=== PATIENT | male | born 1950 | race Caucasian/White ===

== ENCOUNTER 2016-10-27 13:56 | Inpatient (IN) | payer MEDICAID, MEDICARE ==
[2016-10-27 14:15] LABS: ABSOLUTE LYMPHOCYTES (AUTO) 2.4 10^3/uL (0.5-4.7); ABSOLUTE MONOCYTES (AUTO) 1.6 10^3/uL (0.1-1.4); ABSOLUTE NEUT (AUTO) 7.3 10^3/uL (1.7-8.2); BASOPHILS % (AUTO) 0.4 % (0-2); EOSINOPHILS % (AUTO) 0.3 % (0-6); HEMATOCRIT 41.6 % (37.9-51.0); HEMOGLOBIN 14.7 g/dL (13.5-17.0); HGB HCT DIFFERENCE 2.5; MEAN CORPUSCULAR HEMOGLOBIN 35.8 pg (27.0-33.4); MEAN CORPUSCULAR HGB CONC 35.4 g/dL (32.0-36.0); MEAN CORPUSCULAR VOLUME 101 fl (80-97); RED BLOOD COUNT 4.12 10^6/uL (4.35-5.55); RED CELL DISTRIBUTION WIDTH 14.2 % (11.5-14.0); SEGMENTED NEUTROPHILS % (AUTO) 64.3 % (42-78); WHITE BLOOD COUNT 11.3 10^3/uL (4.0-10.5)
[2016-10-27 14:19] LABS: PARTIAL THROMBOPLASTIN TIME 34.5 SEC (23.5-35.8)
--- NOTE | 2016-10-27 14:27 | ER Document Report ---
ED General - General Chief Complaint: General Weakness Stated Complaint: WEAKNESS Time Seen by Provider: 10/27/16 14:05 Mode of Arrival: Ambulatory Information source: Patient Notes: 66 yr old male presents with complaints of weakness of months duration. Pt denies any fevers or chills, nausea or vomiting. Pt ntoes he cannot walk more than 2 steps before he falls. TRAVEL OUTSIDE OF THE [place] IN LAST 30 DAYS: No - HPI Onset: Other Onset/Duration: Persistent Quality of pain: No pain Severity: Moderate Pain Level: Denies Associated symptoms: Weakness Exacerbated by: Denies Relieved by: Denies Similar symptoms previously: Yes Recently seen / treated by doctor: No - Related Data Allergies/Adverse Reactions: No Known Drug Allergies Allergy (Verified 07/08/12 14:32) Past Medical History - Social History Smoking Status: Current Every Day Smoker Cigarette use (# per day): Yes Chew tobacco use (# tins/day): No Smoking Education Provided: No Family History: Reviewed & Not Pertinent - Past Medical History Cardiac Medical History: Reports: Hx Hypercholesterolemia, Hx Hypertension Pulmonary Medical History: Reports: Hx COPD Neurological Medical History: Reports: Hx Seizures Endocrine Medical History: Reports: Hx Diabetes Mellitus Type 2 Psychiatric Medical History: Reports: Hx Depression - Immunizations Hx Diphtheria, Pertussis, Tetanus Vaccination: Yes Hx Pneumococcal Vaccination: 05/01/13 Review of Systems - Review of Systems Notes: PHYSICAL EXAMINATION: GENERAL: chronically ill thin frail appearing male HEAD: Atraumatic, normocephalic. EYES: Pupils equal round and reactive to light, extraocular movements intact, sclera anicteric, conjunctiva are normal. ENT: Nares patent, oropharynx clear without exudates. Moist mucous membranes. NECK: Normal range of motion, supple without lymphadenopathy LUNGS: Breath sounds clear to auscultation bilaterally and equal. No wheezes rales or rhonchi. HEART: Regular rate and rhythm without murmurs ABDOMEN: Soft, nontender, nondistended abdomen. No guarding, no rebound. No masses appreciated. Musculoskeletal: Normal range of motion, no pitting or edema. No cyanosis. NEUROLOGICAL: Cranial nerves grossly intact. Normal speech, extremely weak upon standing Normal sensory, motor exams PSYCH: Normal mood, normal affect. SKIN: Warm, Dry, normal turgor, no rashes or lesions noted. Physical Exam - Vital signs Vitals: Pulse Ox 100 10/27/16 14:12 Course - Re-evaluation Re-evalutation: 10/27/16 14:27 Lab work imaging pending at this time, patient appears very weak however this is chronic, expect electrolyte abnormalities 10/27/16 14:42 Patient's potassium is 2.8 sodium is 125, magnesium levels pending, patient will be given IV fluids and potassium Patient will be admitted since he is unable to ambulate more than a few steps without falling - Vital Signs Vital signs: Temp Pulse Resp BP Pulse Ox 100 10/27/16 14:12 - Laboratory Result Diagrams: 10/27/16 14:05 10/27/16 14:05 Laboratory results interpreted by me: 10/27/16 10/27/16 14:05 14:05 WBC 11.3 H RBC 4.12 L MCV 101 H MCH 35.8 H RDW 14.2 H Monocytes % 14.0 H Absolute Monocytes 1.6 H Sodium 125.7 L Potassium 2.8 L* Chloride 85 L Direct Bilirubin 0.5 H AST 64 H Alkaline Phosphatase 135 H - Diagnostic Test Radiology reviewed: Image reviewed, Reports reviewed - EKG Interpretation by Ma EKG shows normal: Sinus rhythm, [place], Intervals, QRS Complexes Critical Care Note - Critical Care Note Total time excluding time spent on procedures (mins): 33 Comments: 33 minutes of critical care time spent in direct contact evaluating and reevaluating the patient, treating symptoms, reviewing labs and studies and speaking with family and consultants excluding any procedures Discharge - Discharge Clinical Impression: Hyponatremia, Hypokalemia, Weakness Condition: Stable Disposition: ADMITTED INPATIENT Admitting Provider: [facility] Admitted: Telemetry
[2016-10-27 14:35] LABS: ALANINE AMINOTRANSFERASE 42 U/L (21-72); ALBUMIN 4.2 g/dL (3.5-5.0); ALKALINE PHOSPHATASE 135 U/L (38-126); ANION GAP 16 (5-19); ASPARTATE AMINO TRANSFERASE 64 U/L (17-59); BILIRUBIN,DIRECT 0.5 mg/dL (0.0-0.4); BILIRUBIN,TOTAL 1.3 mg/dL (0.2-1.3); BLOOD UREA NITROGEN 11 mg/dL (7-20); CALCIUM 9.5 mg/dL (8.4-10.2); CARBON DIOXIDE 25 mmol/L (22-30); CHLORIDE 85 mmol/L (98-107); CREATINE KINASE 127 U/L (55-170); CREATININE RESULT 0.88 mg/dL (0.52-1.25); GLUCOSE 94 mg/dL (75-110); SODIUM 125.7 mmol/L (137-145); TOTAL PROTEIN 7.4 g/dL (6.3-8.2)
[2016-10-27 14:37] LABS: POTASSIUM 2.8 mmol/L (3.6-5.0)
--- NOTE | 2016-10-27 14:40 | RADIOLOGY REPORT (SQ) ---
EXAM DESCRIPTION: CHEST SINGLE VIEW COMPLETED DATE/TIME: 10/27/2016 2:30 pm REASON FOR STUDY: weak COMPARISON: 07/11/2012 EXAM PARAMETERS: NUMBER OF VIEWS: One view. TECHNIQUE: Single frontal radiographic view of the chest acquired. RADIATION DOSE: NA LIMITATIONS: None. FINDINGS: LUNGS AND PLEURA: No opacities, masses or pneumothorax. No pleural effusion. MEDIASTINUM AND HILAR STRUCTURES: No masses. Contour normal. HEART AND VASCULAR STRUCTURES: Heart normal in size. Normal vasculature. BONES: No acute findings. HARDWARE: None in the chest. OTHER: No other significant finding. IMPRESSION: NO ACUTE RADIOGRAPHIC FINDING IN THE CHEST. TECHNICAL DOCUMENTATION: JOB ID: [id number]
--- NOTE | 2016-10-27 14:40 | RADIOLOGY REPORT (SQ) ---
EXAM DESCRIPTION: CT HEAD WITHOUT COMPLETED DATE/TIME: 10/27/2016 2:25 pm REASON FOR STUDY: weak COMPARISON: 07/08/2012 TECHNIQUE: Axial images acquired through the brain without intravenous contrast. Images reviewed wi th bone, brain and subdural windows. Images stored on PACS. All CT scanners at this facility use dose modulation, iterative reconstruction, and/or weight based d osing when appropriate to reduce radiation dose to as low as reasonably achievable (ALARA). [facility]: Dose Right [facility]: CareDose [facility]: Dose Right [facility]: Teradose 4D [facility]: Head Held High RADIATION DOSE: 62.41 mGy. LIMITATIONS: None. FINDINGS: VENTRICLES: Prominent. CEREBRUM: No masses. No hemorrhage. No midline shift. Areas of low density in the white matter mos t likely due to chronic micro-vascular ischemic change. No evidence for acute infarction. CEREBELLUM: No masses. No hemorrhage. No alteration of density. No evidence for acute infarction. EXTRAAXIAL SPACES: Mild age-related involutional change. No fluid collections. Stable calcified mas s left inferior frontal lobe likely representing a benign meningioma. No new/enlarging masses. ORBITS AND GLOBE: No intra- or extraconal masses. Normal contour of globe without masses. CALVARIUM: No fracture. PARANASAL SINUSES: No fluid or mucosal thickening. SOFT TISSUES: No mass or hematoma. OTHER: No other significant finding. IMPRESSION: NO ACUTE INTRACRANIAL PROCESS. NO SIGNIFICANT CHANGE FROM PRIOR STUDY. TECHNICAL DOCUMENTATION: JOB ID: [id number] Quality ID # [id number]: Final reports with documentation of one or more dose reduction techniques (e.g., Au tomated exposure control, adjustment of the mA and/or kV according to patient size, use of iterative reconstruction technique) 2010 [employer]- All Rights Reserved
[2016-10-27] MEDS ORDERED: POTASSIUM CHLORIDE 10 MEQ TABLET.SA PO ONE (14:41)
[2016-10-27 14:46] LABS: CREATINE KINASE MB 0.97 ng/mL (<4.55)
[2016-10-27 14:47] LABS: TROPONIN I < 0.012 ng/mL
[2016-10-27] MEDS: NORMAL SALINE 1000 ML 1,000 ML IV PRN ×2 (14:49→16:20)
[2016-10-27] MEDS: MAGNESIUM SULFATE/D5W 100 ML IV SCH ×2 (15:18→16:20)
[2016-10-27] MEDS: LORAZEPAM 1 MG TABLET (TAPER DOSING) PO SCH ×2 (18:04→23:43)
[2016-10-27] MEDS ORDERED: NORMAL SALINE 1000 ML 1,000 ML IV PRN (18:15)
[2016-10-27] MEDS ORDERED: DEXTROSE 40% GEL 15 GM TUBE X 2 PO PRN (18:17)
[2016-10-27] MEDS ORDERED: DEXTROSE 50%-WATER SYRINGE 12.5 GM/25 ML DOSE IV PRN (18:17)
[2016-10-27] MEDS ORDERED: GLUCAGON,HUMAN RECOMB 1 MG INJ IM PRN (18:17)
[2016-10-27] MEDS ORDERED: DEXTROSE 40% GEL 15 GM TUBE PO PRN (18:17)
[2016-10-27] MEDS ORDERED: DEXTROSE 50%-WATER SYRINGE 25 GM/50 ML DOSE IV PRN (18:17)
[2016-10-27] MEDS ORDERED: INSULIN LISPRO 100 UNIT/ML 3 ML VIAL SUBCUT PRN (18:19)
--- NOTE | 2016-10-27 21:13 | EKG REPORT ---
SEVERITY:- ABNORMAL ECG - SINUS RHYTHM RIGHT BUNDLE BRANCH BLOCK : Confirmed by: Tacos Parsons 27-Oct-2016 21:11:16
[2016-10-28] MEDS: LORAZEPAM 1 MG TABLET (TAPER DOSING) PO SCH ×2 (05:26→13:02)
[2016-10-28] MEDS: CHOLECALCIFEROL (D3) 1,000 UNIT TABLET PO SCH (09:46)
[2016-10-28] MEDS: PHENYTOIN SODIUM EXTENDED 100 MG CAPSULE PO SCH (09:46)
[2016-10-28] MEDS: DULOXETINE HCL 30 MG CAPSULE.DR PO SCH (09:46)
[2016-10-28 09:47] LABS: ALANINE AMINOTRANSFERASE 43 U/L (21-72); ALBUMIN 3.1 g/dL (3.5-5.0); ALKALINE PHOSPHATASE 106 U/L (38-126); ANION GAP 7 (5-19); ASPARTATE AMINO TRANSFERASE 55 U/L (17-59); BILIRUBIN,DIRECT 0.4 mg/dL (0.0-0.4); BLOOD UREA NITROGEN 9 mg/dL (7-20); CALCIUM 7.9 mg/dL (8.4-10.2); CARBON DIOXIDE 27 mmol/L (22-30); CHLORIDE 96 mmol/L (98-107); CREATININE RESULT 0.65 mg/dL (0.52-1.25); GLUCOSE 87 mg/dL (75-110); MAGNESIUM 1.4 mg/dL (1.6-2.3); SODIUM 129.5 mmol/L (137-145); TOTAL PROTEIN 5.9 g/dL (6.3-8.2)
[2016-10-28] MEDS: LOSARTAN POTASSIUM 50 MG TABLET PO SCH (09:47)
[2016-10-28] MEDS: THIAMINE HCL 100 MG TABLET PO SCH (09:47)
[2016-10-28] MEDS: MULTIVITAMIN TABLET PO SCH (09:47)
[2016-10-28] MEDS: TAMSULOSIN HCL 0.4 MG CAP.SR.24H PO SCH ×2 (09:48→21:13)
[2016-10-28] MEDS: POTASSIUM CHLORIDE 10 MEQ TABLET.SA PO SCH (09:48)
[2016-10-28] MEDS: VITAMIN E (DL, ACETATE) 400 UNIT CAPSULE PO SCH (09:50)
[2016-10-28] MEDS: TIOTROPIUM BROMIDE DPI 5 CAP/KIT (18 MCG/CAP) IH SCH (09:52)
[2016-10-28 09:53] LABS: POTASSIUM 2.7 mmol/L (3.6-5.0)
[2016-10-28] MEDS ORDERED: (PENDING PHARMACY ID) (Cholecalciferol (Vitamin D3) [Vitamin D3] 2,000 UNIT) PO SCH (10:00)
[2016-10-28] MEDS ORDERED: (PENDING PHARMACY ID) (Vitamin E [Vitamin E] 400 UNIT) PO SCH (10:00)
[2016-10-28] MEDS ORDERED: HYDROCHLOROTHIAZIDE 25 MG TABLET PO SCH (10:00)
[2016-10-28] MEDS ORDERED: (PENDING PHARMACY ID) (Duloxetine Hcl [Duloxetine Hcl] 60 MG) PO SCH (10:00)
[2016-10-28] MEDS ORDERED: (PENDING PHARMACY ID) (Potassium Chloride [Potassium Chloride] 10 MEQ) PO SCH (10:00)
[2016-10-28] MEDS ORDERED: [UNRECOGNIZED DRUG - OTHER] PO SCH (10:00)
[2016-10-28] MEDS ORDERED: (PENDING PHARMACY ID) (Multivit-Min/Fa/Lycopen/Lutein [Men 50 Plus Multivitamin Tab] 1 TAB PO SCH (10:00)
[2016-10-28] MEDS: MAGNESIUM SULFATE/D5W 1 GM/100 ML RTUPB IV SCH ×2 (13:43→14:57)
[2016-10-28] MEDS: POTASSI CL 20 MEQ/50 ML RIDER 20 MEQ/50 ML RTUPB IV SCH ×3 (16:04→19:30)
[2016-10-28] MEDS: METFORMIN HCL 500 MG TABLET PO SCH (16:09)
[2016-10-28] MEDS ORDERED: (PENDING PHARMACY ID) (Metformin Hcl [Metformin Hcl Er] 500 MG) PO SCH (17:00)
[2016-10-28] MEDS ORDERED: LORAZEPAM 1 MG TABLET (TAPER DOSING) PO PRN (20:45)
[2016-10-28] MEDS: ATORVASTATIN CALCIUM 10 MG TABLET PO SCH (21:13)
[2016-10-28] MEDS ORDERED: (PENDING PHARMACY ID) (Pravastatin Sodium [Pravastatin Sodium] 40 MG) PO SCH (22:00)
--- NOTE | 2016-10-29 01:04 | PDOC H&P ---
History of Present Illness Admission Date/PCP: 10/27/16 15:03 SANTIAGO SEGUNDO MD Patient complains of: Generalized weakness, Difficulty with ambulation, Alcohol intoxication History of Present Illness: MATEO ROCK is a 66 year old male patient of Dr Segundo who was brought to the ED by family with reported generalized weakness. Patient is a poor historian but his record did revealed significant alcohol abuse, ongoing symptoms for several weeks. Significant alcohol ingestion and difficulty with ambulating with fall. In the ED his initial evwaaluuation was remarkable for inability to walk and his serum alcohol was very elevated. There is no reported observed chest pain or difficulty with breathing. No fever or chills.. No reported vomiting or diarrhea. His comorbidities include HTN, HLD, DM Type 2,, Seizures, Depression and alcohol abuse Past Medical History Cardiac Medical History: Reports: Hyperlipidema, Hypertension Pulmonary Medical History: Reports: Chronic Obstructive Pulmonary Disease (COPD) Neurological Medical History: Reports: Seizures Endocrine Medical History: Reports: Diabetes Mellitus Type 2 Psychiatric Medical History: Reports: Depression Social History Smoking Status: Current Every Day Smoker Cigarettes Packs Per Day: 0.5 Number of Years Smokin Last Time Smoked: 10/27/16 Frequency of Alcohol Use: Heavy Hx Recreational Drug Use: Yes Drugs: Marijuana Hx Prescription Drug Abuse: No - Advance Directive Resuscitation Status: Full Code Family History Family History: Reviewed & Not Pertinent Parental Family History Reviewed: Yes Children Family History Reviewed: Yes Sibling(s) Family History Reviewed.: Yes Medication/Allergy Home Medications: Alendronate Sodium [Alendronate Sodium] 70 mg PO WE 10/27/16 Atenolol [Atenolol] 100 mg PO DAILY 10/27/16 Cholecalciferol (Vitamin D3) [Vitamin D3] 2,000 unit PO DAILY 10/27/16 Ciprofloxacin HCl [Cipro] 500 mg PO Q12 10/27/16 Duloxetine HCl [Duloxetine HCl] 60 mg PO DAILY 10/27/16 Lorazepam [Lorazepam] 1 mg PO Q12HP PRN 10/27/16 Metformin HCl [Metformin HCl ER] 500 mg PO WSUPPER 10/27/16 Multivit-Min/FA/Lycopen/Lutein [Men 50 Plus Multivitamin Tab] 1 tab PO DAILY Phenytoin Sodium Extended 300 mg PO DAILY 10/27/16 Potassium Chloride 10 meq PO DAILY 10/27/16 Pravastatin Sodium [Pravastatin Sodium] 40 mg PO QHS 10/27/16 Tamsulosin HCl [Flomax 0.4 mg Cap.sr] 0.4 mg PO Q12 10/27/16 Telmisartan/Hydrochlorothiazid [Telmisartan-Hctz 80-25 mg Tab] 1 tab PO DAILY Thiamine HCl [Vitamin B-1] 100 mg PO DAILY 10/27/16 Tiotropium [place] [Spiriva Handihaler 5 Cap/Kit (18 Mcg/Cap)] 1 cap IH DAILY Vitamin E 400 unit PO DAILY 10/27/16 Allergies/Adverse Reactions: No Known Drug Allergies Allergy (Verified 07/08/12 14:32) Review of Systems Constitutional: PRESENT: weakness - generalized. ABSENT: chills, fever(s), headache(s), weight gain, weight loss Eyes: PRESENT: visual disturbances - use corrective glasses Ears: ABSENT: hearing changes Cardiovascular: ABSENT: chest pain, dyspnea on exertion, edema, orthropnea, palpitations Respiratory: ABSENT: cough, hemoptysis Gastrointestinal: ABSENT: abdominal pain, constipation, diarrhea, hematemesis, hematochezia, nausea, vomiting Genitourinary: ABSENT: dysuria, hematuria Musculoskeletal: ABSENT: joint swelling Integumentary: ABSENT: rash, wounds Neurological: PRESENT: abnormal gait, frequent falls, lack of coordination, weakness Psychiatric: ABSENT: anxiety, depression, homidical ideation, suicidal ideation Endocrine: ABSENT: cold intolerance, heat intolerance, menstrual abnormalities, polydipsia, polyuria Hematologic/Lymphatic: ABSENT: easy bleeding, easy bruising, lymphadenopathy Allergic/Immunologic: ABSENT: as per HPI, seasonal rhinorrhea, other Physical Exam Vital Signs: Temp Pulse Resp BP Pulse Ox 97.6 F 77 20 100/78 95 10/28/16 08:19 10/28/16 08:19 10/28/16 08:19 10/28/16 08:19 10/28/16 08:19 Intake & Output 10/27/16 10/28/16 10/29/16 06:59 06:59 06:59 Intake Total 1875 Output Total 625 Balance 1250 Weight 83.7 kg General appearance: PRESENT: no acute distress, disheveled Head exam: PRESENT: atraumatic, normocephalic Eye exam: PRESENT: conjunctiva pink, EOMI, PERRLA. ABSENT: scleral icterus Ear exam: PRESENT: normal external ear exam Mouth exam: PRESENT: moist, tongue midline Teeth exam: PRESENT: dental caries, poor dentation Throat exam: ABSENT: post pharyngeal erythema, tonsillar erythema, tonsillar exudate, tonsillogmegaly, other Neck exam: PRESENT: full ROM. ABSENT: carotid bruit, JVD, lymphadenopathy, thyromegaly Respiratory exam: PRESENT: clear to auscultation vinnie, decreased breath sounds Cardiovascular exam: PRESENT: RRR. ABSENT: diastolic murmur, rubs, systolic murmur Pulses: PRESENT: normal dorsalis pedis pul, +2 pedal pulses bilateral Vascular exam: PRESENT: normal capillary refill GI/Abdominal exam: PRESENT: normal bowel sounds, soft. ABSENT: distended, guarding, mass, organolmegaly, rebound, tenderness Rectal exam: PRESENT: deferred Extremities exam: PRESENT: pedal edema Musculoskeletal exam: PRESENT: deformity - related to joint involvement with arthritis Neurological exam: PRESENT: alert, awake, oriented to person, oriented to place , oriented to time, oriented to situation, CN II-XII grossly intact. ABSENT: motor sensory deficit Psychiatric exam: PRESENT: appropriate affect, normal mood. ABSENT: homicidal ideation, suicidal ideation Skin exam: PRESENT: dry, intact, warm. ABSENT: cyanosis, rash Results Laboratory Results: See [facility] for laboratory results that form a significant portion of my medical decision making in this case. Impressions: Chest X-Ray 10/27/16 14:06 IMPRESSION: NO ACUTE RADIOGRAPHIC FINDING IN THE CHEST. Head CT 10/27/16 14:06 IMPRESSION: NO ACUTE INTRACRANIAL PROCESS. NO SIGNIFICANT CHANGE FROM PRIOR STUDY. Assessment & Plan - Diagnosis (1) Alcohol intoxication in active alcoholic with delirium Is this a current diagnosis for this admission?: YesPlan: See admitting physician orders (2) Hypokalemia Is this a current diagnosis for this admission?: YesPlan: See admitting physician orders (3) Hyponatremia Is this a current diagnosis for this admission?: YesPlan: See admitting physician orders (4) Weakness Is this a current diagnosis for this admission?: YesPlan: See admitting physician orders - Time Time Spent: 50 to 70 Minutes Anticipated discharge: SNF Within: Other - Inpatient Certification Medical Necessity: Need Close Monitoring Due to Risk of Patient Decompensation, Need For IV Fluids, Need For Continuous Telemetry Monitoring, Risk of Complication if Not Cared For in Hospital Post Hospital Care: D/C or Transfer Summary - Plan Summary Plan Summary: See admitting physician orders
[2016-10-29] MEDS: LORAZEPAM 1 MG TABLET (TAPER DOSING) PO SCH ×4 (03:09→20:57)
[2016-10-29 06:43] LABS: ANION GAP 8 (5-19); BLOOD UREA NITROGEN 9 mg/dL (7-20); CALCIUM 8.6 mg/dL (8.4-10.2); CARBON DIOXIDE 26 mmol/L (22-30); CHLORIDE 97 mmol/L (98-107); CREATININE RESULT 0.72 mg/dL (0.52-1.25); GLUCOSE 88 mg/dL (75-110); MAGNESIUM 1.5 mg/dL (1.6-2.3); SODIUM 131.4 mmol/L (137-145)
[2016-10-29 06:58] LABS: POTASSIUM 3.7 mmol/L (3.6-5.0)
[2016-10-29] MEDS ORDERED: (PENDING PHARMACY ID) (Alendronate Sodium [Alendronate Sodium] 70 MG) PO SCH (08:38)
[2016-10-29] MEDS: DULOXETINE HCL 30 MG CAPSULE.DR PO SCH (09:41)
[2016-10-29] MEDS: PHENYTOIN SODIUM EXTENDED 100 MG CAPSULE PO SCH (09:41)
[2016-10-29] MEDS: METFORMIN HCL 500 MG TABLET PO SCH ×2 (09:41→17:27)
[2016-10-29] MEDS: LOSARTAN POTASSIUM 50 MG TABLET PO SCH (09:42)
[2016-10-29] MEDS: POTASSIUM CHLORIDE 10 MEQ TABLET.SA PO SCH ×3 (09:42→14:18)
[2016-10-29] MEDS: THIAMINE HCL 100 MG TABLET PO SCH (09:43)
[2016-10-29] MEDS: TAMSULOSIN HCL 0.4 MG CAP.SR.24H PO SCH ×2 (09:43→21:03)
[2016-10-29] MEDS: CHOLECALCIFEROL (D3) 1,000 UNIT TABLET PO SCH (09:43)
[2016-10-29] MEDS: MULTIVITAMIN TABLET PO SCH (09:43)
[2016-10-29] MEDS: VITAMIN E (DL, ACETATE) 400 UNIT CAPSULE PO SCH (09:43)
[2016-10-29] MEDS: TIOTROPIUM BROMIDE DPI 5 CAP/KIT (18 MCG/CAP) IH SCH (09:44)
[2016-10-29] MEDS: MAGNESIUM SULFATE/D5W 100 ML IV SCH ×2 (09:46→11:18)
--- NOTE | 2016-10-29 19:59 | PDOC PROGRESS REPORT ---
Subjective Progress Note for:: 10/29/16 Subjective:: Patient denied any chest pain or difficulty with breathing. No nausea or vomiting. Tolerating oral feeding. No constipation. No reported fever or chills. He remain fairly lucid sine last clinical evaluation. Physical Exam Vital Signs: Temp Pulse Resp BP Pulse Ox 97.7 F 70 18 115/96 H 93 10/29/16 07:16 10/29/16 07:16 10/29/16 07:16 10/29/16 07:16 10/29/16 07:16 Intake & Output 10/28/16 10/29/16 10/30/16 06:59 06:59 06:59 Intake Total 1875 580 Output Total 625 1450 Balance 1250 -870 Weight 83.7 kg 86.8 kg Physical Exam: General appearance: PRESENT: no acute distress, disheveled Head exam: PRESENT: atraumatic, normocephalic Eye exam: PRESENT: conjunctiva pink, EOMI, PERRLA. ABSENT: scleral icterus Mouth exam: PRESENT: moist, tongue midline Teeth exam: PRESENT: dental caries, poor dentation Throat exam: ABSENT: post pharyngeal erythema, tonsillar erythema, tonsillar exudate, tonsillogmegaly, other Neck exam: PRESENT: full ROM. ABSENT: carotid bruit, JVD, lymphadenopathy, thyromegaly Respiratory exam: PRESENT: clear to auscultation vinnie, decreased breath sounds Cardiovascular exam: PRESENT: RRR. ABSENT: diastolic murmur, rubs, systolic murmur GI/Abdominal exam: PRESENT: normal bowel sounds, soft. ABSENT: distended, guarding, mass, organomegaly, rebound, tenderness Extremities exam: PRESENT: pedal edema Musculoskeletal exam: PRESENT: deformity - related to joint involvement with arthritis Neurological exam: PRESENT: alert, awake, oriented to person, oriented to place , oriented to time, oriented to situation, CN II-XII grossly intact. ABSENT: motor sensory deficit Psychiatric exam: PRESENT: appropriate affect, normal mood. ABSENT: homicidal ideation, suicidal ideation Skin exam: PRESENT: dry, intact, warm. ABSENT: cyanosis, rash Results Laboratory Results: 10/29/16 05:21 10/28/16 10/29/16 09:03 05:21 Sodium 129.5 L 131.4 L Potassium 2.7 L* 3.7 D Chloride 96 L 97 L Carbon Dioxide 27 26 Anion Gap 7 8 BUN 9 9 Creatinine 0.65 0.72 Est GFR ( Amer) > 60 > 60 Est GFR (Non-Af Amer) > 60 > 60 Glucose 87 88 Calcium 7.9 L 8.6 Magnesium 1.4 L 1.5 L Total Bilirubin 1.0 AST 55 ALT 43 Alkaline Phosphatase 106 Total Protein 5.9 L Albumin 3.1 L Impressions: Chest X-Ray 10/27/16 14:06 IMPRESSION: NO ACUTE RADIOGRAPHIC FINDING IN THE CHEST. Head CT 10/27/16 14:06 IMPRESSION: NO ACUTE INTRACRANIAL PROCESS. NO SIGNIFICANT CHANGE FROM PRIOR STUDY. Assessment & Plan - Diagnosis (1) Alcohol intoxication in active alcoholic with delirium Is this a current diagnosis for this admission?: YesPlan: See covering attending physician orders (2) Hypokalemia Is this a current diagnosis for this admission?: YesPlan: See covering attending physician orders. There is some improvement in his hypokalemia. He will receive further potassium replacement therapy. (3) Hyponatremia Is this a current diagnosis for this admission?: YesPlan: See covering attending physician orders (4) Weakness Is this a current diagnosis for this admission?: YesPlan: See covering attending physician orders . I will request PT evaluation for ambulatory safety. (5) Hypomagnesemia Is this a current diagnosis for this admission?: YesPlan: Patient will receive replacement therapy. Low level most likely related to his alcohol associated electrolytes derangement. 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
[2016-10-29] MEDS: ATORVASTATIN CALCIUM 10 MG TABLET PO SCH (21:03)
[2016-10-30] MEDS: METFORMIN HCL 500 MG TABLET PO SCH ×2 (10:51→17:18)
[2016-10-30] MEDS: TIOTROPIUM BROMIDE DPI 5 CAP/KIT (18 MCG/CAP) IH SCH (10:51)
[2016-10-30] MEDS: PHENYTOIN SODIUM EXTENDED 100 MG CAPSULE PO SCH (10:52)
[2016-10-30] MEDS: VITAMIN E (DL, ACETATE) 400 UNIT CAPSULE PO SCH (10:52)
[2016-10-30] MEDS: CHOLECALCIFEROL (D3) 1,000 UNIT TABLET PO SCH (10:52)
[2016-10-30] MEDS: POTASSIUM CHLORIDE 10 MEQ TABLET.SA PO SCH (10:53)
[2016-10-30] MEDS: MULTIVITAMIN TABLET PO SCH (10:53)
[2016-10-30] MEDS: TAMSULOSIN HCL 0.4 MG CAP.SR.24H PO SCH ×2 (10:53→22:45)
[2016-10-30] MEDS: THIAMINE HCL 100 MG TABLET PO SCH (10:53)
[2016-10-30] MEDS: DULOXETINE HCL 30 MG CAPSULE.DR PO SCH (10:53)
[2016-10-30] MEDS: LOSARTAN POTASSIUM 50 MG TABLET PO SCH (10:54)
--- NOTE | 2016-10-30 20:58 | PDOC PROGRESS REPORT ---
Subjective Progress Note for:: 10/30/16 Subjective:: Patient , alcoholic admitted because of electrolyte derangement and alcohol intoxication, he was seen by the bedside Physical Exam Vital Signs: Temp Pulse Resp BP Pulse Ox 98.2 F 100 18 128/82 H 99 10/30/16 20:20 10/30/16 20:20 10/30/16 20:20 10/30/16 20:20 10/30/16 20:20 Intake & Output 10/29/16 10/30/16 10/31/16 06:59 06:59 06:59 Intake Total 580 1900 958 Output Total 1450 500 200 Balance -870 1400 758 Weight 86.8 kg 86.8 kg General appearance: PRESENT: no acute distress Eye exam: PRESENT: PERRLA Respiratory exam: PRESENT: decreased breath sounds Cardiovascular exam: PRESENT: +S1, +S2 GI/Abdominal exam: PRESENT: soft Neurological exam: PRESENT: alert, CN II-XII grossly intact Results Laboratory Results: 10/29/16 05:21 Impressions: Chest X-Ray 10/27/16 14:06 IMPRESSION: NO ACUTE RADIOGRAPHIC FINDING IN THE CHEST. Head CT 10/27/16 14:06 IMPRESSION: NO ACUTE INTRACRANIAL PROCESS. NO SIGNIFICANT CHANGE FROM PRIOR STUDY. Assessment & Plan - Diagnosis (1) Alcohol intoxication in active alcoholic with delirium Is this a current diagnosis for this admission?: Yes (2) Hypokalemia Is this a current diagnosis for this admission?: Yes (3) Hypomagnesemia Is this a current diagnosis for this admission?: Yes (4) Hyponatremia Is this a current diagnosis for this admission?: Yes - Plan Summary Plan Summary: follow lab data ,continue treatment
[2016-10-30 21:42] LABS: ALANINE AMINOTRANSFERASE 37 U/L (21-72); ALKALINE PHOSPHATASE 109 U/L (38-126); ANION GAP 7 (5-19); ASPARTATE AMINO TRANSFERASE 38 U/L (17-59); BILIRUBIN,DIRECT 0.5 mg/dL (0.0-0.4); BILIRUBIN,TOTAL 0.7 mg/dL (0.2-1.3); BLOOD UREA NITROGEN 13 mg/dL (7-20); CALCIUM 9.5 mg/dL (8.4-10.2); CARBON DIOXIDE 27 mmol/L (22-30); CHLORIDE 99 mmol/L (98-107); CREATININE RESULT 0.75 mg/dL (0.52-1.25); GLUCOSE 96 mg/dL (75-110); POTASSIUM 4.4 mmol/L (3.6-5.0); SODIUM 132.6 mmol/L (137-145); TOTAL PROTEIN 5.7 g/dL (6.3-8.2)
[2016-10-30] MEDS: ATORVASTATIN CALCIUM 10 MG TABLET PO SCH (22:46)
[2016-10-31] MEDS: METFORMIN HCL 500 MG TABLET PO SCH ×2 (08:32→17:29)
[2016-10-31] MEDS: CHOLECALCIFEROL (D3) 1,000 UNIT TABLET PO SCH (10:21)
[2016-10-31] MEDS: POTASSIUM CHLORIDE 10 MEQ TABLET.SA PO SCH (10:21)
[2016-10-31] MEDS: PHENYTOIN SODIUM EXTENDED 100 MG CAPSULE PO SCH (10:21)
[2016-10-31] MEDS: MULTIVITAMIN TABLET PO SCH (10:22)
[2016-10-31] MEDS: VITAMIN E (DL, ACETATE) 400 UNIT CAPSULE PO SCH (10:22)
[2016-10-31] MEDS: LOSARTAN POTASSIUM 50 MG TABLET PO SCH (10:22)
[2016-10-31] MEDS: TAMSULOSIN HCL 0.4 MG CAP.SR.24H PO SCH ×2 (10:22→21:37)
[2016-10-31] MEDS: DULOXETINE HCL 30 MG CAPSULE.DR PO SCH (10:22)
[2016-10-31] MEDS: TIOTROPIUM BROMIDE DPI 5 CAP/KIT (18 MCG/CAP) IH SCH (10:22)
[2016-10-31] MEDS: THIAMINE HCL 100 MG TABLET PO SCH (10:23)
--- NOTE | 2016-10-31 19:50 | PDOC PROGRESS REPORT ---
Subjective Progress Note for:: 10/31/16 Subjective:: Patient was admitted because of acute alcohol intoxication associated with electrolyte derangement is extremely deconditioned and the plan is for transfer to half-way for rehabilitation next week Physical Exam Vital Signs: Temp Pulse Resp BP Pulse Ox 98.0 F 95 18 138/95 H 100 10/31/16 15:45 10/31/16 15:45 10/31/16 15:45 10/31/16 15:45 10/31/16 15:45 Intake & Output 10/30/16 10/31/16 11/01/16 06:59 06:59 06:59 Intake Total 1900 1313 1574 Output Total 500 1100 525 Balance 8583 057 1308 Weight 86.8 kg 84.9 kg General appearance: PRESENT: no acute distress Eye exam: PRESENT: PERRLA Respiratory exam: PRESENT: clear to auscultation vinnie Cardiovascular exam: PRESENT: +S1, +S2 GI/Abdominal exam: PRESENT: soft Neurological exam: PRESENT: alert, CN II-XII grossly intact Results Laboratory Results: 10/30/16 21:05 10/30/16 21:05 Sodium 132.6 L Potassium 4.4 Chloride 99 Carbon Dioxide 27 Anion Gap 7 BUN 13 Creatinine 0.75 Est GFR ( Amer) > 60 Est GFR (Non-Af Amer) > 60 Glucose 96 Calcium 9.5 Total Bilirubin 0.7 AST 38 ALT 37 Alkaline Phosphatase 109 Total Protein 5.7 L Albumin 3.0 L Impressions: Chest X-Ray 10/27/16 14:06 IMPRESSION: NO ACUTE RADIOGRAPHIC FINDING IN THE CHEST. Head CT 10/27/16 14:06 IMPRESSION: NO ACUTE INTRACRANIAL PROCESS. NO SIGNIFICANT CHANGE FROM PRIOR STUDY. Assessment & Plan - Diagnosis (1) Alcohol intoxication in active alcoholic with delirium Is this a current diagnosis for this admission?: Yes (2) Hypokalemia Is this a current diagnosis for this admission?: Yes (3) Hypomagnesemia Is this a current diagnosis for this admission?: Yes (4) Hyponatremia Is this a current diagnosis for this admission?: Yes - Plan Summary Plan Summary: We will continue present treatment
[2016-10-31] MEDS: ATORVASTATIN CALCIUM 10 MG TABLET PO SCH (21:37)
[2016-10-31] MEDS: LORAZEPAM 1 MG TABLET (TAPER DOSING) PO SCH (21:37)
[2016-11-01] MEDS: METFORMIN HCL 500 MG TABLET PO SCH ×2 (08:09→17:11)
[2016-11-01] MEDS: THIAMINE HCL 100 MG TABLET PO SCH (09:23)
[2016-11-01] MEDS: POTASSIUM CHLORIDE 10 MEQ TABLET.SA PO SCH (09:23)
[2016-11-01] MEDS: PHENYTOIN SODIUM EXTENDED 100 MG CAPSULE PO SCH (09:23)
[2016-11-01] MEDS: MULTIVITAMIN TABLET PO SCH (09:23)
[2016-11-01] MEDS: DULOXETINE HCL 30 MG CAPSULE.DR PO SCH (09:23)
[2016-11-01] MEDS: LOSARTAN POTASSIUM 50 MG TABLET PO SCH (09:24)
[2016-11-01] MEDS: CHOLECALCIFEROL (D3) 1,000 UNIT TABLET PO SCH (09:24)
[2016-11-01] MEDS: TAMSULOSIN HCL 0.4 MG CAP.SR.24H PO SCH ×2 (09:25→21:12)
[2016-11-01] MEDS: VITAMIN E (DL, ACETATE) 400 UNIT CAPSULE PO SCH (09:25)
[2016-11-01] MEDS: TIOTROPIUM BROMIDE DPI 5 CAP/KIT (18 MCG/CAP) IH SCH (09:26)
--- NOTE | 2016-11-01 11:30 | PDOC PROGRESS REPORT ---
Subjective Progress Note for:: 11/01/16 Subjective:: Patient denied any chest pain or difficulty with breathing. No nausea or vomiting. Tolerating oral feeding. No constipation. No reported fever or chills. He awaiting placement in SNF for short term rehabilitation. Physical Exam Vital Signs: Temp Pulse Resp BP Pulse Ox 98.1 F 83 16 129/81 H 100 10/31/16 23:36 11/01/16 07:53 11/01/16 07:53 11/01/16 07:53 11/01/16 07:53 Intake & Output 10/31/16 11/01/16 11/02/16 06:59 06:59 06:59 Intake Total 1313 2279 Output Total 1100 1425 Balance 213 854 Weight 84.9 kg 85.2 kg Physical Exam: General appearance: PRESENT: no acute distress, disheveled Head exam: PRESENT: atraumatic, normocephalic Eye exam: PRESENT: conjunctiva pink, EOMI, PERRLA. ABSENT: scleral icterus Mouth exam: PRESENT: moist, tongue midline Teeth exam: PRESENT: dental caries, poor dentation Neck exam: PRESENT: full ROM. ABSENT: carotid bruit, JVD, lymphadenopathy, thyromegaly Respiratory exam: PRESENT: clear to auscultation vinnie, decreased breath sounds Cardiovascular exam: PRESENT: RRR. ABSENT: diastolic murmur, rubs, systolic murmur GI/Abdominal exam: PRESENT: normal bowel sounds, soft. ABSENT: distended, guarding, mass, organomegaly, rebound, tenderness Extremities exam: PRESENT: pedal edema Musculoskeletal exam: PRESENT: deformity - related to joint involvement with arthritis Neurological exam: PRESENT: alert, awake, oriented to person, oriented to place , oriented to time, oriented to situation, CN II-XII grossly intact. ABSENT: motor sensory deficit Psychiatric exam: PRESENT: appropriate affect, normal mood. ABSENT: homicidal ideation, suicidal ideation Skin exam: PRESENT: dry, intact, warm. ABSENT: cyanosis, rash Results Laboratory Results: 10/30/16 21:05 Impressions: Chest X-Ray 10/27/16 14:06 IMPRESSION: NO ACUTE RADIOGRAPHIC FINDING IN THE CHEST. Head CT 10/27/16 14:06 IMPRESSION: NO ACUTE INTRACRANIAL PROCESS. NO SIGNIFICANT CHANGE FROM PRIOR STUDY. Assessment & Plan - Diagnosis (1) Alcohol intoxication in active alcoholic with delirium Is this a current diagnosis for this admission?: YesPlan: See covering attending physician orders (2) Hypokalemia Is this a current diagnosis for this admission?: Yes (3) Hyponatremia Is this a current diagnosis for this admission?: Yes (4) Weakness Is this a current diagnosis for this admission?: YesPlan: See covering attending physician orders . Awaiting SNF placement for rehabilitation. (5) Hypomagnesemia Is this a current diagnosis for this admission?: Yes
[2016-11-01] MEDS: ATORVASTATIN CALCIUM 10 MG TABLET PO SCH (21:12)
[2016-11-01] MEDS ORDERED: LORAZEPAM 1 MG TABLET PO ONE (23:15)
[2016-11-02] MEDS: METFORMIN HCL 500 MG TABLET PO SCH ×2 (08:04→17:52)
[2016-11-02] MEDS: THIAMINE HCL 100 MG TABLET PO SCH (09:05)
[2016-11-02] MEDS: LOSARTAN POTASSIUM 50 MG TABLET PO SCH (09:05)
[2016-11-02] MEDS: POTASSIUM CHLORIDE 10 MEQ TABLET.SA PO SCH (09:05)
[2016-11-02] MEDS: MULTIVITAMIN TABLET PO SCH (09:05)
[2016-11-02] MEDS: TAMSULOSIN HCL 0.4 MG CAP.SR.24H PO SCH ×2 (09:05→21:24)
[2016-11-02] MEDS: DULOXETINE HCL 30 MG CAPSULE.DR PO SCH (09:06)
[2016-11-02] MEDS: CHOLECALCIFEROL (D3) 1,000 UNIT TABLET PO SCH (09:06)
[2016-11-02] MEDS: PHENYTOIN SODIUM EXTENDED 100 MG CAPSULE PO SCH (09:06)
[2016-11-02] MEDS: VITAMIN E (DL, ACETATE) 400 UNIT CAPSULE PO SCH (09:06)
[2016-11-02] MEDS ORDERED: LORAZEPAM INJ 2 MG/1 ML VIAL ONE ×2 (10:03→15:39)
--- NOTE | 2016-11-02 10:11 | PDOC PROGRESS REPORT ---
Subjective Progress Note for:: 11/02/16 Subjective:: Patient had episode of seizure activity earlier this morning that lasted about1- 2 minutes. Patient recovered before administration of prescribed Lorazepam. There is some demonstrable post ictal confusion. No reported incontinence or injury. Patient denied any chest pain or difficulty with breathing. No nausea or vomiting. Tolerating oral feeding. No constipation. No reported fever or chills. He awaiting placement in SNF for short term rehabilitation. Physical Exam Vital Signs: Temp Pulse Resp BP Pulse Ox 98.4 F 86 16 129/84 H 98 11/02/16 08:00 11/02/16 08:01 11/02/16 08:01 11/02/16 08:01 11/02/16 08:01 Intake & Output 11/01/16 11/02/16 11/03/16 06:59 06:59 06:59 Intake Total 2279 1026 Output Total 1425 1175 Balance 854 -149 Weight 85.2 kg 84.3 kg Physical Exam: General appearance: PRESENT: no acute distress, disheveled Head exam: PRESENT: atraumatic, normocephalic Eye exam: PRESENT: conjunctiva pink, EOMI, PERRLA. ABSENT: scleral icterus Mouth exam: PRESENT: moist, tongue midline Teeth exam: PRESENT: dental caries, poor dentation Neck exam: PRESENT: full ROM. ABSENT: carotid bruit, JVD, lymphadenopathy, thyromegaly Respiratory exam: PRESENT: clear to auscultation vinnie, decreased breath sounds Cardiovascular exam: PRESENT: RRR. ABSENT: diastolic murmur, rubs, systolic murmur GI/Abdominal exam: PRESENT: normal bowel sounds, soft. ABSENT: distended, guarding, mass, organomegaly, rebound, tenderness Extremities exam: PRESENT: pedal edema Musculoskeletal exam: PRESENT: deformity - related to joint involvement with arthritis Neurological exam: PRESENT: alert, awake, oriented to person, oriented to place , oriented to time, oriented to situation, CN II-XII grossly intact. ABSENT: motor sensory deficit Psychiatric exam: PRESENT: appropriate affect, normal mood. ABSENT: homicidal ideation, suicidal ideation Skin exam: PRESENT: dry, intact, warm. ABSENT: cyanosis, rash Results Laboratory Results: 10/30/16 21:05 Impressions: Chest X-Ray 10/27/16 14:06 IMPRESSION: NO ACUTE RADIOGRAPHIC FINDING IN THE CHEST. Head CT 10/27/16 14:06 IMPRESSION: NO ACUTE INTRACRANIAL PROCESS. NO SIGNIFICANT CHANGE FROM PRIOR STUDY. Assessment & Plan - Diagnosis (1) Alcohol intoxication in active alcoholic with delirium Is this a current diagnosis for this admission?: Yes (2) Hypokalemia Is this a current diagnosis for this admission?: Yes (3) Hyponatremia Is this a current diagnosis for this admission?: Yes (4) Weakness Is this a current diagnosis for this admission?: Yes (5) Hypomagnesemia Is this a current diagnosis for this admission?: Yes (6) Seizure disorder Is this a current diagnosis for this admission?: YesPlan: Obtain Dilantin level. Continue on Dilantin already instituted dosing regimen and adjust as needed after review of the serum level. - Time Time Spent with patient: 25-34 minutes Medications reviewed and adjusted accordingly: Yes Anticipated discharge: SNF - for short term rehabilitation. - Inpatient Certification Based on my medical assessment, after consideration of the patient's comorbidities, presenting symptoms, or acuity I expect that the services needed warrant INPATIENT care.: Yes I certify that my determination is in accordance with my understanding of Medicare's requirements for reasonable and necessary INPATIENT services [42 CFR 412.3e].: Yes Medical Necessity: Need Close Monitoring Due to Risk of Patient Decompensation, Need For Continuous Telemetry Monitoring, Risk of Complication if Not Cared For in Hospital Post Hospital Care: D/C or Transfer Summary - Plan Summary Plan Summary: See covering attending physician orders.
[2016-11-02] MEDS ORDERED: PHENYTOIN SODIUM INJ/PF 250 MG/5 ML SDV ONE (11:37)
[2016-11-02] MEDS: TIOTROPIUM BROMIDE DPI 5 CAP/KIT (18 MCG/CAP) IH SCH (15:55)
[2016-11-02] MEDS ORDERED: PHENOBARBITAL 64.8 MG TABLET PO ONE (16:30)
[2016-11-02] MEDS ORDERED: PHENOBARBITAL 64.8 MG TABLET PO SCH (18:00)
--- NOTE | 2016-11-02 18:04 | RADIOLOGY REPORT (SQ) ---
EXAM DESCRIPTION: CT HEAD WITHOUT COMPLETED DATE/TIME: 11/02/2016 5:52 pm REASON FOR STUDY: SEIZURE X3 COMPARISON: 10/27/2016. TECHNIQUE: Axial images acquired through the brain without intravenous contrast. Images reviewed wi th bone, brain and subdural windows. Images stored on PACS. All CT scanners at this facility use dose modulation, iterative reconstruction, and/or weight based d osing when appropriate to reduce radiation dose to as low as reasonably achievable (ALARA). [facility]: Dose Right [facility]: CareDose [facility]: Dose Right [facility]: Teradose 4D [facility]: YouMail RADIATION DOSE: 64.61 mGy. LIMITATIONS: Motion artifact necessitated partial repeat scanning. FINDINGS: VENTRICLES: Age-appropriate. No hydrocephalus. CEREBRUM: No masses. No hemorrhage. No midline shift. Normal bonner/white matter differentiation. N o evidence for acute infarction. CEREBELLUM: No masses. No hemorrhage. No alteration of density. No evidence for acute infarction. EXTRAAXIAL SPACES: No fluid collections. No masses. ORBITS AND GLOBE: No intra- or extraconal masses. Normal contour of globe without masses. CALVARIUM: No fracture. PARANASAL SINUSES: No fluid or mucosal thickening. SOFT TISSUES: No mass or hematoma. OTHER: No other significant finding. IMPRESSION: No acute intracranial abnormality. TECHNICAL DOCUMENTATION: JOB ID: [id number] Quality ID # [id number]: Final reports with documentation of one or more dose reduction techniques (e.g., Au tomated exposure control, adjustment of the mA and/or kV according to patient size, use of iterative reconstruction technique) 2010 [employer]- All Rights Reserved
[2016-11-02] MEDS: LORAZEPAM 1 MG TABLET PO SCH (21:24)
[2016-11-02] MEDS: ATORVASTATIN CALCIUM 10 MG TABLET PO SCH (21:24)
[2016-11-03] MEDS: VITAMIN E (DL, ACETATE) 400 UNIT CAPSULE PO SCH (09:26)
[2016-11-03] MEDS: MULTIVITAMIN TABLET PO SCH (09:28)
[2016-11-03] MEDS: THIAMINE HCL 100 MG TABLET PO SCH (09:28)
[2016-11-03] MEDS: PHENYTOIN SODIUM EXTENDED 100 MG CAPSULE PO SCH (09:29)
[2016-11-03] MEDS: TAMSULOSIN HCL 0.4 MG CAP.SR.24H PO SCH ×2 (09:29→20:34)
[2016-11-03] MEDS: PHENOBARBITAL 64.8 MG TABLET PO SCH ×2 (09:29→17:23)
[2016-11-03] MEDS: POTASSIUM CHLORIDE 10 MEQ TABLET.SA PO SCH (09:29)
[2016-11-03] MEDS: LOSARTAN POTASSIUM 50 MG TABLET PO SCH (09:29)
[2016-11-03] MEDS: DULOXETINE HCL 30 MG CAPSULE.DR PO SCH (09:29)
[2016-11-03] MEDS: METFORMIN HCL 500 MG TABLET PO SCH ×2 (09:30→16:33)
[2016-11-03] MEDS: CHOLECALCIFEROL (D3) 1,000 UNIT TABLET PO SCH (09:30)
[2016-11-03] MEDS: TIOTROPIUM BROMIDE DPI 5 CAP/KIT (18 MCG/CAP) IH SCH (09:31)
--- NOTE | 2016-11-03 19:37 | PDOC TRANSFER SUMMARY ---
General - Admit/Disc Date/PCP Admission Date/Primary Care Provider: 10/27/16 17:10 SANTIAGO SEGUNDO MD Discharge Date: 11/04/16 - Discharge Diagnosis (1) Alcohol intoxication in active alcoholic with delirium Is this a current diagnosis for this admission?: Yes (2) Hypokalemia Is this a current diagnosis for this admission?: Yes (3) Hypomagnesemia Is this a current diagnosis for this admission?: Yes (4) Hyponatremia Is this a current diagnosis for this admission?: Yes - Additional Information Resuscitation Status: Full Code Discharge Diet: Regular Discharge Activity: Activity As Tolerated Home Medications: Alendronate Sodium 70 mg PO WE 10/27/16 Atenolol 100 mg PO DAILY 10/27/16 Cholecalciferol (Vitamin D3) [Vitamin D3] 2,000 unit PO DAILY 10/27/16 Duloxetine HCl 60 mg PO DAILY 10/27/16 Lorazepam 1 mg PO Q12HP PRN 10/27/16 Metformin HCl [Metformin HCl ER] 500 mg PO WSUPPER 10/27/16 Multivit-Min/FA/Lycopen/Lutein [Men 50 Plus Multivitamin Tab] 1 tab PO DAILY Phenytoin Sodium Extended 300 mg PO DAILY 10/27/16 Potassium Chloride 10 meq PO DAILY 10/27/16 Tamsulosin HCl [Flomax 0.4 mg Cap.sr] 0.4 mg PO Q12 10/27/16 Telmisartan/Hydrochlorothiazid [Telmisartan-Hctz 80-25 mg Tab] 1 tab PO DAILY Thiamine HCl [Vitamin B-1] 100 mg PO DAILY 10/27/16 Tiotropium Olema [Spiriva Handihaler 5 Cap/Kit (18 Mcg/Cap)] 1 cap IH DAILY Vitamin E 400 unit PO DAILY 10/27/16 History of Present Illness Admission Date/PCP: 10/27/16 17:10 SANTIAGO SEGUNDO MD History of Present Illness: MATEO ROCK is a 66 year old male patient of Dr Segundo who was brought to the ED by family with reported generalized weakness. Patient is a poor historian but his record did revealed significant alcohol abuse, ongoing symptoms for several weeks. Significant alcohol ingestion and difficulty with ambulating with fall. In the ED his initial evwaaluuation was remarkable for inability to walk and his serum alcohol was very elevated. There is no reported observed chest pain or difficulty with breathing. No fever or chills.. No reported vomiting or diarrhea. His comorbidities include HTN, HLD, DM Type 2,, Seizures, Depression and alcohol abuse Hospital Course Hospital Course: Patient was admitted due to acute alcohol intoxication associated metabolic derangement including hypokalemia, hypomagnesemia, hyponatremia and severe deconditioning. The electrolytes are corrected on he was treated with lorazepam and fluid hydration . Patient is very deconditioned the plan is to transfer to custodial for rehabilitation Physical Exam Vital Signs: Temp Pulse Resp BP Pulse Ox 98.1 F 97 17 130/73 H 100 11/03/16 11:34 11/03/16 14:00 11/03/16 11:34 11/03/16 11:34 11/03/16 11:34 Intake & Output 11/02/16 11/03/16 11/04/16 06:59 06:59 06:59 Intake Total 1026 2087 500 Output Total 1175 1000 700 Balance -149 1087 -200 Weight 84.3 kg 82.8 kg General appearance: PRESENT: no acute distress Eye exam: PRESENT: PERRLA Respiratory exam: PRESENT: clear to auscultation vinnie Cardiovascular exam: PRESENT: +S1, +S2 GI/Abdominal exam: PRESENT: soft Neurological exam: PRESENT: alert Results Laboratory Results: 10/30/16 21:05 Impressions: Chest X-Ray 10/27/16 14:06 IMPRESSION: NO ACUTE RADIOGRAPHIC FINDING IN THE CHEST. Head CT 11/02/16 00:00 IMPRESSION: No acute intracranial abnormality.
[2016-11-03] MEDS: LORAZEPAM 1 MG TABLET PO SCH (20:34)
[2016-11-03] MEDS: ATORVASTATIN CALCIUM 10 MG TABLET PO SCH (20:34)
[2016-11-04 08:47] VITALS: BP 143/91
[2016-11-04] MEDS: METFORMIN HCL 500 MG TABLET PO SCH (10:06)
[2016-11-04] MEDS: LOSARTAN POTASSIUM 50 MG TABLET PO SCH (10:07)
[2016-11-04] MEDS: DULOXETINE HCL 30 MG CAPSULE.DR PO SCH (10:07)
[2016-11-04] MEDS: PHENYTOIN SODIUM EXTENDED 100 MG CAPSULE PO SCH (10:07)
[2016-11-04] MEDS: THIAMINE HCL 100 MG TABLET PO SCH (10:07)
[2016-11-04] MEDS: MULTIVITAMIN TABLET PO SCH (10:08)
[2016-11-04] MEDS: VITAMIN E (DL, ACETATE) 400 UNIT CAPSULE PO SCH (10:09)
[2016-11-04] MEDS: PHENOBARBITAL 64.8 MG TABLET PO SCH (10:09)
[2016-11-04] MEDS: TAMSULOSIN HCL 0.4 MG CAP.SR.24H PO SCH (10:09)
[2016-11-04] MEDS: CHOLECALCIFEROL (D3) 1,000 UNIT TABLET PO SCH (10:09)
[2016-11-04] MEDS: POTASSIUM CHLORIDE 10 MEQ TABLET.SA PO SCH (10:10)
[2016-11-04] MEDS: TIOTROPIUM BROMIDE DPI 5 CAP/KIT (18 MCG/CAP) IH SCH (10:10)
== END 2016-11-04 17:33 | DRG 897 ==
LOC: ER 13:56 → EH 15:03 → UNDOADMIN 15:03 → EH 17:10 → 3S 17:10 → UNDOADMIN 10-28 14:08 → 3S 10-28 14:08
PROVIDERS: ADMIT Internal Medicine; ATTEND Internal Medicine
DX: F10.221 Alcohol dependence with intoxication delirium (principal); E87.1 Hypo-osmolality and hyponatremia; E87.6 Hypokalemia; E83.42 Hypomagnesemia; Y90.4 Blood alcohol level of 80-99 mg/100 ml; G40.909 Epilepsy, unspecified, not intractable, without status epilepticus; I10 Essential (primary) hypertension; J44.9 Chronic obstructive pulmonary disease, unspecified; E11.9 Type 2 diabetes mellitus without complications; F32.9 Major depressive disorder, single episode, unspecified; Z79.899 Other long term (current) drug therapy; F17.210 Nicotine dependence, cigarettes, uncomplicated
CPT/HCPCS: 36415; 70450; 71010; 80048; 80053; 80185; 80307; 82550; 82553; 82962; 83735; 84484; 85025; 85610; 85730; 93005; 93010; 99291; G8978-GP; G8979-GP; J1165; J2060; J3475; J3480; J3490; J7030

== ENCOUNTER 2016-11-07 22:54 | Emergency (ER) | payer MEDICAID, MEDICARE ==
--- NOTE | 2016-11-07 23:54 | ER Document Report ---
ED General - General Stated Complaint: POSSIBLE CONSTANT SEIZURES Time Seen by Provider: 11/07/16 23:33 Cannot obtain history due to: Altered mental status Notes: Patient is a 66-year-old male with past medical history of seizures currently on Dilantin for control who presents after having 2 seizures at his nursing facility earlier today. Patient apparently had a 1 minute seizure of tonic- clonic jerking with a postictal phase and an additional 14 minute episode of tonic-clonic jerking. This was able to be terminated after administration of Ativan and Versed IV patient arrives postictal and unable to provide additional meaningful history. His family over the bedside reports that patient has been taking all medications as directed and he has no access to alcohol in the nursing facility. She states that his overall appearance at this time is typical after his seizures. TRAVEL OUTSIDE OF THE [place] IN LAST 30 DAYS: No - Related Data Allergies/Adverse Reactions: No Known Drug Allergies Allergy (Verified 07/08/12 14:32) Past Medical History - General Information source: Relative - Social History Smoking Status: Former Smoker Frequency of alcohol use: None Drug Abuse: None Lives with: [facility] Family History: Reviewed & Not Pertinent - Past Medical History Cardiac Medical History: Reports: Hx Hypercholesterolemia, Hx Hypertension Pulmonary Medical History: Reports: Hx COPD Neurological Medical History: Reports: Hx Seizures Endocrine Medical History: Reports: Hx Diabetes Mellitus Type 2 Psychiatric Medical History: Reports: Hx Depression - Immunizations Hx Diphtheria, Pertussis, Tetanus Vaccination: Yes Hx Pneumococcal Vaccination: 05/01/13 Review of Systems - Review of Systems -: Yes ROS unobtainable due to patient's medical condition Physical Exam - Vital signs Vitals: Pulse Ox 93 11/08/16 00:10 Interpretation: Normal Notes: PHYSICAL EXAMINATION: GENERAL: No acute distress, appears confused HEAD: Atraumatic, normocephalic. EYES: Pupils equal round and reactive to light, extraocular movements intact, sclera anicteric, conjunctiva are normal. ENT: nares patent, oropharynx clear without exudates. Moist mucous membranes. NECK: Normal range of motion, supple without lymphadenopathy LUNGS: Breath sounds clear to auscultation bilaterally and equal. No wheezes rales or rhonchi. HEART: Regular rate and rhythm without murmurs ABDOMEN: Soft, nontender, normoactive bowel sounds. No guarding, no rebound. No masses appreciated. EXTREMITIES: no pitting or edema. No cyanosis. NEUROLOGICAL: Face symmetric. Tongue protrudes midline. Extraocular motions intact. Pupils are 2 mm and equally reactive. Normal speech. 5 out of 5 strength in both the distal and proximal upper and lower extremities bilaterally. Sensation is grossly intact throughout. PSYCH: Alert but confused. Oriented only to person SKIN: Warm, Dry, normal turgor, no rashes or lesions noted. Course - Re-evaluation Re-evalutation: 11/07/16 23:52 Presentation of well-appearing patient after having a seizure. Patient has a known history of seizures. No obvious trigger for today's episode. No focal neurologic deficits. No infectious symptoms, vital sign abnormalities, or evidence of trauma. Based on patient's recent admission with severe hypomagnesia, hypokalemia, hypocalcemia will obtain basic laboratories to assess to ensure that these things have not recurred and will also check a phenytoin level. 11/08/16 01:19 Phenytoin level is low and patient will be loaded with a 1 g loading dose. I have informed the patient's surrogate that he will need an increase in his phenytoin dosing. Labs otherwise show mild hypomagnesia as well as mild hypokalemia but no indication for emergent repletion. Patient has returned to his baseline mental status at this point. At this time will discharge with return precautions and follow-up recommendations. Verbal discharge instructions given a the bedside and opportunity for questions given. Medication warnings reviewed. Patient is in agreement with this plan and has verbalized understanding of return precautions and the need for primary care follow-up in the next 24-72 hours. - Vital Signs Vital signs: Temp Pulse Resp BP Pulse Ox 146/95 H 93 11/08/16 02:00 11/08/16 01:52 - Laboratory Result Diagrams: 11/08/16 00:14 Laboratory results interpreted by me: 11/08/16 11/08/16 00:14 00:14 Sodium 136.5 L Magnesium 1.4 L Phenytoin 7.6 L Discharge - Discharge Clinical Impression: Seizure disorder, Seizures, generalized convulsive Condition: Good Disposition: HOME, SELF-CARE Additional Instructions: Today you had a seizure. It is very important that you do not engage in any activities that could result in severe injury should you have a seizure. Specifically, do not drive a vehicle, go into a body of water, take a bath, climb ladders, or operate any heavy machinery until you have been cleared by your neurologist. Please return to the ED immediately if you have multiple seizures close together, develop a severe headache, weakness, numbness, difficulty speaking, have a seizure in which you do not return to normal within 1 hour of the seizure, or have any other symptoms that are concerning to you. You need to speak with your primary care doctor for increase in the dosing of your Dilantin as your level was low today despite taking it as directed and this likely contributed to your seizure today. Referrals: SANTIAGO SEGUNDO MD [Primary Care Provider] - Follow up tomorrow
[2016-11-08 00:40] LABS: ANION GAP 12 (5-19); BLOOD UREA NITROGEN 13 mg/dL (7-20); CALCIUM 9.7 mg/dL (8.4-10.2); CARBON DIOXIDE 25 mmol/L (22-30); CHLORIDE 100 mmol/L (98-107); CREATININE RESULT 0.74 mg/dL (0.52-1.25); GLUCOSE 88 mg/dL (75-110); MAGNESIUM 1.4 mg/dL (1.6-2.3); POTASSIUM 4.1 mmol/L (3.6-5.0); SODIUM 136.5 mmol/L (137-145)
[2016-11-08] MEDS ORDERED: PHENYTOIN SODIUM INJ/PF 250 MG/5 ML SDV IV ONE (01:05)
[2016-11-08 02:11] VITALS: BP 146/95
--- NOTE | 2016-11-10 09:35 | EKG REPORT ---
SEVERITY:- ABNORMAL ECG - SINUS TACHYCARDIA RIGHT BUNDLE BRANCH BLOCK : Confirmed by: Tacos Parsons 10-Nov-2016 09:35:21
== END 2016-11-08 04:42 | disposition home or self-care (01) ==
LOC: ER 22:54
DX: G40.909 Epilepsy, unspecified, not intractable, without status epilepticus (principal); R41.82 Altered mental status, unspecified; Z79.899 Other long term (current) drug therapy; Z87.891 Personal history of nicotine dependence
CPT/HCPCS: 93005; 99284; 96374; 36415; 83735; 80185; 80048; 93010; J1165

== ENCOUNTER 2016-11-08 07:07 | Emergency (ER) | payer MEDICARE, MEDICAID ==
--- NOTE | 2016-11-08 07:20 | ER Document Report ---
ED Fall - General Chief Complaint: Fall Stated Complaint: FALL/NO COMPLAINT Time Seen by Provider: 11/08/16 07:20 Mode of Arrival: Medic Information source: Patient Notes: Is a 66-year-old male who presents to the ER via EMS from the residential today after he was just discharged at 530 this morning because he went to get up out of his wheelchair to go to the bathroom, lost his footing and "down" on the floor. Patient states that he just hit his bottom hard and did not hit his head or lose consciousness. He denies any pain at this time. He denies any injuries. TRAVEL OUTSIDE OF THE [place] IN LAST 30 DAYS: No - Related data Allergies/Adverse Reactions: No Known Drug Allergies Allergy (Verified 11/08/16 07:34) Past Medical History - General Information source: Patient - Social History Smoking Status: Unknown if Ever Smoked Family History: Reviewed & Not Pertinent - Past Medical History Cardiac Medical History: Reports: Hx Hypercholesterolemia, Hx Hypertension Pulmonary Medical History: Reports: Hx COPD Neurological Medical History: Reports: Hx Seizures Endocrine Medical History: Reports: Hx Diabetes Mellitus Type 2 Psychiatric Medical History: Reports: Hx Depression - Immunizations Hx Diphtheria, Pertussis, Tetanus Vaccination: Yes Hx Pneumococcal Vaccination: 05/01/13 Review of Systems - Review of Systems Constitutional: No symptoms reported EENT: No symptoms reported Cardiovascular: No symptoms reported Respiratory: No symptoms reported Gastrointestinal: No symptoms reported Genitourinary: No symptoms reported Male Genitourinary: No symptoms reported Musculoskeletal: No symptoms reported Skin: No symptoms reported Hematologic/Lymphatic: No symptoms reported Neurological/Psychological: No symptoms reported Physical Exam - Vital signs Vitals: Temp Pulse Resp BP Pulse Ox 98.3 F 77 18 148/94 H 98 11/08/16 07:20 11/08/16 07:20 11/08/16 07:20 11/08/16 07:20 11/08/16 07:20 - Notes Notes: PHYSICAL EXAMINATION: GENERAL: chronically ill appearing, but in no acute distress. HEAD: Atraumatic, normocephalic. EYES: Pupils equal round and reactive to light, extraocular movements intact, sclera anicteric, conjunctiva are normal. NECK: Normal range of motion, supple without lymphadenopathy LUNGS: CTAB and equal. No wheezes rales or rhonchi. HEART: Regular rate and rhythm without murmurs ABDOMEN: Soft, no tenderness. No guarding, no rebound BACK: no vertebral tenderness, normal ROM, no tenderness to SI joints or coccyx GI/: no CVA tenderness EXTREMITIES: Normal range of motion, no pitting edema. No cyanosis. NEUROLOGICAL: demented, alert and oriented to person and place but not time, Cranial nerves grossly intact. Normal sensory/motor exams. PSYCH: Normal mood, normal affect. SKIN: Warm, Dry, normal turgor, no rashes or lesions noted Course - Vital Signs Vital signs: Temp Pulse Resp BP Pulse Ox 98.3 F 77 18 148/94 H 98 11/08/16 07:20 11/08/16 07:20 11/08/16 07:20 11/08/16 07:20 11/08/16 07:20 Discharge - Discharge Clinical Impression: Fall Qualifiers: Encounter type: initial encounter Qualified Code(s): W19.XXXA - Unspecified fall, initial encounter Condition: Stable Disposition: HOME, SELF-CARE Additional Instructions: Return immediately for any new or worsening symptoms. Follow up with primary care provider, call tomorrow to make followup appointment.
[2016-11-08] MEDS ORDERED: ACETAMINOPHEN 325 MG TABLET PO ONE (07:36)
[2016-11-08] MEDS ORDERED: PHENYTOIN SODIUM EXTENDED 100 MG CAPSULE PO ONE ×2 (10:58→19:00)
[2016-11-08] MEDS ORDERED: TIOTROPIUM BROMIDE DPI 5 CAP/KIT (18 MCG/CAP) IH ONE (10:59)
[2016-11-08] MEDS ORDERED: TAMSULOSIN HCL 0.4 MG CAP.SR.24H PO ONE (10:59)
[2016-11-08] MEDS ORDERED: LORAZEPAM 1 MG TABLET PO ONE (11:00)
[2016-11-08] MEDS ORDERED: ATENOLOL 50 MG TABLET PO ONE (11:00)
[2016-11-08 13:30] VITALS: BP 126/73
== END 2016-11-08 13:35 | disposition home or self-care (01) ==
LOC: ER 07:07
DX: Z04.3 Encounter for examination and observation following other accident (principal); W05.0XXA Fall from non-moving wheelchair, initial encounter; Y93.89 Activity, other specified; Y92.129 Unspecified place in nursing home as the place of occurrence of the external cause; I10 Essential (primary) hypertension; J44.9 Chronic obstructive pulmonary disease, unspecified; E11.9 Type 2 diabetes mellitus without complications; F03.90 Unspecified dementia, unspecified severity, without behavioral disturbance, psychotic disturbance, mood disturbance, and anxiety
CPT/HCPCS: 99284; A9270 ×5; J3490

== ENCOUNTER 2016-11-09 11:38 | Inpatient (IN) | payer MEDICARE, MEDICAID ==
[2016-11-09 12:17] LABS: ABSOLUTE BASOPHILS # (AUTO) 0.1 10^3/uL (0.0-0.2); ABSOLUTE LYMPHOCYTES (AUTO) 3.1 10^3/uL (0.5-4.7); ABSOLUTE MONOCYTES (AUTO) 1.1 10^3/uL (0.1-1.4); ABSOLUTE NEUT (AUTO) 7.1 10^3/uL (1.7-8.2); BASOPHILS % (AUTO) 0.5 % (0-2); EOSINOPHILS % (AUTO) 0.2 % (0-6); HEMATOCRIT 34.3 % (37.9-51.0); HEMOGLOBIN 11.7 g/dL (13.5-17.0); HGB HCT DIFFERENCE 0.8; LYMPHOCYTES % (AUTO) 27.1 % (13-45); MEAN CORPUSCULAR HEMOGLOBIN 34.5 pg (27.0-33.4); MEAN CORPUSCULAR HGB CONC 34.2 g/dL (32.0-36.0); MEAN CORPUSCULAR VOLUME 101 fl (80-97); RED CELL DISTRIBUTION WIDTH 14.1 % (11.5-14.0); SEGMENTED NEUTROPHILS % (AUTO) 62.2 % (42-78); WHITE BLOOD COUNT 11.4 10^3/uL (4.0-10.5)
[2016-11-09 12:18] LABS: VENOUS BLOOD BASE EXCESS 2.9 mmol/L; VENOUS BLOOD HCO3 25.9 mmol/L (20-32); VENOUS BLOOD PCO2 34.8 mmHg (35-63); VENOUS BLOOD PH 7.49 (7.30-7.42)
[2016-11-09 12:30] LABS: ALANINE AMINOTRANSFERASE 31 U/L (21-72); ALBUMIN 3.8 g/dL (3.5-5.0); ALKALINE PHOSPHATASE 75 U/L (38-126); ANION GAP 10 (5-19); ASPARTATE AMINO TRANSFERASE 34 U/L (17-59); BILIRUBIN,DIRECT 0.4 mg/dL (0.0-0.4); BILIRUBIN,TOTAL 0.7 mg/dL (0.2-1.3); BLOOD UREA NITROGEN 14 mg/dL (7-20); CALCIUM 9.3 mg/dL (8.4-10.2); CARBON DIOXIDE 24 mmol/L (22-30); CHLORIDE 95 mmol/L (98-107); CREATININE RESULT 0.59 mg/dL (0.52-1.25); GLUCOSE 116 mg/dL (75-110); SODIUM 128.5 mmol/L (137-145); TOTAL PROTEIN 6.9 g/dL (6.3-8.2)
[2016-11-09] MEDS ORDERED: NORMAL SALINE 1000 ML 1,000 ML IV ONE (13:09)
[2016-11-09] MEDS ORDERED: LORAZEPAM INJ 2 MG/1 ML VIAL IV ONE ×4 (14:12→19:30)
--- NOTE | 2016-11-09 14:26 | ER Document Report ---
ED General <JESSICA JUNIOR - Last Filed: 11/09/16 15:40> - General TRAVEL OUTSIDE OF THE [place] IN LAST 30 DAYS: No <CARLOLANCE ANDREWSN - Last Filed: 11/09/16 18:58> - General Chief Complaint: Fever Stated Complaint: ALTERED MENTAL STATUS Time Seen by Provider: 11/09/16 12:17 Notes: Patient with h/o seizures and previous ETOH abuse is brought to the ED by ambulance for AMS and fever. Pt had a temp of 101.4 in the ambulance. Pt is a poor historian. Pt states that he "just doesn't feel well." We received report that he was confused at times at [place]. Pt states that he hasn't had any drugs or ETOH intake. Pt does have h/o incontinence issues. Pt did deny any sore throat, nasal renetta/discharge, CP, palp, sob, dyspnea, abd pain, n/ v/d. Pt was seen 2 days ago for a seizure and was d/c'd home. He returned soon after his discharge as he fell on his butt. He was discharged without any problems. Nurse reports that his mental status is different than how he was on thursday. His friend and neighbor arrived: Friend states that his mental status is altered. Friend states that he is saying and doing things that he would never do on a normal basis from hitting on the nursing staff, getting in bed with his roommate, and trying to pull of his friend's finger nails. She also states that he had a high etoh level over day which got him admitted along with having seizures. He was discharged from the hospital 6 days ago after 24hrs without a seizure. (THONY MATOS) - Related Data Allergies/Adverse Reactions: No Known Drug Allergies Allergy (Verified 11/08/16 07:34) Home Medications: Current Home Medications Losartan/Hydrochlorothiazide [Hyzaar 100-25 Tablet] 1 tab PO DAILY 11/09/16 [ History] Multivit-Min/FA/Lycopen/Lutein [Centrum Silver Men Tablet] 1 tab PO DAILY [History] Past Medical History - Social History Smoking Status: Unknown if Ever Smoked Family History: Reviewed & Not Pertinent - Past Medical History Cardiac Medical History: Reports: Hx Hypercholesterolemia, Hx Hypertension Pulmonary Medical History: Reports: Hx COPD Neurological Medical History: Reports: Hx Seizures Endocrine Medical History: Reports: Hx Diabetes Mellitus Type 2 Renal/ Medical History: Denies: Hx Peritoneal Dialysis Psychiatric Medical History: Reports: Hx Depression - Immunizations Hx Diphtheria, Pertussis, Tetanus Vaccination: Yes Hx Pneumococcal Vaccination: 05/01/13 <THONY MATOS - Last Filed: 11/09/16 18:58> Review of Systems <JESSICA JUNIOR - Last Filed: 11/09/16 15:40> <THONY MATOS - Last Filed: 11/09/16 18:58> - Review of Systems Notes: REVIEW OF SYSTEMS: (poor historian and stated "no" for reviewed systems). CONSTITUTIONAL : denies chills, or sweats. Denies recent illness. EENT: Denies eye, ear, throat, or mouth pain or symptoms. Denies nasal or sinus congestion or discharge. Denies throat, tongue, or mouth swelling or difficulty swallowing. CARDIOVASCULAR: Denies chest pain. Denies palpitations or racing or irregular heart beat. Denies ankle edema. RESPIRATORY: Denies cough, cold, or chest congestion. Denies shortness of breath, difficulty breathing, or wheezing. GASTROINTESTINAL: Denies abdominal pain or distention. Denies nausea, vomiting , or diarrhea. Denies blood in vomitus, stools, or per rectum. Denies black, tarry stools. Denies constipation. GENITOURINARY: Denies difficulty urinating, painful urination, burning, frequency, blood in urine, or discharge. MUSCULOSKELETAL: Denies back or neck pain or stiffness. Denies joint pain or swelling. SKIN: Denies rash, lesions or sores. NEUROLOGICAL: see hpi ALL OTHER SYSTEMS REVIEWED AND NEGATIVE. Dictation was performed using [employer] voice recognition software (THONY MATOS) Physical Exam <JESSICA JUNIOR - Last Filed: 11/09/16 15:40> <THONY MATOS - Last Filed: 11/09/16 18:58> - Vital signs Vitals: Temp Pulse Resp BP Pulse Ox 98.8 F 78 18 124/92 H 94 11/09/16 11:40 11/09/16 11:40 11/09/16 11:40 11/09/16 11:40 11/09/16 11:40 Notes: PHYSICAL EXAMINATION: GENERAL: Well-appearing, well-nourished and in no acute distress. HEAD: Atraumatic, normocephalic. No long sign EYES: Pupils equal round and reactive to light, extraocular movements intact, sclera anicteric, conjunctiva are normal. No raccoon eyes ENT: EAC clear b/l. TM's intact b/l without erythema, fluid, or perforation. Nares patent and without discharge. oropharynx clear without exudates. No tonsilar hypertrophy or erythema. Moist mucous membranes. No sinus tenderness. No hemotympanum or CSF discharge NECK: Normal range of motion, supple without lymphadenopathy. No nuchal rigidity/meningismus LUNGS: Breath sounds clear to auscultation bilaterally and equal. No wheezes rales or rhonchi. HEART: Regular rate and rhythm without murmurs, rubs, gallops. ABDOMEN: Soft, nontender, nondistended abdomen. No guarding, no rebound. No masses appreciated. Normal bowel sounds present. No CVA tenderness bilaterally. No ecchymosis. Musculoskeletal: FROM to passive/active. Strength 5+/5. Extremities: No cyanosis, clubbing, or edema b/l. Peripheral pulses 2+. Capillary refill less than 3 seconds. NEUROLOGICAL: Cranial nerves grossly intact. normal gait. Normal sensory, motor exams. Speech muffled at times but he can articulate and state sentences in short discussions. PSYCH: confused SKIN: Warm, Dry, normal turgor, no rashes or lesions noted. Patient wanted to grab and pull off the cords and wires that are attached to him. (THONY MATOS) Course - Laboratory Result Diagrams: 11/09/16 12:00 11/09/16 12:00 <JESSICA JUNIOR - Last Filed: 11/09/16 15:40> - Laboratory Result Diagrams: 11/09/16 12:00 11/09/16 12:00 <THONY MATOS - Last Filed: 11/09/16 18:58> - Re-evaluation Re-evalutation: 11/09/16 15:40 I discussed the case with the nurse practitioner. I have seen and examined the patient. The patient is accompanied by his good friend and neighbor (Ladi). The patient does have a long history of alcohol abuse as well as seizures and he presents to the emergency room with a significant alteration in mental status. Patient does appear to have delirium in the ER. He does not have any signs of photophobia or meningismus. I discussed the case with Dr. Jansen who states the patient has had episodes similar to this. The plan will be to admit him to the hospital for IV Ativan, IV thiamine, electrolyte replacement and continuous cardiac monitoring (JESSICA JUNIOR) - Vital Signs Vital signs: Temp Pulse Resp BP Pulse Ox 97.9 F 65 20 132/89 H 100 11/09/16 17:43 11/09/16 17:43 11/09/16 17:43 11/09/16 17:43 11/09/16 17:43 - Laboratory Laboratory results interpreted by me: 11/09/16 11/09/16 11/09/16 12:00 12:00 12:00 WBC 11.4 H RBC 3.40 L Hgb 11.7 L Hct 34.3 L MCV 101 H MCH 34.5 H RDW 14.1 H VBG pH 7.49 H VBG pCO2 34.8 L Sodium 128.5 L Chloride 95 L Glucose 116 H Magnesium Urine Blood Salicylates Acetaminophen 11/09/16 11/09/16 11/09/16 12:00 12:00 14:11 WBC RBC Hgb Hct MCV MCH RDW VBG pH VBG pCO2 Sodium Chloride Glucose Magnesium 1.3 L Urine Blood SMALL H Salicylates < 1.0 L Acetaminophen < 10 L Discharge - Discharge Admitting Provider: Justyna Unit Admitted: IMCU <JESSICA JUNIOR - Last Filed: 11/09/16 15:40> <THONY MATOS - Last Filed: 11/09/16 18:58> - Discharge Clinical Impression: Delirium tremens Condition: Stable Disposition: ADMITTED INPATIENT
--- NOTE | 2016-11-09 14:26 | RADIOLOGY REPORT (SQ) ---
EXAM DESCRIPTION: CHEST SINGLE VIEW COMPLETED DATE/TIME: 11/09/2016 2:17 pm REASON FOR STUDY: AMS COMPARISON: 10/27/2016 EXAM PARAMETERS: NUMBER OF VIEWS: One view. TECHNIQUE: Single frontal radiographic view of the chest acquired. RADIATION DOSE: NA LIMITATIONS: None. FINDINGS: LUNGS AND PLEURA: No new opacities, masses or pneumothorax. No pleural effusion. MEDIASTINUM AND HILAR STRUCTURES: No masses. Contour normal. HEART AND VASCULAR STRUCTURES: Heart stable in size. Normal vasculature. BONES: No acute findings. HARDWARE: None in the chest. OTHER: No other significant finding. IMPRESSION: NO ACUTE CARDIOPULMONARY PROCESS. NO SIGNIFICANT CHANGE FROM PRIOR STUDY. TECHNICAL DOCUMENTATION: JOB ID: [id number]
[2016-11-09 14:55] LABS: ALCOHOL < 10 mg/dL (NONE DETECTED)
[2016-11-09 14:56] LABS: APPEARANCE,URINE CLEAR; BILIRUBIN,URINE NEGATIVE (NEGATIVE); GLUCOSE, URINE NEGATIVE (NEGATIVE); KETONES,URINE NEGATIVE (NEGATIVE); LEUKOCYTE ESTERASE,URINE NEGATIVE (NEGATIVE); NITRITE,URINE NEGATIVE (NEGATIVE); PROTEIN,URINE NEGATIVE (NEGATIVE); URINE SPECIFIC GRAVITY 1.015; UROBILINOGEN,URINE NEGATIVE mg/dL (<2.0)
[2016-11-09 15:06] LABS: URINE BARBITURATES SCREEN UNCONFIRMED POSITIVE; URINE METHADONE SCREEN NEGATIVE; URINE OPIATES LOW NEGATIVE; URINE PHENCYCLIDINE SCREEN NEGATIVE
[2016-11-09] MEDS ORDERED: THIAMINE HCL 100 MG in NORMAL SALINE 50 ML IV ONE (15:38)
[2016-11-09] MEDS ORDERED: MAGNESIUM SULFATE/D5W 100 ML IV ONE ×2 (15:39→16:11)
[2016-11-09] MEDS ORDERED: LORAZEPAM INJ 2 MG/1 ML VIAL ONE (15:39)
[2016-11-09] MEDS ORDERED: THIAMINE HCL 100 MG in NORMAL SALINE 50 ML IV SCH (19:00)
[2016-11-09 19:37] LABS: LIPASE 170.1 U/L (23-300); MAGNESIUM 1.7 mg/dL (1.6-2.3); PHOSPHORUS 4.4 mg/dL (2.5-4.5); PROTHROMBIN TIME 13.5 SEC (11.4-15.4)
[2016-11-09 19:38] LABS: PARTIAL THROMBOPLASTIN TIME 36.4 SEC (23.5-35.8)
[2016-11-09 20:08] LABS: THYROID STIMULATING HORMONE 1.34 uIU/mL (0.47-4.68)
[2016-11-09] MEDS: POTASSI CL 20 MEQ/NS 1L 1,000 ML IV PRN (20:35)
[2016-11-09] MEDS ORDERED: MAGNESIUM SULFATE/D5W 1 GM/100 ML RTUPB IV ONE (21:42)
[2016-11-10 01:51] LABS: ARTERIAL BLOOD BASE EXCESS -0.1 mmol/L; ARTERIAL BLOOD O2 SATURATION 96.9 % (94-98)
[2016-11-10] MEDS: LORAZEPAM INJ 2 MG/1 ML VIAL IV SCH ×3 (02:05→18:06)
[2016-11-10] MEDS: POTASSI CL 20 MEQ/NS 1L 1,000 ML IV PRN ×2 (06:37→16:41)
[2016-11-10] MEDS: ENOXAPARIN SODIUM INJ 40 MG/0.4 ML DISP.SYRIN SUBCUT SCH (08:23)
[2016-11-10 09:12] LABS: ABSOLUTE BASOPHILS # (AUTO) 0.1 10^3/uL (0.0-0.2); ABSOLUTE EOSINOPHILS # (AUTO) 0.1 10^3/uL (0.0-0.6); ABSOLUTE LYMPHOCYTES (AUTO) 2.4 10^3/uL (0.5-4.7); ABSOLUTE MONOCYTES (AUTO) 0.8 10^3/uL (0.1-1.4); ABSOLUTE NEUT (AUTO) 2.7 10^3/uL (1.7-8.2); BASOPHILS % (AUTO) 1.2 % (0-2); EOSINOPHILS % (AUTO) 2.2 % (0-6); HEMOGLOBIN 13.1 g/dL (13.5-17.0); HGB HCT DIFFERENCE 1.3; LYMPHOCYTES % (AUTO) 39.2 % (13-45); MEAN CORPUSCULAR HEMOGLOBIN 35.1 pg (27.0-33.4); MEAN CORPUSCULAR HGB CONC 34.4 g/dL (32.0-36.0); MEAN CORPUSCULAR VOLUME 102 fl (80-97); MONOCYTES % (AUTO) 12.5 % (3-13); RED BLOOD COUNT 3.72 10^6/uL (4.35-5.55); RED CELL DISTRIBUTION WIDTH 13.8 % (11.5-14.0); SEGMENTED NEUTROPHILS % (AUTO) 44.9 % (42-78); WHITE BLOOD COUNT 6.1 10^3/uL (4.0-10.5)
[2016-11-10 09:25] LABS: ALANINE AMINOTRANSFERASE 29 U/L (21-72); ALBUMIN 3.6 g/dL (3.5-5.0); ALKALINE PHOSPHATASE 81 U/L (38-126); ANION GAP 12 (5-19); ASPARTATE AMINO TRANSFERASE 25 U/L (17-59); BILIRUBIN,DIRECT 0.5 mg/dL (0.0-0.4); BILIRUBIN,TOTAL 0.6 mg/dL (0.2-1.3); BLOOD UREA NITROGEN 8 mg/dL (7-20); CALCIUM 8.7 mg/dL (8.4-10.2); CARBON DIOXIDE 24 mmol/L (22-30); CHLORIDE 101 mmol/L (98-107); CHOLESTEROL 238.34 mg/dL (0-200); CREATINE KINASE 70 U/L (55-170); Direct HDL 59 mg/dL (>40); GLUCOSE 88 mg/dL (75-110); POTASSIUM 3.8 mmol/L (3.6-5.0); SODIUM 136.6 mmol/L (137-145); TOTAL PROTEIN 6.6 g/dL (6.3-8.2); TRIGLYCERIDES 123 mg/dL (<150)
[2016-11-10 09:36] LABS: DIRECT LDL 145 mg/dL (<100)
[2016-11-10] MEDS: THIAMINE HCL 500 MG in NORMAL SALINE 50 ML IV SCH ×2 (10:46→18:07)
[2016-11-10] MEDS: AMPICILLIN SODIUM/SULBACTAM NA 3 GM in NORMAL SALINE 100 ML IV SCH ×2 (14:38→20:31)
--- NOTE | 2016-11-10 19:29 | PDOC H&P ---
History of Present Illness Admission Date/PCP: 11/09/16 18:52 SANTIAGO SEGUNDO MD History of Present Illness: MATEO ROCK is a 66 year old male, he has a history of alcoholism, he was recently admitted in this hospital on October 27, 2016 presented with alcohol intoxication associated with delirium and electrolyte derangement including hypokalemia, hypomagnesemia and hyponatremia. He was treated and was transferred to long-term on November 04 2016. I was called from the long-term that patient was confused and acting inappropriately. He has a history of wernicke encephalopathy. He was seen and evaluated in the emergency room, he was very agitated,he was pulling on IV lines and hospital admission was advised Past Medical History Cardiac Medical History: Reports: Hyperlipidema, Hypertension Pulmonary Medical History: Reports: Chronic Obstructive Pulmonary Disease (COPD) Neurological Medical History: Reports: Seizures Endocrine Medical History: Reports: Diabetes Mellitus Type 2 Psychiatric Medical History: Reports: Alcohol Dependency, Depression Social History Smoking Status: Current Every Day Smoker Cigarettes Packs Per Day: 1 Number of Years Smokin Last Time Smoked: 10/27/16 Frequency of Alcohol Use: Heavy Hx Recreational Drug Use: Yes Drugs: Marijuana Hx Prescription Drug Abuse: No - Advance Directive Resuscitation Status: Full Code Family History Family History: Reviewed & Not Pertinent Parental Family History Reviewed: Yes Children Family History Reviewed: Yes Sibling(s) Family History Reviewed.: Yes Medication/Allergy Home Medications: Alendronate Sodium 70 mg PO WE 10/27/16 Atenolol 100 mg PO DAILY 10/27/16 Cholecalciferol (Vitamin D3) [Vitamin D3] 2,000 unit PO DAILY 10/27/16 Duloxetine HCl 60 mg PO DAILY 10/27/16 Lorazepam 1 mg PO Q12HP PRN 10/27/16 Metformin HCl [Metformin HCl ER] 500 mg PO WSUPPER 10/27/16 Phenytoin Sodium Extended 300 mg PO DAILY 10/27/16 Potassium Chloride 10 meq PO DAILY 10/27/16 Tamsulosin HCl [Flomax 0.4 mg Cap.sr] 0.4 mg PO Q12 10/27/16 Thiamine HCl [Vitamin B-1] 100 mg PO DAILY 10/27/16 Tiotropium [place] [Spiriva Handihaler 5 Cap/Kit (18 Mcg/Cap)] 1 cap IH DAILY Vitamin E 400 unit PO DAILY 10/27/16 Losartan/Hydrochlorothiazide [Hyzaar 100-25 Tablet] 1 tab PO DAILY 11/09/16 Multivit-Min/FA/Lycopen/Lutein [Centrum Silver Men Tablet] 1 tab PO DAILY Allergies/Adverse Reactions: No Known Drug Allergies Allergy (Verified 11/08/16 07:34) Review of Systems ROS unobtainable: Due to mental status Physical Exam Vital Signs: Temp Pulse Resp BP Pulse Ox 97.9 F 99 20 129/87 H 94 11/10/16 16:10 11/10/16 16:10 11/10/16 16:10 11/10/16 16:10 11/10/16 16:10 Intake & Output 11/09/16 11/10/16 11/11/16 06:59 06:59 06:59 Intake Total 1250 0 Output Total 200 Balance 1050 0 Weight 78.6 kg General appearance: PRESENT: mild distress Head exam: PRESENT: atraumatic, normocephalic Eye exam: PRESENT: PERRLA Neck exam: PRESENT: full ROM Respiratory exam: PRESENT: clear to auscultation vinnie Cardiovascular exam: PRESENT: RRR, +S1, +S2 Vascular exam: PRESENT: normal capillary refill GI/Abdominal exam: PRESENT: normal bowel sounds, soft Rectal exam: PRESENT: deferred Neurological exam: PRESENT: alert, altered. ABSENT: motor sensory deficit Skin exam: PRESENT: dry, intact, warm Results Laboratory Results: 11/10/16 08:27 11/10/16 08:27 11/09/16 11/09/16 11/09/16 19:15 19:15 19:15 WBC RBC Hgb Hct MCV MCH MCHC RDW Plt Count Seg Neutrophils % Lymphocytes % Monocytes % Eosinophils % Basophils % Absolute Neutrophils Absolute Lymphocytes Absolute Monocytes Absolute Eosinophils Absolute Basophils Carbonic Acid HCO3/H2CO3 Ratio ABG pH ABG pCO2 ABG pO2 ABG HCO3 ABG O2 Saturation ABG Base Excess FiO2 Sodium Potassium Chloride Carbon Dioxide Anion Gap BUN Creatinine Est GFR ( Amer) Est GFR (Non-Af Amer) Glucose Calcium Phosphorus 4.4 Magnesium 1.7 Total Bilirubin AST ALT Alkaline Phosphatase Ammonia < 8.7 L Total Protein Albumin Triglycerides Cholesterol LDL Cholesterol Direct VLDL Cholesterol HDL Cholesterol Amylase 81 Lipase 170.1 TSH 1.34 Free T4 1.28 11/10/16 11/10/1617 01:35 08:27 08:27 WBC 6.1 RBC 3.72 L Hgb 13.1 L Hct 38.0 MCV 102 H MCH 35.1 H MCHC 34.4 RDW 13.8 Plt Count 420 Seg Neutrophils % 44.9 Lymphocytes % 39.2 Monocytes % 12.5 Eosinophils % 2.2 Basophils % 1.2 Absolute Neutrophils 2.7 Absolute Lymphocytes 2.4 Absolute Monocytes 0.8 Absolute Eosinophils 0.1 Absolute Basophils 0.1 Carbonic Acid 1.03 L HCO3/H2CO3 Ratio 22:1 ABG pH 7.45 ABG pCO2 34.1 L ABG pO2 85.2 ABG HCO3 23.3 ABG O2 Saturation 96.9 ABG Base Excess -0.1 FiO2 ROOM AIR Sodium 136.6 L Potassium 3.8 Chloride 101 Carbon Dioxide 24 Anion Gap 12 BUN 8 Creatinine 0.60 Est GFR ( Amer) > 60 Est GFR (Non-Af Amer) > 60 Glucose 88 Calcium 8.7 Phosphorus Magnesium Total Bilirubin 0.6 AST 25 ALT 29 Alkaline Phosphatase 81 Ammonia Total Protein 6.6 Albumin 3.6 Triglycerides 123 Cholesterol 238.34 H LDL Cholesterol Direct 145 H VLDL Cholesterol 25.0 HDL Cholesterol 59 Amylase Lipase TSH Free T4 11/09/16 11/09/16 11/10/16 19:15 19:15 01:14 Creatine Kinase 134 98 Troponin I 0.013 11/10/16 11/10/16 11/10/16 01:14 08:27 08:27 Creatine Kinase 70 Troponin I < 0.012 < 0.012 Impressions: Chest X-Ray 11/09/16 12:59 IMPRESSION: NO ACUTE CARDIOPULMONARY PROCESS. NO SIGNIFICANT CHANGE FROM PRIOR STUDY. Assessment & Plan - Diagnosis (1) Wernicke encephalopathy Is this a current diagnosis for this admission?: YesPlan: Patient has a history of wernicke encephalopathy, He be treated with high dose thiamine 500mg IV Q 8 hours for 2 days then 250mg IV daily for 5 days and also lorazepam
--- NOTE | 2016-11-10 19:32 | PDOC PROGRESS REPORT ---
Subjective Progress Note for:: 11/10/16 Subjective:: Patient was seen by the bedside,he is more oriented today to time ,place and person . He was empirically started on IV antibiotic Physical Exam Vital Signs: Temp Pulse Resp BP Pulse Ox 97.9 F 99 20 129/87 H 94 11/10/16 16:10 11/10/16 16:10 11/10/16 16:10 11/10/16 16:10 11/10/16 16:10 Intake & Output 11/09/16 11/10/16 11/11/16 06:59 06:59 06:59 Intake Total 1250 0 Output Total 200 Balance 1050 0 Weight 78.6 kg General appearance: PRESENT: no acute distress Eye exam: PRESENT: PERRLA Respiratory exam: PRESENT: clear to auscultation vinnie Cardiovascular exam: PRESENT: +S1, +S2 GI/Abdominal exam: PRESENT: soft Neurological exam: PRESENT: alert, CN II-XII grossly intact Results Laboratory Results: 11/10/16 08:27 11/10/16 08:27 11/09/16 11/09/16 11/09/16 19:15 19:15 19:15 WBC RBC Hgb Hct MCV MCH MCHC RDW Plt Count Seg Neutrophils % Lymphocytes % Monocytes % Eosinophils % Basophils % Absolute Neutrophils Absolute Lymphocytes Absolute Monocytes Absolute Eosinophils Absolute Basophils Carbonic Acid HCO3/H2CO3 Ratio ABG pH ABG pCO2 ABG pO2 ABG HCO3 ABG O2 Saturation ABG Base Excess FiO2 Sodium Potassium Chloride Carbon Dioxide Anion Gap BUN Creatinine Est GFR ( Amer) Est GFR (Non-Af Amer) Glucose Calcium Phosphorus 4.4 Magnesium 1.7 Total Bilirubin AST ALT Alkaline Phosphatase Ammonia < 8.7 L Total Protein Albumin Triglycerides Cholesterol LDL Cholesterol Direct VLDL Cholesterol HDL Cholesterol Amylase 81 Lipase 170.1 TSH 1.34 Free T4 1.28 11/10/16 11/10/16 11/10/16 01:35 08:27 08:27 WBC 6.1 RBC 3.72 L Hgb 13.1 L Hct 38.0 MCV 102 H MCH 35.1 H MCHC 34.4 RDW 13.8 Plt Count 420 Seg Neutrophils % 44.9 Lymphocytes % 39.2 Monocytes % 12.5 Eosinophils % 2.2 Basophils % 1.2 Absolute Neutrophils 2.7 Absolute Lymphocytes 2.4 Absolute Monocytes 0.8 Absolute Eosinophils 0.1 Absolute Basophils 0.1 Carbonic Acid 1.03 L HCO3/H2CO3 Ratio 22:1 ABG pH 7.45 ABG pCO2 34.1 L ABG pO2 85.2 ABG HCO3 23.3 ABG O2 Saturation 96.9 ABG Base Excess -0.1 FiO2 ROOM AIR Sodium 136.6 L Potassium 3.8 Chloride 101 Carbon Dioxide 24 Anion Gap 12 BUN 8 Creatinine 0.60 Est GFR ( Amer) > 60 Est GFR (Non-Af Amer) > 60 Glucose 88 Calcium 8.7 Phosphorus Magnesium Total Bilirubin 0.6 AST 25 ALT 29 Alkaline Phosphatase 81 Ammonia Total Protein 6.6 Albumin 3.6 Triglycerides 123 Cholesterol 238.34 H LDL Cholesterol Direct 145 H VLDL Cholesterol 25.0 HDL Cholesterol 59 Amylase Lipase TSH Free T4 11/09/16 11/09/16 11/10/16 19:15 19:15 01:14 Creatine Kinase 134 98 Troponin I 0.013 11/10/16 11/10/16 11/10/16 01:14 08:27 08:27 Creatine Kinase 70 Troponin I < 0.012 < 0.012 Impressions: Chest X-Ray 11/09/16 12:59 IMPRESSION: NO ACUTE CARDIOPULMONARY PROCESS. NO SIGNIFICANT CHANGE FROM PRIOR STUDY. Assessment & Plan - Diagnosis (1) Wernicke encephalopathy Is this a current diagnosis for this admission?: YesPlan: Patient has a history of wernicke encephalopathy, He be treated with high dose thiamine 500mg IV Q 8 hours for 2 days then 250mg IV daily for 5 days and also lorazepam (2) Type 2 diabetes mellitus Qualifiers: Diabetes mellitus complication status: with neurologic complications Diabetes mellitus complication detail: with polyneuropathy Diabetes mellitus intermediate teacher insulin use: with intermediate teacher use Qualified Code(s): E11.42 - Type 2 diabetes mellitus with diabetic polyneuropathy; Z79.4 - custodial (current) use of insulin Is this a current diagnosis for this admission?: Yes
[2016-11-11] MEDS: LORAZEPAM INJ 2 MG/1 ML VIAL IV SCH ×3 (01:12→18:13)
[2016-11-11] MEDS: THIAMINE HCL 500 MG in NORMAL SALINE 50 ML IV SCH ×3 (01:12→18:13)
[2016-11-11] MEDS: AMPICILLIN SODIUM/SULBACTAM NA 3 GM in NORMAL SALINE 100 ML IV SCH ×4 (02:07→22:23)
[2016-11-11] MEDS: POTASSI CL 20 MEQ/NS 1L 1,000 ML IV PRN ×2 (04:04→15:06)
[2016-11-11 05:31] LABS: ABSOLUTE BASOPHILS # (AUTO) 0.1 10^3/uL (0.0-0.2); ABSOLUTE EOSINOPHILS # (AUTO) 0.2 10^3/uL (0.0-0.6); ABSOLUTE LYMPHOCYTES (AUTO) 1.9 10^3/uL (0.5-4.7); ABSOLUTE MONOCYTES (AUTO) 0.9 10^3/uL (0.1-1.4); ABSOLUTE NEUT (AUTO) 4.6 10^3/uL (1.7-8.2); BASOPHILS % (AUTO) 0.9 % (0-2); EOSINOPHILS % (AUTO) 3.2 % (0-6); HEMATOCRIT 34.5 % (37.9-51.0); HEMOGLOBIN 11.7 g/dL (13.5-17.0); HGB HCT DIFFERENCE 0.6; LYMPHOCYTES % (AUTO) 24.5 % (13-45); MEAN CORPUSCULAR HEMOGLOBIN 34.7 pg (27.0-33.4); MEAN CORPUSCULAR HGB CONC 33.9 g/dL (32.0-36.0); MEAN CORPUSCULAR VOLUME 102 fl (80-97); MONOCYTES % (AUTO) 11.8 % (3-13); RED BLOOD COUNT 3.37 10^6/uL (4.35-5.55); RED CELL DISTRIBUTION WIDTH 13.8 % (11.5-14.0); SEGMENTED NEUTROPHILS % (AUTO) 59.6 % (42-78); WHITE BLOOD COUNT 7.7 10^3/uL (4.0-10.5)
[2016-11-11] MEDS: ENOXAPARIN SODIUM INJ 40 MG/0.4 ML DISP.SYRIN SUBCUT SCH (08:44)
--- NOTE | 2016-11-11 19:21 | PDOC PROGRESS REPORT ---
Subjective Progress Note for:: 11/11/16 Subjective:: Patient was seen by the bedside, it seems to be responding very well to intravenous thiamine. Physical Exam Vital Signs: Temp Pulse Resp BP Pulse Ox 98.0 F 85 20 140/90 H 98 11/11/16 11:32 11/11/16 11:32 11/11/16 11:32 11/11/16 11:32 11/11/16 11:32 Intake & Output 11/10/16 11/11/16 11/12/16 06:59 06:59 06:59 Intake Total 1250 2927 637 Output Total 200 635 Balance 1050 2927 2 Weight 78.6 kg 78.4 kg General appearance: PRESENT: no acute distress Eye exam: PRESENT: PERRLA Respiratory exam: PRESENT: clear to auscultation vinnie Cardiovascular exam: PRESENT: +S1, +S2 GI/Abdominal exam: PRESENT: soft Neurological exam: PRESENT: alert, CN II-XII grossly intact Results Laboratory Results: 11/11/16 04:49 11/10/16 08:27 11/11/16 04:49 WBC 7.7 RBC 3.37 L Hgb 11.7 L Hct 34.5 L MCV 102 H MCH 34.7 H MCHC 33.9 RDW 13.8 Plt Count 377 Seg Neutrophils % 59.6 Lymphocytes % 24.5 Monocytes % 11.8 Eosinophils % 3.2 Basophils % 0.9 Absolute Neutrophils 4.6 Absolute Lymphocytes 1.9 Absolute Monocytes 0.9 Absolute Eosinophils 0.2 Absolute Basophils 0.1 11/09/16 11/09/16 11/10/16 19:15 19:15 01:14 Creatine Kinase 134 98 Troponin I 0.013 11/10/16 11/10/16 11/10/16 01:14 08:27 08:27 Creatine Kinase 70 Troponin I < 0.012 < 0.012 Impressions: Chest X-Ray 11/09/16 12:59 IMPRESSION: NO ACUTE CARDIOPULMONARY PROCESS. NO SIGNIFICANT CHANGE FROM PRIOR STUDY. 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
[2016-11-12] MEDS: LORAZEPAM INJ 2 MG/1 ML VIAL IV SCH ×3 (01:24→18:56)
[2016-11-12] MEDS: THIAMINE HCL 500 MG in NORMAL SALINE 50 ML IV SCH (01:24)
[2016-11-12] MEDS: AMPICILLIN SODIUM/SULBACTAM NA 3 GM in NORMAL SALINE 100 ML IV SCH ×4 (03:38→20:26)
[2016-11-12] MEDS: POTASSI CL 20 MEQ/NS 1L 1,000 ML IV PRN ×2 (03:40→18:56)
[2016-11-12 04:57] LABS: ABSOLUTE BASOPHILS # (AUTO) 0.1 10^3/uL (0.0-0.2); ABSOLUTE EOSINOPHILS # (AUTO) 0.3 10^3/uL (0.0-0.6); ABSOLUTE LYMPHOCYTES (AUTO) 2.1 10^3/uL (0.5-4.7); ABSOLUTE MONOCYTES (AUTO) 0.9 10^3/uL (0.1-1.4); ABSOLUTE NEUT (AUTO) 4.5 10^3/uL (1.7-8.2); EOSINOPHILS % (AUTO) 4.2 % (0-6); HEMATOCRIT 32.7 % (37.9-51.0); HEMOGLOBIN 11.1 g/dL (13.5-17.0); HGB HCT DIFFERENCE 0.6; LYMPHOCYTES % (AUTO) 26.3 % (13-45); MEAN CORPUSCULAR HEMOGLOBIN 34.7 pg (27.0-33.4); MEAN CORPUSCULAR HGB CONC 34.1 g/dL (32.0-36.0); MEAN CORPUSCULAR VOLUME 102 fl (80-97); RED BLOOD COUNT 3.21 10^6/uL (4.35-5.55); RED CELL DISTRIBUTION WIDTH 13.8 % (11.5-14.0); SEGMENTED NEUTROPHILS % (AUTO) 57.5 % (42-78); WHITE BLOOD COUNT 7.8 10^3/uL (4.0-10.5)
[2016-11-12] MEDS: ENOXAPARIN SODIUM INJ 40 MG/0.4 ML DISP.SYRIN SUBCUT SCH (10:13)
[2016-11-12] MEDS: THIAMINE HCL 250 MG in NORMAL SALINE 50 ML IV SCH (10:14)
--- NOTE | 2016-11-12 17:07 | PDOC PROGRESS REPORT ---
Subjective Progress Note for:: 11/12/16 Subjective:: He was seen by the bedside, he is doing quite well on the intravenous thiamine, he had intravenous thiamine 500 MG every 8 for 2 days, and he will now require 250mg IV daily for 5 days. he will be downgraded to floor Physical Exam Vital Signs: Temp Pulse Resp BP Pulse Ox 97.6 F 93 20 138/98 H 99 11/12/16 11:28 11/12/16 14:00 11/12/16 11:28 11/12/16 11:28 11/12/16 11:28 Intake & Output 11/11/16 11/12/16 11/13/16 06:59 06:59 06:59 Intake Total 2927 3599 478 Output Total 0269 500 Balance 2922 1614 -22 Weight 78.4 kg 81.3 kg General appearance: PRESENT: no acute distress Eye exam: PRESENT: PERRLA Respiratory exam: PRESENT: clear to auscultation vinnie Cardiovascular exam: PRESENT: +S1, +S2 GI/Abdominal exam: PRESENT: soft Rectal exam: PRESENT: deferred Neurological exam: PRESENT: alert, CN II-XII grossly intact Results Laboratory Results: 11/12/16 04:40 11/10/16 08:27 11/12/16 04:40 WBC 7.8 RBC 3.21 L Hgb 11.1 L Hct 32.7 L MCV 102 H MCH 34.7 H MCHC 34.1 RDW 13.8 Plt Count 370 Seg Neutrophils % 57.5 Lymphocytes % 26.3 Monocytes % 11.0 Eosinophils % 4.2 Basophils % 1.0 Absolute Neutrophils 4.5 Absolute Lymphocytes 2.1 Absolute Monocytes 0.9 Absolute Eosinophils 0.3 Absolute Basophils 0.1 11/09/16 11/09/16 11/10/16 19:15 19:15 01:14 Creatine Kinase 134 98 Troponin I 0.013 11/10/16 11/10/16 11/10/16 01:14 08:27 08:27 Creatine Kinase 70 Troponin I < 0.012 < 0.012 Impressions: Chest X-Ray 11/09/16 12:59 IMPRESSION: NO ACUTE CARDIOPULMONARY PROCESS. NO SIGNIFICANT CHANGE FROM PRIOR STUDY. 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
[2016-11-13] MEDS: LORAZEPAM INJ 2 MG/1 ML VIAL IV SCH ×3 (03:50→17:20)
[2016-11-13] MEDS: AMPICILLIN SODIUM/SULBACTAM NA 3 GM in NORMAL SALINE 100 ML IV SCH ×4 (04:16→21:57)
[2016-11-13] MEDS: ENOXAPARIN SODIUM INJ 40 MG/0.4 ML DISP.SYRIN SUBCUT SCH (10:48)
[2016-11-13] MEDS: THIAMINE HCL 250 MG in NORMAL SALINE 50 ML IV SCH (10:48)
[2016-11-13] MEDS: POTASSI CL 20 MEQ/NS 1L 1,000 ML IV PRN (14:28)
--- NOTE | 2016-11-13 21:08 | PDOC PROGRESS REPORT ---
Subjective Progress Note for:: 11/13/16 Subjective:: seen by the bedside Physical Exam Vital Signs: Temp Pulse Resp BP Pulse Ox 97.8 F 95 17 151/95 H 94 11/13/16 15:20 11/13/16 15:20 11/13/16 15:20 11/13/16 15:20 11/13/16 15:20 Intake & Output 11/12/16 11/13/16 11/14/16 06:59 06:59 06:59 Intake Total 3599 3141 1588 Output Total 4408 7478 925 Balance 1614 -384 663 Weight 81.3 kg 81.5 kg General appearance: PRESENT: no acute distress Head exam: PRESENT: atraumatic, normocephalic Eye exam: PRESENT: conjunctiva pink, EOMI, PERRLA Ear exam: PRESENT: normal external ear exam Mouth exam: PRESENT: moist, tongue midline Neck exam: PRESENT: full ROM Cardiovascular exam: PRESENT: RRR, +S1, +S2 Pulses: PRESENT: normal dorsalis pedis pul, +2 pedal pulses bilateral Vascular exam: PRESENT: normal capillary refill GI/Abdominal exam: PRESENT: normal bowel sounds, soft Rectal exam: PRESENT: deferred Neurological exam: PRESENT: alert. ABSENT: motor sensory deficit Psychiatric exam: ABSENT: homicidal ideation, suicidal ideation Skin exam: PRESENT: dry, intact, warm. ABSENT: cyanosis, rash Results Laboratory Results: 11/12/16 04:40 11/10/16 08:27 11/09/16 11/09/16 11/10/16 19:15 19:15 01:14 Creatine Kinase 134 98 Troponin I 0.013 11/10/16 11/10/16 11/10/16 01:14 08:27 08:27 Creatine Kinase 70 Troponin I < 0.012 < 0.012 Impressions: Chest X-Ray 11/09/16 12:59 IMPRESSION: NO ACUTE CARDIOPULMONARY PROCESS. NO SIGNIFICANT CHANGE FROM PRIOR STUDY. 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
[2016-11-14] MEDS: LORAZEPAM INJ 2 MG/1 ML VIAL IV SCH ×3 (02:18→17:14)
[2016-11-14] MEDS: AMPICILLIN SODIUM/SULBACTAM NA 3 GM in NORMAL SALINE 100 ML IV SCH ×4 (02:18→21:55)
[2016-11-14] MEDS: POTASSI CL 20 MEQ/NS 1L 1,000 ML IV PRN ×2 (04:58→17:17)
[2016-11-14] MEDS: ENOXAPARIN SODIUM INJ 40 MG/0.4 ML DISP.SYRIN SUBCUT SCH (09:11)
[2016-11-14] MEDS: THIAMINE HCL 250 MG in NORMAL SALINE 50 ML IV SCH (11:15)
--- NOTE | 2016-11-14 21:00 | PDOC PROGRESS REPORT ---
Subjective Progress Note for:: 11/14/16 Subjective:: Patient was seen by the bedside to continue intravenous thiamine for the next few days before his discharge home Physical Exam Vital Signs: Temp Pulse Resp BP Pulse Ox 98.2 F 99 16 164/94 H 98 11/14/16 20:00 11/14/16 20:00 11/14/16 20:00 11/14/16 20:00 11/14/16 20:00 Intake & Output 11/13/16 11/14/16 11/15/16 06:59 06:59 06:59 Intake Total 3141 2088 1253 Output Total 3525 2025 500 Balance -384 63 753 Weight 81.5 kg 81.6 kg General appearance: PRESENT: no acute distress Eye exam: PRESENT: PERRLA Cardiovascular exam: PRESENT: +S1, +S2 GI/Abdominal exam: PRESENT: soft Neurological exam: PRESENT: alert, CN II-XII grossly intact Results Laboratory Results: 11/12/16 04:40 11/10/16 08:27 11/09/16 11/09/16 11/10/16 19:15 19:15 01:14 Creatine Kinase 134 98 Troponin I 0.013 11/10/16 11/10/16 11/10/16 01:14 08:27 08:27 Creatine Kinase 70 Troponin I < 0.012 < 0.012 Impressions: Chest X-Ray 11/09/16 12:59 IMPRESSION: NO ACUTE CARDIOPULMONARY PROCESS. NO SIGNIFICANT CHANGE FROM PRIOR STUDY. Assessment & Plan - Diagnosis (1) Wernicke encephalopathy Is this a current diagnosis for this admission?: Yes (2) Type 2 diabetes mellitus Qualifiers: Diabetes mellitus complication status: with neurologic complications Diabetes mellitus complication detail: with polyneuropathy Diabetes mellitus long term care phlebotomist insulin use: with long term care phlebotomist use Qualified Code(s): E11.42 - Type 2 diabetes mellitus with diabetic polyneuropathy; Z79.4 - rodent exterminator (current) use of insulin Is this a current diagnosis for this admission?: Yes (3) Seizure disorder Is this a current diagnosis for this admission?: Yes - Plan Summary Plan Summary: Continue present treatment
[2016-11-15] MEDS: LORAZEPAM INJ 2 MG/1 ML VIAL IV SCH ×3 (02:50→17:13)
[2016-11-15] MEDS: AMPICILLIN SODIUM/SULBACTAM NA 3 GM in NORMAL SALINE 100 ML IV SCH ×4 (02:50→20:46)
[2016-11-15] MEDS: POTASSI CL 20 MEQ/NS 1L 1,000 ML IV PRN ×2 (07:21→20:46)
[2016-11-15] MEDS: ENOXAPARIN SODIUM INJ 40 MG/0.4 ML DISP.SYRIN SUBCUT SCH (09:31)
[2016-11-15] MEDS: THIAMINE HCL 250 MG in NORMAL SALINE 50 ML IV SCH (09:32)
--- NOTE | 2016-11-15 12:02 | PDOC PROGRESS REPORT ---
Subjective Progress Note for:: 11/15/16 Subjective:: The patient was admitted because of the following wernicks encephalopathy and currently IV thiamine and patient's currently doing well Patients denied any chest pain denied any shortness of the breath Physical Exam Vital Signs: Temp Pulse Resp BP Pulse Ox 97.7 F 101 H 19 148/97 H 100 11/15/16 11:33 11/15/16 11:33 11/15/16 11:33 11/15/16 11:33 11/15/16 11:33 Intake & Output 11/14/16 11/15/16 11/16/16 06:59 06:59 06:59 Intake Total 2087 3811 360 Output Total 2024 2150 700 Balance 63 1661 -340 Weight 81.6 kg 82.8 kg General appearance: PRESENT: no acute distress, well-developed, well-nourished Head exam: PRESENT: atraumatic, normocephalic Eye exam: PRESENT: conjunctiva pink, EOMI, PERRLA. ABSENT: scleral icterus Ear exam: PRESENT: normal external ear exam Mouth exam: PRESENT: moist, tongue midline Neck exam: PRESENT: full ROM. ABSENT: carotid bruit, JVD, lymphadenopathy, thyromegaly Respiratory exam: PRESENT: clear to auscultation vinnie Cardiovascular exam: PRESENT: RRR. ABSENT: diastolic murmur, rubs, systolic murmur Pulses: PRESENT: normal dorsalis pedis pul, +2 pedal pulses bilateral Vascular exam: PRESENT: normal capillary refill GI/Abdominal exam: PRESENT: normal bowel sounds, soft. ABSENT: distended, guarding, mass, organolmegaly, rebound, tenderness Rectal exam: PRESENT: deferred Neurological exam: PRESENT: alert, awake, oriented to person, oriented to place , oriented to time, oriented to situation, CN II-XII grossly intact. ABSENT: motor sensory deficit Psychiatric exam: PRESENT: appropriate affect, normal mood. ABSENT: homicidal ideation, suicidal ideation Skin exam: PRESENT: dry, intact, warm. ABSENT: cyanosis, rash Results Laboratory Results: 11/12/16 04:40 11/10/16 08:27 11/09/16 11/09/16 11/10/16 19:15 19:15 01:14 Creatine Kinase 134 98 Troponin I 0.013 11/10/16 11/10/16 11/10/16 01:14 08:27 08:27 Creatine Kinase 70 Troponin I < 0.012 < 0.012 Impressions: Chest X-Ray 11/09/16 12:59 IMPRESSION: NO ACUTE CARDIOPULMONARY PROCESS. NO SIGNIFICANT CHANGE FROM PRIOR STUDY. Assessment & Plan - Diagnosis (1) Wernicke encephalopathy Is this a current diagnosis for this admission?: YesPlan: Continues to IV thiamine and continues to current other medications (2) Fall Qualifiers: Encounter type: initial encounter Qualified Code(s): W19.XXXA - Unspecified fall, initial encounter (3) Weakness Is this a current diagnosis for this admission?: YesPlan: Get the physical therapy evaluations (4) Type 2 diabetes mellitus Qualifiers: Diabetes mellitus complication status: with neurologic complications Diabetes mellitus complication detail: with polyneuropathy Diabetes mellitus extermination supervisor insulin use: with long-term use Qualified Code(s): E11.42 - Type 2 diabetes mellitus with diabetic polyneuropathy; Z79.4 - equipment operator intermodal yard (current) use of insulin Is this a current diagnosis for this admission?: YesPlan: Continue sliding scale - Time Time Spent with patient: 15-24 minutes Medications reviewed and adjusted accordingly: Yes Anticipated discharge: SNF Within: Other - Inpatient Certification Medical Necessity: Need Close Monitoring Due to Risk of Patient Decompensation Post Hospital Care: D/C Hand Straightener Documentation - Plan Summary Plan Summary: Continues current medications
[2016-11-15] MEDS ORDERED: DEXTROSE 40% GEL 15 GM TUBE X 2 PO PRN (19:35)
[2016-11-15] MEDS ORDERED: GLUCAGON,HUMAN RECOMB 1 MG INJ IM PRN (19:35)
[2016-11-15] MEDS ORDERED: DEXTROSE 50%-WATER SYRINGE 12.5 GM/25 ML DOSE IV PRN (19:35)
[2016-11-15] MEDS ORDERED: DEXTROSE 50%-WATER SYRINGE 25 GM/50 ML DOSE IV PRN (19:35)
[2016-11-15] MEDS ORDERED: DEXTROSE 40% GEL 15 GM TUBE PO PRN (19:35)
[2016-11-15] MEDS ORDERED: INSULIN REG, HUMAN 100 UNIT/ML 3 ML VIAL (PYX) SUBCUT PRN (19:35)
[2016-11-15] MEDS: ATENOLOL 50 MG TABLET PO SCH (22:50)
[2016-11-15] MEDS: TAMSULOSIN HCL 0.4 MG CAP.SR.24H PO SCH (22:50)
[2016-11-16] MEDS: LORAZEPAM INJ 2 MG/1 ML VIAL IV SCH ×3 (01:57→17:55)
[2016-11-16] MEDS: AMPICILLIN SODIUM/SULBACTAM NA 3 GM in NORMAL SALINE 100 ML IV SCH ×4 (03:49→21:27)
[2016-11-16 05:03] LABS: ABSOLUTE BASOPHILS # (AUTO) 0.1 10^3/uL (0.0-0.2); ABSOLUTE EOSINOPHILS # (AUTO) 0.2 10^3/uL (0.0-0.6); ABSOLUTE LYMPHOCYTES (AUTO) 2.7 10^3/uL (0.5-4.7); ABSOLUTE MONOCYTES (AUTO) 0.8 10^3/uL (0.1-1.4); ABSOLUTE NEUT (AUTO) 3.6 10^3/uL (1.7-8.2); BASOPHILS % (AUTO) 1.3 % (0-2); EOSINOPHILS % (AUTO) 3.3 % (0-6); HEMATOCRIT 33.7 % (37.9-51.0); HEMOGLOBIN 11.2 g/dL (13.5-17.0); HGB HCT DIFFERENCE -0.1; MEAN CORPUSCULAR HEMOGLOBIN 34.8 pg (27.0-33.4); MEAN CORPUSCULAR HGB CONC 33.4 g/dL (32.0-36.0); MEAN CORPUSCULAR VOLUME 104 fl (80-97); MONOCYTES % (AUTO) 10.8 % (3-13); RED BLOOD COUNT 3.23 10^6/uL (4.35-5.55); RED CELL DISTRIBUTION WIDTH 13.9 % (11.5-14.0); SEGMENTED NEUTROPHILS % (AUTO) 48.6 % (42-78); WHITE BLOOD COUNT 7.5 10^3/uL (4.0-10.5)
[2016-11-16 05:16] LABS: ANION GAP 8 (5-19); BLOOD UREA NITROGEN 10 mg/dL (7-20); CARBON DIOXIDE 21 mmol/L (22-30); CHLORIDE 110 mmol/L (98-107); CREATININE RESULT 0.67 mg/dL (0.52-1.25); GLUCOSE 88 mg/dL (75-110); POTASSIUM 4.3 mmol/L (3.6-5.0); SODIUM 139.3 mmol/L (137-145)
[2016-11-16] MEDS: POTASSI CL 20 MEQ/NS 1L 1,000 ML IV PRN ×2 (07:08→21:55)
[2016-11-16] MEDS: LOSARTAN POTASSIUM 50 MG TABLET PO SCH (09:38)
[2016-11-16] MEDS: POTASSIUM CHLORIDE 10 MEQ TABLET.SA PO SCH (09:38)
[2016-11-16] MEDS: VITAMIN E (DL, ACETATE) 400 UNIT CAPSULE PO SCH (09:38)
[2016-11-16] MEDS: CHOLECALCIFEROL (D3) 1,000 UNIT TABLET PO SCH (09:39)
[2016-11-16] MEDS: ATENOLOL 50 MG TABLET PO SCH ×2 (09:39→21:27)
[2016-11-16] MEDS: DULOXETINE HCL 30 MG CAPSULE.DR PO SCH (09:39)
[2016-11-16] MEDS: HYDROCHLOROTHIAZIDE 25 MG TABLET PO SCH (09:39)
[2016-11-16] MEDS: TAMSULOSIN HCL 0.4 MG CAP.SR.24H PO SCH ×2 (09:39→21:27)
[2016-11-16] MEDS: TIOTROPIUM BROMIDE DPI 5 CAP/KIT (18 MCG/CAP) IH SCH (09:39)
[2016-11-16] MEDS: PHENYTOIN SODIUM EXTENDED 100 MG CAPSULE PO SCH (09:40)
[2016-11-16] MEDS: ENOXAPARIN SODIUM INJ 40 MG/0.4 ML DISP.SYRIN SUBCUT SCH (09:40)
[2016-11-16] MEDS ORDERED: (PENDING PHARMACY ID) (Cholecalciferol (Vitamin D3) [Vitamin D3] 2,000 UNIT) PO SCH (10:00)
[2016-11-16] MEDS ORDERED: THIAMINE HCL 100 MG TABLET PO SCH (10:00)
[2016-11-16] MEDS ORDERED: (PENDING PHARMACY ID) (Multivit-Min/Fa/Lycopen/Lutein [Centrum Silver Men Tablet] 1 TAB) PO SCH (10:00)
[2016-11-16] MEDS ORDERED: (PENDING PHARMACY ID) (Vitamin E [Vitamin E] 400 UNIT) PO SCH (10:00)
[2016-11-16] MEDS ORDERED: (PENDING PHARMACY ID) (Duloxetine Hcl [Duloxetine Hcl] 60 MG) PO SCH (10:00)
[2016-11-16] MEDS ORDERED: (PENDING PHARMACY ID) (Losartan/Hydrochlorothiazide [Hyzaar 100-25 Tablet] 1 TAB) PO SCH (10:00)
[2016-11-16] MEDS ORDERED: (PENDING PHARMACY ID) (Potassium Chloride [Potassium Chloride] 10 MEQ) PO SCH (10:00)
[2016-11-16] MEDS ORDERED: (PENDING PHARMACY ID) (Atenolol [Atenolol] 100 MG) PO SCH (10:00)
[2016-11-16] MEDS: THIAMINE HCL 250 MG in NORMAL SALINE 50 ML IV SCH (11:15)
--- NOTE | 2016-11-16 13:49 | PDOC PROGRESS REPORT ---
Subjective Progress Note for:: 11/16/16 Subjective:: The patient was admitted because of the following wernicks encephalopathy and currently IV thiamine and patient's currently doing well Patients denied any chest pain denied any shortness of the breath Physical Exam Vital Signs: Temp Pulse Resp BP Pulse Ox 98.1 F 66 24 H 154/92 H 98 11/16/16 08:00 11/16/16 08:00 11/16/16 08:00 11/16/16 08:00 11/16/16 08:00 Intake & Output 11/15/16 11/16/16 11/17/16 06:59 06:59 06:59 Intake Total 3811 3714 Output Total 2150 2275 Balance 1661 1439 Weight 82.8 kg 82.8 kg General appearance: PRESENT: no acute distress, well-developed, well-nourished Head exam: PRESENT: atraumatic, normocephalic Eye exam: PRESENT: conjunctiva pink, EOMI, PERRLA. ABSENT: scleral icterus Ear exam: PRESENT: normal external ear exam Mouth exam: PRESENT: moist, tongue midline Neck exam: PRESENT: full ROM. ABSENT: carotid bruit, JVD, lymphadenopathy, thyromegaly Cardiovascular exam: PRESENT: RRR. ABSENT: diastolic murmur, rubs, systolic murmur Pulses: PRESENT: normal dorsalis pedis pul, +2 pedal pulses bilateral Vascular exam: PRESENT: normal capillary refill GI/Abdominal exam: PRESENT: normal bowel sounds, soft. ABSENT: distended, guarding, mass, organolmegaly, rebound, tenderness Rectal exam: PRESENT: deferred Neurological exam: PRESENT: alert, awake, oriented to person, oriented to place , oriented to time, oriented to situation, CN II-XII grossly intact. ABSENT: motor sensory deficit Psychiatric exam: PRESENT: appropriate affect, normal mood. ABSENT: homicidal ideation, suicidal ideation Skin exam: PRESENT: dry, intact, warm. ABSENT: cyanosis, rash Results Laboratory Results: 11/16/16 03:53 11/16/16 03:53 11/16/16 11/16/16 03:53 03:53 WBC 7.5 RBC 3.23 L Hgb 11.2 L Hct 33.7 L MCV 104 H MCH 34.8 H MCHC 33.4 RDW 13.9 Plt Count 355 Seg Neutrophils % 48.6 Lymphocytes % 36.0 Monocytes % 10.8 Eosinophils % 3.3 Basophils % 1.3 Absolute Neutrophils 3.6 Absolute Lymphocytes 2.7 Absolute Monocytes 0.8 Absolute Eosinophils 0.2 Absolute Basophils 0.1 Sodium 139.3 Potassium 4.3 Chloride 110 H Carbon Dioxide 21 L Anion Gap 8 BUN 10 Creatinine 0.67 Est GFR ( Amer) > 60 Est GFR (Non-Af Amer) > 60 Glucose 88 Calcium 9.0 11/09/16 11/09/16 11/10/16 19:15 19:15 01:14 Creatine Kinase 134 98 Troponin I 0.013 11/10/16 11/10/16 11/10/16 01:14 08:27 08:27 Creatine Kinase 70 Troponin I < 0.012 < 0.012 Impressions: Chest X-Ray 11/09/16 12:59 IMPRESSION: NO ACUTE CARDIOPULMONARY PROCESS. NO SIGNIFICANT CHANGE FROM PRIOR STUDY. Assessment & Plan - Diagnosis (1) Wernicke encephalopathy Is this a current diagnosis for this admission?: YesPlan: Continues to IV thiamine and continues to current other medications (2) Fall Qualifiers: Encounter type: initial encounter Qualified Code(s): W19.XXXA - Unspecified fall, initial encounter (3) Weakness Is this a current diagnosis for this admission?: YesPlan: Get the physical therapy evaluations (4) Type 2 diabetes mellitus Qualifiers: Diabetes mellitus complication status: with neurologic complications Diabetes mellitus complication detail: with polyneuropathy Diabetes mellitus joint terminal attack controller insulin use: with joint terminal attack controller use Qualified Code(s): E11.42 - Type 2 diabetes mellitus with diabetic polyneuropathy; Z79.4 - alf (current) use of insulin Is this a current diagnosis for this admission?: YesPlan: Continue sliding scale - Time Time Spent with patient: 15-24 minutes Medications reviewed and adjusted accordingly: Yes Anticipated discharge: SNF Within: Other - Inpatient Certification Medical Necessity: Need Close Monitoring Due to Risk of Patient Decompensation Post Hospital Care: D/C Receiver Dispatcher Documentation - Plan Summary Plan Summary: cont curr med
[2016-11-17] MEDS: AMPICILLIN SODIUM/SULBACTAM NA 3 GM in NORMAL SALINE 100 ML IV SCH ×4 (02:55→20:55)
[2016-11-17 05:13] LABS: ANION GAP 10 (5-19); BLOOD UREA NITROGEN 11 mg/dL (7-20); CARBON DIOXIDE 22 mmol/L (22-30); CHLORIDE 106 mmol/L (98-107); CREATININE RESULT 0.66 mg/dL (0.52-1.25); GLUCOSE 92 mg/dL (75-110); POTASSIUM 3.8 mmol/L (3.6-5.0); SODIUM 137.8 mmol/L (137-145)
[2016-11-17] MEDS: DULOXETINE HCL 30 MG CAPSULE.DR PO SCH (10:01)
[2016-11-17] MEDS: ATENOLOL 50 MG TABLET PO SCH ×2 (10:01→21:00)
[2016-11-17] MEDS: LOSARTAN POTASSIUM 50 MG TABLET PO SCH (10:02)
[2016-11-17] MEDS: PHENYTOIN SODIUM EXTENDED 100 MG CAPSULE PO SCH (10:02)
[2016-11-17] MEDS: VITAMIN E (DL, ACETATE) 400 UNIT CAPSULE PO SCH (10:02)
[2016-11-17] MEDS: CHOLECALCIFEROL (D3) 1,000 UNIT TABLET PO SCH (10:02)
[2016-11-17] MEDS: POTASSIUM CHLORIDE 10 MEQ TABLET.SA PO SCH (10:02)
[2016-11-17] MEDS: HYDROCHLOROTHIAZIDE 25 MG TABLET PO SCH (10:02)
[2016-11-17] MEDS: MULTIVITAMIN TABLET PO SCH (10:02)
[2016-11-17] MEDS: TIOTROPIUM BROMIDE DPI 5 CAP/KIT (18 MCG/CAP) IH SCH (10:03)
[2016-11-17] MEDS: TAMSULOSIN HCL 0.4 MG CAP.SR.24H PO SCH ×2 (10:03→21:00)
[2016-11-17] MEDS: ENOXAPARIN SODIUM INJ 40 MG/0.4 ML DISP.SYRIN SUBCUT SCH (10:03)
[2016-11-17] MEDS: POTASSI CL 20 MEQ/NS 1L 1,000 ML IV PRN (10:11)
[2016-11-17] MEDS ORDERED: LORAZEPAM INJ 2 MG/1 ML VIAL IV ONE (11:00)
[2016-11-17] MEDS: LORAZEPAM INJ 2 MG/1 ML VIAL IV SCH (17:10)
--- NOTE | 2016-11-17 20:01 | PDOC PROGRESS REPORT ---
Subjective Progress Note for:: 11/17/16 Subjective:: He was seen by the bedside, he has episodes of confusion. Physical Exam Vital Signs: Temp Pulse Resp BP Pulse Ox 98.1 F 72 16 131/86 H 98 11/17/16 15:13 11/17/16 15:13 11/17/16 15:13 11/17/16 15:13 11/17/16 15:13 Intake & Output 11/16/16 11/17/16 11/18/16 06:59 06:59 06:59 Intake Total 3714 3472 1290 Output Total 2275 3425 1375 Balance 1439 47 -85 Weight 82.8 kg 82.4 kg General appearance: PRESENT: no acute distress Eye exam: PRESENT: PERRLA Respiratory exam: PRESENT: clear to auscultation vinnie Cardiovascular exam: PRESENT: +S1, +S2 GI/Abdominal exam: PRESENT: soft Neurological exam: PRESENT: alert, CN II-XII grossly intact Results Laboratory Results: 11/16/16 03:53 11/17/16 03:55 11/17/16 03:55 Sodium 137.8 Potassium 3.8 Chloride 106 Carbon Dioxide 22 Anion Gap 10 BUN 11 Creatinine 0.66 Est GFR ( Amer) > 60 Est GFR (Non-Af Amer) > 60 Glucose 92 Calcium 9.0 11/09/16 11/09/16 11/10/16 19:15 19:15 01:14 Creatine Kinase 134 98 Troponin I 0.013 11/10/16 11/10/16 11/10/16 01:14 08:27 08:27 Creatine Kinase 70 Troponin I < 0.012 < 0.012 Impressions: Chest X-Ray 11/09/16 12:59 IMPRESSION: NO ACUTE CARDIOPULMONARY PROCESS. NO SIGNIFICANT CHANGE FROM PRIOR STUDY. Assessment & Plan - Diagnosis (1) Wernicke encephalopathy Is this a current diagnosis for this admission?: YesPlan: Continue intravenous thiamine, lorazepam, and other treatment (2) Type 2 diabetes mellitus Qualifiers: Diabetes mellitus complication status: with neurologic complications Diabetes mellitus complication detail: with polyneuropathy Diabetes mellitus rodent exterminator insulin use: with half-way use Qualified Code(s): E11.42 - Type 2 diabetes mellitus with diabetic polyneuropathy; Z79.4 - terminal worker (current) use of insulin Is this a current diagnosis for this admission?: Yes
[2016-11-18] MEDS: LORAZEPAM INJ 2 MG/1 ML VIAL IV SCH ×3 (02:13→18:21)
[2016-11-18] MEDS: AMPICILLIN SODIUM/SULBACTAM NA 3 GM in NORMAL SALINE 100 ML IV SCH ×4 (04:01→21:23)
[2016-11-18] MEDS: POTASSI CL 20 MEQ/NS 1L 1,000 ML IV PRN ×2 (06:16→18:24)
[2016-11-18 07:41] LABS: ANION GAP 10 (5-19); BLOOD UREA NITROGEN 14 mg/dL (7-20); CARBON DIOXIDE 24 mmol/L (22-30); CHLORIDE 104 mmol/L (98-107); CREATININE RESULT 0.72 mg/dL (0.52-1.25); GLUCOSE 87 mg/dL (75-110); POTASSIUM 4.1 mmol/L (3.6-5.0); SODIUM 137.5 mmol/L (137-145)
[2016-11-18] MEDS: TAMSULOSIN HCL 0.4 MG CAP.SR.24H PO SCH ×2 (09:04→21:30)
[2016-11-18] MEDS: ATENOLOL 50 MG TABLET PO SCH ×2 (09:04→21:30)
[2016-11-18] MEDS: LOSARTAN POTASSIUM 50 MG TABLET PO SCH (09:05)
[2016-11-18] MEDS: PHENYTOIN SODIUM EXTENDED 100 MG CAPSULE PO SCH (09:05)
[2016-11-18] MEDS: POTASSIUM CHLORIDE 10 MEQ TABLET.SA PO SCH (09:05)
[2016-11-18] MEDS: HYDROCHLOROTHIAZIDE 25 MG TABLET PO SCH (09:05)
[2016-11-18] MEDS: MULTIVITAMIN TABLET PO SCH (09:05)
[2016-11-18] MEDS: DULOXETINE HCL 30 MG CAPSULE.DR PO SCH (09:05)
[2016-11-18] MEDS: CHOLECALCIFEROL (D3) 1,000 UNIT TABLET PO SCH (09:05)
[2016-11-18] MEDS: ENOXAPARIN SODIUM INJ 40 MG/0.4 ML DISP.SYRIN SUBCUT SCH (09:06)
[2016-11-18] MEDS: TIOTROPIUM BROMIDE DPI 5 CAP/KIT (18 MCG/CAP) IH SCH (09:08)
[2016-11-18] MEDS: VITAMIN E (DL, ACETATE) 400 UNIT CAPSULE PO SCH (09:08)
--- NOTE | 2016-11-18 18:44 | PDOC DISCHARGE SUMMARY ---
General - Admit/Disc Date/PCP Admission Date/Primary Care Provider: 11/09/16 18:52 SANTIAGO SEGUNDO MD Discharge Date: 11/18/16 - Discharge Diagnosis (1) Wernicke encephalopathy Is this a current diagnosis for this admission?: Yes (2) Type 2 diabetes mellitus Is this a current diagnosis for this admission?: Yes - Additional Information Resuscitation Status: Full Code Home Medications: Alendronate Sodium 70 mg PO WE 10/27/16 Atenolol 100 mg PO DAILY 10/27/16 Cholecalciferol (Vitamin D3) [Vitamin D3] 2,000 unit PO DAILY 10/27/16 Duloxetine HCl 60 mg PO DAILY 10/27/16 Lorazepam 1 mg PO Q12HP PRN 10/27/16 Metformin HCl [Metformin HCl ER] 500 mg PO WSUPPER 10/27/16 Phenytoin Sodium Extended 300 mg PO DAILY 10/27/16 Potassium Chloride 10 meq PO DAILY 10/27/16 Tamsulosin HCl [Flomax 0.4 mg Cap.sr] 0.4 mg PO Q12 10/27/16 Thiamine HCl [Vitamin B-1] 100 mg PO DAILY 10/27/16 Tiotropium [place] [Spiriva Handihaler 5 Cap/Kit (18 Mcg/Cap)] 1 cap IH DAILY Vitamin E 400 unit PO DAILY 10/27/16 Losartan/Hydrochlorothiazide [Hyzaar 100-25 Tablet] 1 tab PO DAILY 11/09/16 Multivit-Min/FA/Lycopen/Lutein [Centrum Silver Men Tablet] 1 tab PO DAILY History of Present Illness History of Present Illness: MATEO ROCK is a 66 year old male, he has a history of alcoholism, he was recently admitted in this hospital on October 27, 2016 presented with alcohol intoxication associated with delirium and electrolyte derangement including hypokalemia, hypomagnesemia and hyponatremia. He was treated and was transferred to long term on November 04 2016. I was called from the long term that patient was confused and acting inappropriately. He has a history of wernicke encephalopathy. He was seen and evaluated in the emergency room, he was very agitated,he was pulling on IV lines and hospital admission was advised Hospital Course Hospital Course: He was admitted for the management of encephalopathy, he was treated with high dose thiamine 500 NG IV every 8 hours for 2 days then 250mg IV daily for 5 days. He was empirically treated with intravenous antibiotic, Unasyn, no pathogen was isolated from the blood and urine. He also had scheduled intravenous lorazepam every 8 hours. Patient is more stable for discharge home he was transferred from the long term where he was having rehabilitation ,he developed acute encephalopathy consistent with wernicke encephalopathy. Physical Exam Vital Signs: Temp Pulse Resp BP Pulse Ox 97.6 F 70 17 133/86 H 100 11/18/16 15:23 11/18/16 15:23 11/18/16 15:23 11/18/16 15:23 11/18/16 15:23 Intake & Output 11/17/16 11/18/16 11/19/16 06:59 06:59 06:59 Intake Total 3472 2830 Output Total 3425 2200 Balance 47 630 Weight 82.4 kg 82 kg General appearance: PRESENT: no acute distress Eye exam: PRESENT: PERRLA Respiratory exam: PRESENT: clear to auscultation vinnie Cardiovascular exam: PRESENT: +S1, +S2 GI/Abdominal exam: PRESENT: soft Neurological exam: PRESENT: alert, CN II-XII grossly intact Results Laboratory Results: 11/16/16 03:53 11/18/16 05:55 11/18/16 05:55 Sodium 137.5 Potassium 4.1 Chloride 104 Carbon Dioxide 24 Anion Gap 10 BUN 14 Creatinine 0.72 Est GFR ( Amer) > 60 Est GFR (Non-Af Amer) > 60 Glucose 87 Calcium 9.0 11/09/16 11/09/16 11/10/16 19:15 19:15 01:14 Creatine Kinase 134 98 Troponin I 0.013 11/10/16 11/10/16 11/10/16 01:14 08:27 08:27 Creatine Kinase 70 Troponin I < 0.012 < 0.012 Impressions: Chest X-Ray 11/09/16 12:59 IMPRESSION: NO ACUTE CARDIOPULMONARY PROCESS. NO SIGNIFICANT CHANGE FROM PRIOR STUDY.
[2016-11-19] MEDS: LORAZEPAM INJ 2 MG/1 ML VIAL IV SCH ×2 (01:23→09:30)
[2016-11-19] MEDS: AMPICILLIN SODIUM/SULBACTAM NA 3 GM in NORMAL SALINE 100 ML IV SCH ×3 (03:30→16:22)
[2016-11-19] MEDS: DULOXETINE HCL 30 MG CAPSULE.DR PO SCH (09:29)
[2016-11-19] MEDS: PHENYTOIN SODIUM EXTENDED 100 MG CAPSULE PO SCH (09:29)
[2016-11-19] MEDS: POTASSIUM CHLORIDE 10 MEQ TABLET.SA PO SCH (09:29)
[2016-11-19] MEDS: VITAMIN E (DL, ACETATE) 400 UNIT CAPSULE PO SCH (09:30)
[2016-11-19] MEDS: ATENOLOL 50 MG TABLET PO SCH (09:30)
[2016-11-19] MEDS: HYDROCHLOROTHIAZIDE 25 MG TABLET PO SCH (09:30)
[2016-11-19] MEDS: MULTIVITAMIN TABLET PO SCH (09:30)
[2016-11-19] MEDS: TAMSULOSIN HCL 0.4 MG CAP.SR.24H PO SCH (09:30)
[2016-11-19] MEDS: LOSARTAN POTASSIUM 50 MG TABLET PO SCH (09:30)
[2016-11-19] MEDS: CHOLECALCIFEROL (D3) 1,000 UNIT TABLET PO SCH (09:30)
[2016-11-19] MEDS: TIOTROPIUM BROMIDE DPI 5 CAP/KIT (18 MCG/CAP) IH SCH (09:31)
[2016-11-19] MEDS: ENOXAPARIN SODIUM INJ 40 MG/0.4 ML DISP.SYRIN SUBCUT SCH (09:32)
[2016-11-19 13:28] VITALS: BP 132/89
[2016-11-19] MEDS ORDERED: (PENDING PHARMACY ID) (Alendronate Sodium [Alendronate Sodium] 70 MG) PO SCH (19:58)
== END 2016-11-19 17:14 | DRG 641 ==
LOC: ER 11:38 → EH 16:30 → UNDOADMIN 16:30 → 3W 17:18 → EH 17:18 → 3W 18:52 → EH 18:52 → 5 11-13 15:11
PROVIDERS: ADMIT Internal Medicine; ATTEND Internal Medicine
DX: E51.2 Wernicke's encephalopathy (principal); G40.909 Epilepsy, unspecified, not intractable, without status epilepticus; E11.9 Type 2 diabetes mellitus without complications; E78.5 Hyperlipidemia, unspecified; I10 Essential (primary) hypertension; J44.9 Chronic obstructive pulmonary disease, unspecified; F32.9 Major depressive disorder, single episode, unspecified; Z79.4 Long term (current) use of insulin; Z79.899 Other long term (current) drug therapy; F17.210 Nicotine dependence, cigarettes, uncomplicated
CPT/HCPCS: 36415; 36600; 51701; 71010; 80048; 80053; 80061; 80185; 80307; 81001; 82140; 82150; 82550; 82803; 82962; 83036; 83605; 83690; 83735; 84100; 84439; 84443; 84484; 85025; 85610; 85730; 87040; 87086; 93005; 96365; 96375; 96376; 99285; G8978-GP; G8979-GP; G8980-GP; J0295; J1650; J2060; J3411; J3475; J3480; J3490; J7030

== ENCOUNTER 2017-02-11 09:25 | Day surgery (SDC) | payer MEDICARE, MEDICAID ==
[~2017-02-11 09:25] MED LIST: KETOROLAC TROMETHAMINE 0.45% 4 DROP/0.4 ML DROPERETTE OS PRN
[2017-02-11] MEDS ORDERED: LIDOCAINE 1% INJ-PF (10 MG/ML) 30 ML SDV ONE (09:40)
[2017-02-11] MEDS ORDERED: TOBRAMYCIN SULFATE/DEXAMETH OPH OINTMENT 3.5 GM ONE (09:40)
[2017-02-11] MEDS ORDERED: EPINEPHRINE INJ/PF 1 MG/1 ML AMPULE ONE (09:40)
[2017-02-11] MEDS ORDERED: CHONDR SU A NA/HYALUR INTRAOC KIT (SURGICARE) ONE (09:40)
[2017-02-11] MEDS: TROPICAMIDE 1% OPH SOLN 3 ML OS PRN ×3 (10:13→10:35)
[2017-02-11] MEDS: CYCLOPENTOLATE 0.2%/PHENYLEPHRINE 1% OPH SOLN 2 ML OS PRN ×3 (10:13→10:36)
[2017-02-11] MEDS: BESIFLOXACIN HCL 0.6% OPH SUSP 5 ML BOTTLE OS PRN ×3 (10:14→11:05)
[2017-02-11] MEDS: LIDOCAINE 3.5% OPH GEL/PF 1 ML/TUBE OS PRN ×3 (10:16→10:48)
[2017-02-11] MEDS ORDERED: MIDAZOLAM 2 MG/2 ML INJ ONE (10:32)
[2017-02-11] MEDS ORDERED: FENTANYL CITRATE INJ/PF 100 MCG/2 ML AMPUL ONE (10:32)
[2017-02-11] MEDS ORDERED: ONDANSETRON HCL INJ/PF 4 MG/2 ML SDV ONE (10:33)
== END 2017-02-11 11:37 | disposition home or self-care (01) ==
LOC: SC 09:25
PROVIDERS: ATTEND Ophthalmology
PROC: 08RK3JZ Replacement of Left Lens with Synthetic Substitute, Percutaneous Approach (ICD-10-PCS; principal; 2017-02-11 10:30)
DX: H25.12 Age-related nuclear cataract, left eye (principal); Z98.41 Cataract extraction status, right eye; Z96.1 Presence of intraocular lens; J44.9 Chronic obstructive pulmonary disease, unspecified; E11.9 Type 2 diabetes mellitus without complications; I10 Essential (primary) hypertension; E78.00 Pure hypercholesterolemia, unspecified; M19.90 Unspecified osteoarthritis, unspecified site; G40.909 Epilepsy, unspecified, not intractable, without status epilepticus; F32.9 Major depressive disorder, single episode, unspecified; Z79.899 Other long term (current) drug therapy
CPT/HCPCS: 66984; 82962; V2630; J2250; J3490 ×3; A9270 ×2; J0171; J3010; J2405; 142

== ENCOUNTER → 2017-08-06 | Outpatient (CLI) | payer MEDICAID, MEDICARE ==
--- NOTE | 2017-08-06 09:52 | RADIOLOGY REPORT (SQ) ---
EXAM DESCRIPTION: CT LUNG CANCER SCREENING COMPLETED DATE/TIME: 08/06/2017 9:39 am REASON FOR STUDY: ENCOUNTER FOR SCREENING FOR MAL KATHY OF RESPIRATORY ORGANS F17.218 NICOTINE DEPEND ENCE, CIGARETTES, W OTH DISORDERS Has the patient had a Chest CT scan within the past year? No. Was the patient offered tobacco cessation counseling? Yes. Was the patient engaged in shared decision making for this test? Yes. Does the patient have signs or symptoms of Lung Cancer? No. Is the patient a smoker? Yes. How many packs per year? 365. How many years since quitting smoking? Current smoker. Patients age: 67. COMPARISON: None. TECHNIQUE: Low Dose CT scan performed of the chest without intravenous contrast for purposes of scre ening for lung cancer. Images reviewed with lung, soft tissue and bone windows. Reconstructed coron al and sagittal MPR images reviewed. All images stored on PACS. All CT scanners at this facility use dose modulation, iterative reconstruction, and/or weight based d osing when appropriate to reduce radiation dose to as low as reasonably achievable (ALARA). [facility]: Dose Right [facility]: CareDose [facility]: Dose Right [facility]: Teradose 4D [facility]: [employer] RADIATION DOSE: CT Rad equipment meets quality standard of care and radiation dose reduction techniq ues were employed. CTDIvol: 2.1 mGy. DLP: 81 mGy-cm. mGy. . LIMITATIONS: None FINDINGS: LUNGS AND PLEURA: No masses or nodules. No pleural effusions or calcifications. No pne umothorax. Focal linear scarring in the lingula. HILAR AND MEDIASTINAL STRUCTURES: No identified masses. No abnormal nodes. HEART AND VASCULAR STRUCTURES: No aortic aneurysm. No pericardial effusion. No cardiac devices. CORONARY ARTERY CALCIFICATIONS: Mild to moderate calcifications. UPPER ABDOMEN, THYROID, BONES, OTHER SOFT TISSUES: No significant findings. IMPRESSION: NO SIGNIFICANT FINDING IN THE LUNGS ON NON-CONTRASTED CHEST CT. NO OTHER CLINICALLY SIGNIFICANT/POTENTIALLY CLINICALLY SIGNIFICANT FINDINGS LUNGRADS: LUNGRADS: 1 NEGATIVE. NO NODULES, OR DEFINITELY BENIGN NODULES MODIFIER: NONE RECOMMENDATION: Continue annual screening with LDCT in 12 months. COMMENT: CRITERIA: No lung nodules. Nodules with specific calcifications: Complete, central, popcorn, concentric rings and fat containin g nodules. TECHNICAL DOCUMENTATION: JOB ID: [id number] Quality ID # [id number]: Final reports with documentation of one or more dose reduction techniques (e.g., Au tomated exposure control, adjustment of the mA and/or kV according to patient size, use of iterative reconstruction technique) 2010 [facility] Reading location - IP/workstation name: [email or web address]
== END ==
LOC: RAD 08:37
PROVIDERS: ATTEND Internal Medicine
DX: Z12.2 Encounter for screening for malignant neoplasm of respiratory organs (principal); F17.218 Nicotine dependence, cigarettes, with other nicotine-induced disorders
CPT/HCPCS: G0297

== ENCOUNTER 2018-05-13 10:15 | Inpatient (IN) | payer MEDICARE ==
[2018-05-13] MEDS ORDERED: NORMAL SALINE 1000 ML 1,000 ML IV PRN (10:50)
[2018-05-13] MEDS ORDERED: HYDROMORPHONE HCL INJ/PF 2 MG/ML AMPULE IV PRN ×2 (10:52→14:16)
[2018-05-13 12:26] LABS: HEMATOCRIT 38.7 % (37.9-51.0); HEMOGLOBIN 13.8 g/dL (13.5-17.0); MEAN CORPUSCULAR HEMOGLOBIN 34.2 pg (27.0-33.4); MEAN CORPUSCULAR HGB CONC 35.6 g/dL (32.0-36.0); MEAN CORPUSCULAR VOLUME 96 fl (80-97); PLATELET COUNT 322 10^3/uL (150-450); RED BLOOD COUNT 4.02 10^6/uL (4.35-5.55); RED CELL DISTRIBUTION WIDTH 15.5 % (11.5-14.0); WHITE BLOOD COUNT 22.6 10^3/uL (4.0-10.5)
[2018-05-13 12:54] LABS: ABSOLUTE LYMPHOCYTES# (MANUAL) 1.6 10^3/uL (0.5-4.7); ABSOLUTE MONOCYTES # (MANUAL) 1.4 10^3/uL (0.1-1.4); ABSOLUTE NEUTROPHILS# (MANUAL) 19.7 10^3/uL (1.7-8.2); ANISOCYTOSIS SLIGHT; BASOPHILS % (MANUAL) 0 % (0-2); EOSINOPHILS % (MANUAL) 0 % (0-6); LYMPHOCYTES % (MANUAL) 7 % (13-45); MONOCYTES % (MANUAL) 6 % (3-13); PLATELET COMMENT ADEQUATE; SEGMENTED NEUTROPHILS % (MAN) 87 % (42-78); TOTAL CELLS COUNTED 100; TOXIC GRANULATION 1+
[2018-05-13 12:56] LABS: ALANINE AMINOTRANSFERASE 13 U/L (21-72); ALBUMIN 3.4 g/dL (3.5-5.0); ALKALINE PHOSPHATASE 231 U/L (38-126); AMYLASE 863 U/L (30-110); ANION GAP 12 (5-19); ASPARTATE AMINO TRANSFERASE 42 U/L (17-59); BILIRUBIN,DIRECT 1.2 mg/dL (0.0-0.4); BLOOD UREA NITROGEN 13 mg/dL (7-20); CALCIUM 8.8 mg/dL (8.4-10.2); CARBON DIOXIDE 29 mmol/L (22-30); CHLORIDE 91 mmol/L (98-107); GLUCOSE 129 mg/dL (75-110); POTASSIUM 3.1 mmol/L (3.6-5.0); SODIUM 131.5 mmol/L (137-145); TOTAL PROTEIN 7.2 g/dL (6.3-8.2)
[2018-05-13 13:26] LABS: LIPASE 5176.2 U/L (23-300)
[2018-05-13] MEDS ORDERED: LORAZEPAM INJ 2 MG/1 ML VIAL IV SCH (14:00)
[2018-05-13] MEDS ORDERED: DEXTROSE 50%-WATER 25 GM/50 ML DISP.SYRIN IV PRN ×2 (14:11)
[2018-05-13] MEDS ORDERED: DEXTROSE 40% GEL 15 GM TUBE PO PRN ×2 (14:11)
[2018-05-13] MEDS ORDERED: GLUCAGON,HUMAN RECOMB 1 MG INJ SUBCUT PRN (14:11)
[2018-05-13] MEDS ORDERED: POTASSI CL 40 MEQ/NS 1L 1,000 ML IV PRN (14:11)
[2018-05-13] MEDS: LORAZEPAM INJ 2 MG/1 ML VIAL IV SCH ×2 (14:50→21:26)
[2018-05-13] MEDS ORDERED: HYDROMORPHONE HCL INJ/PF 2 MG/ML AMPULE IV ONE (15:30)
--- NOTE | 2018-05-13 15:45 | RADIOLOGY REPORT (SQ) ---
EXAM DESCRIPTION: CT CHEST WITH COMPLETED DATE/TIME: 05/13/2018 3:25 pm REASON FOR STUDY: hypertension COMPARISON: 12/11/2014 TECHNIQUE: CT scan of the chest performed using helical scanning technique with dynamic intravenous contrast injection. Images reviewed with lung, soft tissue and bone windows. Reconstructed coronal and sagittal MPR and MIP images reviewed. All images stored on PACS. All CT scanners at this facility use dose modulation, iterative reconstruction, and/or weight based d osing when appropriate to reduce radiation dose to as low as reasonably achievable (ALARA). [facility]: Dose Right [facility]: CareDose [facility]: Dose Right [facility]: Teradose 4D [facility]: [employer] CONTRAST TYPE AND DOSE: See separate report same date. RENAL FUNCTION: See separate report of the same date. RADIATION DOSE: . LIMITATIONS: None. FINDINGS: LUNGS AND PLEURA: Subsegmental airspace disease in the right lower lobe most likely atelec tasis. Upper lobe predominant centrilobular emphysema. No effusions. HILAR AND MEDIASTINAL STRUCTURES: No identified masses or abnormal nodes. HEART AND VASCULAR STRUCTURES: No aneurysm or dissection. No central pulmonary emboli. No pericardi al effusion. HARDWARE: None in the chest. UPPER ABDOMEN: See separate report of the CT of the abdomen. THYROID AND OTHER SOFT TISSUES: No masses. No adenopathy. BONES: Chronic lower thoracic compression fractures. Nothing acute. OTHER: No other significant finding. IMPRESSION: COPD. Right basilar atelectasis. TECHNICAL DOCUMENTATION: JOB ID: [id number] Quality ID # [id number]: Final reports with documentation of one or more dose reduction techniques (e.g., Au tomated exposure control, adjustment of the mA and/or kV according to patient size, use of iterative reconstruction technique) 2010 [employer]- All Rights Reserved Reading location - IP/workstation name: [email or web address]
[2018-05-13 16:21] LABS: INTERNATIONAL RATION (INR) 1.24; PROTHROMBIN TIME 16.3 SEC (11.4-15.4)
[2018-05-13 16:22] LABS: PARTIAL THROMBOPLASTIN TIME 43.7 SEC (23.5-35.8)
[2018-05-13 16:33] LABS: PHOSPHORUS 3.6 mg/dL (2.5-4.5)
[2018-05-13] MEDS: POTASSI CL 40 MEQ/NS 1L 1,000 ML IV PRN (16:34)
[2018-05-13 16:47] LABS: TROPONIN I 0.019 ng/mL
[2018-05-13 16:50] LABS: CREATINE KINASE MB < 0.22 ng/mL (<4.55)
--- NOTE | 2018-05-13 16:58 | RADIOLOGY REPORT (SQ) ---
EXAM DESCRIPTION: CT ABD/PELVIS WITH IV ONLY COMPLETED DATE/TIME: 05/13/2018 3:25 pm REASON FOR STUDY: pain COMPARISON: None. TECHNIQUE: CT scan of the abdomen and pelvis performed using helical scanning technique with dynamic intravenous contrast injection. No oral contrast. Images reviewed with lung, soft tissue, and bone windows. Reconstructed coronal and sagittal MPR images reviewed. Delayed images for evaluation of the urinary system also acquired. All images stored on PACS. All CT scanners at this facility use dose modulation, iterative reconstruction, and/or weight based d osing when appropriate to reduce radiation dose to as low as reasonably achievable (ALARA). [facility]: Dose Right [facility]: CareDose [facility]: Dose Right [facility]: Teradose 4D [facility]: [employer] CONTRAST TYPE AND DOSE: contrast/concentration: Isovue 350.00 mg/ml; Total Contrast Delivered: 75.0 ml; Total Saline Delivered: 67.0 ml RENAL FUNCTION: GFR > 60. RADIATION DOSE: CT Rad equipment meets quality standard of care and radiation dose reduction techniq ues were employed. CTDIvol: 5.5 - 6.0 mGy. DLP: 833 mGy-cm.. LIMITATIONS: None. FINDINGS: LOWER CHEST: 1 cm right cardiophrenic node. Also see separate report of the same date. LIVER: Intra and extrahepatic biliary dilatation. Periportal edema. Main portal vein is not well vi sualized and may be thrombosed. No liver mass identified. SPLEEN: Normal size. No focal lesions. PANCREAS: Partially calcified mass in the uncinate process with more superior low-density margins dif ficult to quantify due to distorted tissue planes, but roughly 5.8 x 7.2 cm in craniocaudal by transv erse diameter. Necrotic part of the mass encases the celiac artery, SMA, and probably the SMV. Ther e is regional adenopathy, the largest gastrohepatic 1.1 x 2.1 cm. GALLBLADDER: Gallstones. No inflammatory changes to suggest cholecystitis. ADRENAL GLANDS: No significant masses or asymmetry. RIGHT KIDNEY AND URETER: No solid masses. No significant calcifications. No hydronephrosis or hyd roureter. LEFT KIDNEY AND URETER: No solid masses. No significant calcifications. No hydronephrosis or hydr oureter. AORTA AND VESSELS: Atherosclerotic aorta. No aneurysm. RETROPERITONEUM: No retroperitoneal adenopathy, hemorrhage or masses. BOWEL AND PERITONEAL CAVITY: Small amount of ascites. Diverticulosis. No masses or inflammatory duc nges. No free fluid or peritoneal masses. APPENDIX: Not visualized. PELVIS: Small amount of free fluid. No pelvic adenopathy. ABDOMINAL WALL: No masses. No hernias. BONES: Nothing acute. Chronic compression fractures. OTHER: No other significant finding. IMPRESSION: 1. Partially calcified necrotic mass extending from the uncinate process into the head of the pancrea s worrisome for carcinoma. There is biliary dilatation, vessel encasement, possible portal vein thro mbosis, and regional adenopathy. 2. Follow up ERCP is recommended. TECHNICAL DOCUMENTATION: JOB ID: [id number] Quality ID # [id number]: Final reports with documentation of one or more dose reduction techniques (e.g., Au tomated exposure control, adjustment of the mA and/or kV according to patient size, use of iterative reconstruction technique) 2010 [employer]- All Rights Reserved Reading location - IP/workstation name: [email or web address]
[2018-05-13 18:04] LABS: FREE T4 (FREE THYROXINE) 2.49 ng/dL (0.78-2.19)
[2018-05-13] MEDS ORDERED: ONDANSETRON HCL INJ/PF 4 MG/2 ML SDV IV PRN (18:13)
[2018-05-13 18:17] LABS: THYROID STIMULATING HORMONE 1.03 uIU/mL (0.47-4.68)
[2018-05-13] MEDS: HYDROMORPHONE HCL INJ/PF 2 MG/ML AMPULE IV PRN (18:48)
[2018-05-13] MEDS: NICOTINE 21 MG/24 HR PATCH.TD24 TD SCH (18:49)
[2018-05-13] MEDS: THIAMINE HCL 100 MG, FOLIC ACID 1 MG in NORMAL SALINE 250 ML IV SCH (18:58)
--- NOTE | 2018-05-13 19:30 | PDOC H&P ---
History of Present Illness Admission Date/PCP: 05/13/18 10:15 SANTIAGO SEGUNDO MD History of Present Illness: MATEO ROCK is a 68 year old male Patient came to the office today for routine annual wellness visit, I noticed that he has lost roughly 10 pounds in a span of a month, he also complained of abdominal pain, on examination in the office there is tenderness of the abdomen , the conjunctiva was pale and slightly icterus.He was admitted directly from the office into the hospital for further evaluation of his symptoms, the hemogram demonstrated severe leukocytosis predominantly neutrophils, CT scan of chest abdomen and pelvis with IV contrast was obtained, it demonstrated intra-and extrahepatic biliary dilatation, periportal edema also found was a partially calcified mass in the uncinate process of the pancreas with small superior low-density margins, it measures 5.8 x 7.2 cm in craniocaudal by transverse diameter. Necrotic part of the mass encases the celiac artery, SMA and SMV there is regional adenopathy, gallstones. This mass is suspicious for malignancy. There is evidence of obstructive jaundice with hyperbilirubinemia, elevated alkaline phosphataseHe has a history of alcohol abuse he drinks 6 beers every day he also smokes cigarettes for many years Past Medical History Cardiac Medical History: Reports: Hyperlipidema, Hypertension - ON MEDS Pulmonary Medical History: Reports: Chronic Obstructive Pulmonary Disease (COPD) Neurological Medical History: Reports: Seizures - ABOUT 1 YEAR AGO Endocrine Medical History: Reports: Diabetes Mellitus Type 2 Psychiatric Medical History: Reports: Depression Social History Lives with: Alone Smoking Status: Current Every Day Smoker Frequency of Alcohol Use: Heavy Hx Recreational Drug Use: Yes Drugs: Marijuana Hx Prescription Drug Abuse: No Family History Family History: Reviewed & Not Pertinent Parental Family History Reviewed: Yes Children Family History Reviewed: Yes Sibling(s) Family History Reviewed.: Yes Medication/Allergy Home Medications: Alendronate Sodium 70 mg PO WE 10/27/16 Atenolol 100 mg PO DAILY 10/27/16 Cholecalciferol (Vitamin D3) [Vitamin D3] 2,000 unit PO DAILY 10/27/16 Duloxetine HCl 60 mg PO DAILY 10/27/16 Lorazepam 1 mg PO BID 10/27/16 Metformin HCl [Metformin HCl ER] 500 mg PO WSUPPER 10/27/16 Phenytoin Sodium Extended 300 mg PO DAILY 10/27/16 Potassium Chloride 10 meq PO DAILY 10/27/16 Tamsulosin HCl [Flomax 0.4 mg Cap.sr] 0.4 mg PO DAILY 10/27/16 Thiamine HCl [Vitamin B-1] 100 mg PO DAILY 10/27/16 Vitamin E 400 unit PO DAILY 10/27/16 Multivit-Min/FA/Lycopen/Lutein [Centrum Silver Men Tablet] 1 tab PO DAILY Omeprazole 40 mg PO DAILY 05/13/18 Pravastatin Sodium [Pravachol] 40 mg PO DAILY 05/13/18 Telmisartan/Hydrochlorothiazid [Micardis HCT 80-25 mg Tablet] 1 each PO DAILY Umeclidinium Brm/Vilanterol Tr [Anoro Ellipta 62.5-25 Mcg INH] 1 puff IH DAILY 05/13/18 Allergies/Adverse Reactions: No Known Drug Allergies Allergy (Verified 02/03/17 14:17) Review of Systems Constitutional: PRESENT: fatigue, weight loss Eyes: ABSENT: visual disturbances Ears: ABSENT: hearing changes Cardiovascular: ABSENT: chest pain, dyspnea on exertion, edema, orthropnea, palpitations Respiratory: ABSENT: cough, hemoptysis Gastrointestinal: PRESENT: abdominal pain, nausea Genitourinary: ABSENT: dysuria, hematuria Musculoskeletal: ABSENT: joint swelling Integumentary: ABSENT: rash, wounds Neurological: ABSENT: abnormal gait, abnormal speech, confusion, dizziness, focal weakness, syncope Psychiatric: ABSENT: anxiety, depression, homidical ideation, suicidal ideation Endocrine: ABSENT: cold intolerance, heat intolerance, menstrual abnormalities, polydipsia, polyuria Hematologic/Lymphatic: ABSENT: easy bleeding, easy bruising, lymphadenopathy Physical Exam Vital Signs: Temp Pulse Resp BP Pulse Ox 98.8 F 87 16 108/78 94 05/13/18 16:42 05/13/18 16:42 05/13/18 16:42 05/13/18 16:42 05/13/18 16:42 Intake & Output 05/12/18 05/13/18 05/14/18 06:59 06:59 06:59 Intake Total 0 Output Total 425 Balance -425 Weight 65.771 kg General appearance: PRESENT: no acute distress Head exam: PRESENT: atraumatic, normocephalic Eye exam: PRESENT: conjunctiva pale, PERRLA, scleral icterus Neck exam: PRESENT: full ROM Respiratory exam: PRESENT: clear to auscultation vinnie Cardiovascular exam: PRESENT: RRR, +S1, +S2 Pulses: PRESENT: normal dorsalis pedis pul, +2 pedal pulses bilateral Vascular exam: PRESENT: normal capillary refill GI/Abdominal exam: PRESENT: normal bowel sounds, soft, tenderness Rectal exam: PRESENT: deferred Neurological exam: PRESENT: alert, awake, oriented to person, oriented to place , oriented to time, oriented to situation, CN II-XII grossly intact Psychiatric exam: PRESENT: appropriate affect, normal mood Skin exam: PRESENT: dry, intact, warm Results Laboratory Results: 05/13/18 11:19 05/13/18 11:19 05/13/18 05/13/18 05/13/18 11:19 11:19 15:47 WBC 22.6 H RBC 4.02 L Hgb 13.8 Hct 38.7 MCV 96 MCH 34.2 H MCHC 35.6 RDW 15.5 H Plt Count 322 Seg Neutrophils % Not Reportable Lymphocytes % Not Reportable Monocytes % Not Reportable Eosinophils % Not Reportable Basophils % Not Reportable Absolute Neutrophils Not Reportable Absolute Lymphocytes Not Reportable Absolute Monocytes Not Reportable Absolute Eosinophils Not Reportable Absolute Basophils Not Reportable Sodium 131.5 L Potassium 3.1 L Chloride 91 L Carbon Dioxide 29 Anion Gap 12 BUN 13 Creatinine 0.42 L Est GFR ( Amer) > 60 Est GFR (Non-Af Amer) > 60 Glucose 129 H Calcium 8.8 Phosphorus 3.6 Magnesium 1.5 L Total Bilirubin 2.0 H AST 42 ALT 13 L Alkaline Phosphatase 231 H Total Protein 7.2 Albumin 3.4 L Amylase 863 H 554 H Lipase 5176.2 H 2006.4 H TSH Free T4 05/13/18 15:47 WBC RBC Hgb Hct MCV MCH MCHC RDW Plt Count Seg Neutrophils % Lymphocytes % Monocytes % Eosinophils % Basophils % Absolute Neutrophils Absolute Lymphocytes Absolute Monocytes Absolute Eosinophils Absolute Basophils Sodium Potassium Chloride Carbon Dioxide Anion Gap BUN Creatinine Est GFR ( Amer) Est GFR (Non-Af Amer) Glucose Calcium Phosphorus Magnesium Total Bilirubin AST ALT Alkaline Phosphatase Total Protein Albumin Amylase Lipase TSH 1.03 Free T4 2.49 H 05/13/18 05/13/18 15:47 15:47 Creatine Kinase < 20 L CK-MB (CK-2) < 0.22 Troponin I 0.019 Impressions: Abdomen/Pelvis CT 05/13/18 00:00 IMPRESSION: 1. Partially calcified necrotic mass extending from the uncinate process into the head of the pancreas worrisome for carcinoma. There is biliary dilatation, vessel encasement, possible portal vein thrombosis, and regional adenopathy. 2. Follow up ERCP is recommended. Chest CT 05/13/18 10:42 IMPRESSION: COPD. Right basilar atelectasis. Assessment & Plan - Diagnosis (1) Pancreatic mass Is this a current diagnosis for this admission?: Yes Plan: This is most likely malignant neoplasm, tissue biopsy would be needed, combination of weight loss obstructive jaundice tobacco use suggests malignant neoplasm (2) Obstructive jaundice Is this a current diagnosis for this admission?: Yes (3) Acute pancreatitis Qualifiers: Pancreatitis type: alcohol induced Acute pancreatitis complication: unspecified Qualified Code(s): K85.20 - Alcohol induced acute pancreatitis without necrosis or infection Is this a current diagnosis for this admission?: Yes (4) Type 2 diabetes mellitus Qualifiers: Diabetes mellitus assisted insulin use: with assisted use Diabetes mellitus complication status: with neurologic complications Diabetes mellitus complication detail: with polyneuropathy Qualified Code(s): E11.42 - Type 2 diabetes mellitus with diabetic polyneuropathy Is this a current diagnosis for this admission?: Yes (5) Alcohol abuse Is this a current diagnosis for this admission?: Yes Plan: Start Lorazepam on his schedule patient drinks alcohol every single day, history of alcohol withdrawal syndrome, I anticipate withdrawal syndrome in this patient, empirically start lorazepam
[2018-05-13 20:00] LABS: URINE AMPHETAMINES SCREEN NEGATIVE; URINE BARBITURATES SCREEN NEGATIVE; URINE BENZODIAZEPINES SCREEN NEGATIVE; URINE COCAINE SCREEN NEGATIVE; URINE METHADONE SCREEN NEGATIVE; URINE PHENCYCLIDINE SCREEN NEGATIVE
[2018-05-13] MEDS ORDERED: POTASSI CL 20 MEQ/50 ML RIDER 20 MEQ/50 ML RTUPB IV ONE (20:00)
[2018-05-13 20:11] LABS: URINE MARIJUANA (THC) SCREEN UNCONFIRMED POSITIVE
[2018-05-13 23:10] LABS: ARTERIAL BLOOD BASE EXCESS 4.3 mmol/L; ARTERIAL BLOOD FIO2 21%; ARTERIAL BLOOD H2CO3 1.01 mmol/L (1.05-1.35); ARTERIAL BLOOD O2 SATURATION 91.2 % (94-98); ARTERIAL BLOOD PCO2 33.7 mmHg (35-45); ARTERIAL BLOOD PH 7.52 (7.35-7.45); ARTERIAL BLOOD PO2 53.6 mmHg (80-100)
[2018-05-13 23:44] LABS: CREATINE KINASE MB < 0.22 ng/mL (<4.55); TROPONIN I < 0.012 ng/mL
[2018-05-14] MEDS: POTASSI CL 40 MEQ/NS 1L 1,000 ML IV PRN ×3 (02:51→17:14)
[2018-05-14 05:08] LABS: ABSOLUTE BASOPHILS # (AUTO) 0.1 10^3/uL (0.0-0.2); ABSOLUTE LYMPHOCYTES (AUTO) 1.4 10^3/uL (0.5-4.7); ABSOLUTE MONOCYTES (AUTO) 2.4 10^3/uL (0.1-1.4); ABSOLUTE NEUT (AUTO) 15.5 10^3/uL (1.7-8.2); BASOPHILS % (AUTO) 0.4 % (0-2); EOSINOPHILS % (AUTO) 0.1 % (0-6); HEMATOCRIT 34.6 % (37.9-51.0); HEMOGLOBIN 12.2 g/dL (13.5-17.0); MEAN CORPUSCULAR HEMOGLOBIN 34.2 pg (27.0-33.4); MEAN CORPUSCULAR HGB CONC 35.2 g/dL (32.0-36.0); MEAN CORPUSCULAR VOLUME 97 fl (80-97); MONOCYTES % (AUTO) 12.5 % (3-13); PLATELET COUNT 267 10^3/uL (150-450); RED BLOOD COUNT 3.57 10^6/uL (4.35-5.55); RED CELL DISTRIBUTION WIDTH 15.5 % (11.5-14.0); TOTAL CELLS COUNTED % (AUTO) 100 %; WHITE BLOOD COUNT 19.4 10^3/uL (4.0-10.5)
[2018-05-14 05:52] LABS: ALANINE AMINOTRANSFERASE 10 U/L (21-72); ALBUMIN 2.7 g/dL (3.5-5.0); ALKALINE PHOSPHATASE 185 U/L (38-126); ANION GAP 7 (5-19); ASPARTATE AMINO TRANSFERASE 30 U/L (17-59); BILIRUBIN,DIRECT 1.2 mg/dL (0.0-0.4); BILIRUBIN,TOTAL 1.8 mg/dL (0.2-1.3); BLOOD UREA NITROGEN 11 mg/dL (7-20); CALCIUM 8.2 mg/dL (8.4-10.2); CARBON DIOXIDE 28 mmol/L (22-30); CHLORIDE 100 mmol/L (98-107); GLUCOSE 105 mg/dL (75-110); POTASSIUM 3.8 mmol/L (3.6-5.0); SODIUM 134.5 mmol/L (137-145)
[2018-05-14 05:56] LABS: CREATINE KINASE MB < 0.22 ng/mL (<4.55); TROPONIN I < 0.012 ng/mL
[2018-05-14] MEDS: LORAZEPAM INJ 2 MG/1 ML VIAL IV SCH ×3 (07:03→21:56)
[2018-05-14] MEDS: HYDROMORPHONE HCL INJ/PF 2 MG/ML AMPULE IV PRN ×6 (07:30→21:58)
[2018-05-14] MEDS ORDERED: ENOXAPARIN SODIUM INJ 40 MG/0.4 ML DISP.SYRIN SUBCUT SCH (10:00)
[2018-05-14] MEDS: NICOTINE 21 MG/24 HR PATCH.TD24 TD SCH (11:08)
[2018-05-14] MEDS: CHLORPROMAZINE HCL 50 MG TABLET PO PRN (11:36)
--- NOTE | 2018-05-14 17:36 | PDOC PROGRESS REPORT ---
Subjective Progress Note for:: 05/14/18 Subjective:: Patient seen by the bedside, he does not want any further intervention, he does not want diagnostic procedures done, he has a pancreatic mass most likely is cancer, his mother from cancer of the pancreas as well. Hospice consult will be requested Reason For Visit: HYPERTENSION, ABDOMINAL PAIN, WEIGHT LOSS, Physical Exam Vital Signs: Temp Pulse Resp BP Pulse Ox 99.0 F 108 H 18 128/83 H 91 L 05/14/18 07:55 05/14/18 14:00 05/14/18 07:55 05/14/18 07:55 05/14/18 07:55 Intake & Output 05/13/18 05/14/18 05/15/18 06:59 06:59 06:59 Intake Total 2029.2 1915 Output Total 550 Balance 1479.2 1915 Weight 66.4 kg General appearance: PRESENT: no acute distress Eye exam: PRESENT: PERRLA Respiratory exam: PRESENT: clear to auscultation vinnie Cardiovascular exam: PRESENT: +S1, +S2 GI/Abdominal exam: PRESENT: soft Neurological exam: PRESENT: alert Results Laboratory Results: 05/14/18 04:44 05/14/18 04:44 05/13/18 05/13/18 05/14/18 15:47 22:55 04:44 WBC 19.4 H RBC 3.57 L Hgb 12.2 L Hct 34.6 L MCV 97 MCH 34.2 H MCHC 35.2 RDW 15.5 H Plt Count 267 Seg Neutrophils % 80.0 H Lymphocytes % 7.0 L Monocytes % 12.5 Eosinophils % 0.1 Basophils % 0.4 Absolute Neutrophils 15.5 H Absolute Lymphocytes 1.4 Absolute Monocytes 2.4 H Absolute Eosinophils 0.0 Absolute Basophils 0.1 Carbonic Acid 1.01 L HCO3/H2CO3 Ratio 26:1 ABG pH 7.52 H ABG pCO2 33.7 L ABG pO2 53.6 L ABG HCO3 27.0 H ABG O2 Saturation 91.2 L ABG Base Excess 4.3 FiO2 21% Sodium Potassium Chloride Carbon Dioxide Anion Gap BUN Creatinine Est GFR ( Amer) Est GFR (Non-Af Amer) Glucose Calcium Total Bilirubin AST ALT Alkaline Phosphatase Total Protein Albumin TSH 1.03 Free T4 2.49 H 05/14/18 04:44 WBC RBC Hgb Hct MCV MCH MCHC RDW Plt Count Seg Neutrophils % Lymphocytes % Monocytes % Eosinophils % Basophils % Absolute Neutrophils Absolute Lymphocytes Absolute Monocytes Absolute Eosinophils Absolute Basophils Carbonic Acid HCO3/H2CO3 Ratio ABG pH ABG pCO2 ABG pO2 ABG HCO3 ABG O2 Saturation ABG Base Excess FiO2 Sodium 134.5 L Potassium 3.8 Chloride 100 Carbon Dioxide 28 Anion Gap 7 BUN 11 Creatinine 0.41 L Est GFR ( Amer) > 60 Est GFR (Non-Af Amer) > 60 Glucose 105 Calcium 8.2 L Total Bilirubin 1.8 H AST 30 ALT 10 L Alkaline Phosphatase 185 H Total Protein 6.0 L Albumin 2.7 L TSH Free T4 05/13/18 05/13/18 05/13/18 15:47 15:47 22:23 Creatine Kinase < 20 L < 20 L CK-MB (CK-2) < 0.22 Troponin I 0.019 05/13/18 05/14/18 05/14/18 22:23 04:44 04:44 Creatine Kinase < 20 L CK-MB (CK-2) < 0.22 < 0.22 Troponin I < 0.012 < 0.012 Impressions: Abdomen/Pelvis CT 05/13/18 00:00 IMPRESSION: 1. Partially calcified necrotic mass extending from the uncinate process into the head of the pancreas worrisome for carcinoma. There is biliary dilatation, vessel encasement, possible portal vein thrombosis, and regional adenopathy. 2. Follow up ERCP is recommended. Chest CT 05/13/18 10:42 IMPRESSION: COPD. Right basilar atelectasis. Assessment & Plan - Diagnosis (1) Pancreatic mass Is this a current diagnosis for this admission?: Yes Plan: After long discussion the patient and the POA, he wants to be DNR status (2) Obstructive jaundice Is this a current diagnosis for this admission?: Yes (3) Acute pancreatitis Qualifiers: Pancreatitis type: alcohol induced Acute pancreatitis complication: unspecified Qualified Code(s): K85.20 - Alcohol induced acute pancreatitis without necrosis or infection Is this a current diagnosis for this admission?: Yes (4) Type 2 diabetes mellitus Qualifiers: Diabetes mellitus technician terminal and repeater insulin use: with technician terminal and repeater use Diabetes mellitus complication status: with neurologic complications Diabetes mellitus complication detail: with polyneuropathy Qualified Code(s): E11.42 - Type 2 diabetes mellitus with diabetic polyneuropathy Is this a current diagnosis for this admission?: Yes (5) Alcohol abuse Is this a current diagnosis for this admission?: Yes
[2018-05-14] MEDS: THIAMINE HCL 100 MG, FOLIC ACID 1 MG in NORMAL SALINE 250 ML IV SCH (19:30)
[2018-05-14] MEDS: PHENYTOIN SODIUM EXTENDED 100 MG CAPSULE PO SCH (22:10)
[2018-05-15] MEDS: HYDROMORPHONE HCL INJ/PF 2 MG/ML AMPULE IV PRN ×8 (00:29→19:38)
[2018-05-15] MEDS: POTASSI CL 40 MEQ/NS 1L 1,000 ML IV PRN ×2 (00:33→06:44)
[2018-05-15] MEDS: LORAZEPAM INJ 2 MG/1 ML VIAL IV SCH ×3 (05:47→22:26)
[2018-05-15 06:25] LABS: ABSOLUTE BASOPHILS # (AUTO) 0.1 10^3/uL (0.0-0.2); ABSOLUTE LYMPHOCYTES (AUTO) 1.5 10^3/uL (0.5-4.7); ABSOLUTE MONOCYTES (AUTO) 2.3 10^3/uL (0.1-1.4); BASOPHILS % (AUTO) 0.4 % (0-2); EOSINOPHILS % (AUTO) 0.1 % (0-6); HEMATOCRIT 31.5 % (37.9-51.0); LYMPHOCYTES % (AUTO) 8.1 % (13-45); MEAN CORPUSCULAR HEMOGLOBIN 34.3 pg (27.0-33.4); MEAN CORPUSCULAR VOLUME 98 fl (80-97); MONOCYTES % (AUTO) 12.2 % (3-13); PLATELET COUNT 265 10^3/uL (150-450); RED BLOOD COUNT 3.22 10^6/uL (4.35-5.55); RED CELL DISTRIBUTION WIDTH 15.5 % (11.5-14.0); SEGMENTED NEUTROPHILS % (AUTO) 79.2 % (42-78); TOTAL CELLS COUNTED % (AUTO) 100 %
[2018-05-15 06:49] LABS: ALBUMIN 2.4 g/dL (3.5-5.0); ANION GAP 5 (5-19); BLOOD UREA NITROGEN 12 mg/dL (7-20); CARBON DIOXIDE 22 mmol/L (22-30); CHLORIDE 108 mmol/L (98-107); GLUCOSE 118 mg/dL (75-110); POTASSIUM 4.6 mmol/L (3.6-5.0); SODIUM 135.3 mmol/L (137-145); TOTAL PROTEIN 5.4 g/dL (6.3-8.2)
[2018-05-15 06:51] LABS: ALANINE AMINOTRANSFERASE 17 U/L (21-72); ALKALINE PHOSPHATASE 228 U/L (38-126); ASPARTATE AMINO TRANSFERASE 50 U/L (17-59); BILIRUBIN,DIRECT 0.7 mg/dL (0.0-0.4); BILIRUBIN,TOTAL 1.1 mg/dL (0.2-1.3); CALCIUM 7.3 mg/dL (8.4-10.2)
[2018-05-15] MEDS: NICOTINE 21 MG/24 HR PATCH.TD24 TD SCH (10:07)
[2018-05-15] MEDS: PHENYTOIN SODIUM EXTENDED 100 MG CAPSULE PO SCH (10:07)
[2018-05-15] MEDS: CHLORPROMAZINE HCL 50 MG TABLET PO PRN ×2 (10:07→19:27)
[2018-05-15] MEDS ORDERED: ACETAMINOPHEN 325 MG TABLET PO PRN (18:12)
--- NOTE | 2018-05-15 18:23 | PDOC PROGRESS REPORT ---
Subjective Progress Note for:: 05/15/18 Subjective:: Patient reported adequate pain control presently. Intermittent abdominal pain persist in relation to his pancreatic mass. No nausea or vomiting. Nursing staff reported onset of elevated body temperature today. Reason For Visit: HYPERTENSION, ABDOMINAL PAIN, WEIGHT LOSS, Physical Exam Vital Signs: Temp Pulse Resp BP Pulse Ox 99.2 F 125 H 22 H 107/77 94 05/15/18 03:39 05/15/18 14:00 05/15/18 03:39 05/15/18 03:39 05/15/18 16:39 Intake & Output 05/14/18 05/15/18 05/16/18 06:59 06:59 06:59 Intake Total 2029.2 4218.2 240 Output Total 550 600 Balance 1479.2 4218.2 -360 Weight 66.4 kg 68.2 kg General appearance: PRESENT: mild distress - related to abdominal pain. Remain on supplemental oxygen via nasal cannula. Head exam: PRESENT: atraumatic, normocephalic Eye exam: PRESENT: conjunctiva pink, EOMI, PERRLA. ABSENT: scleral icterus Ear exam: PRESENT: normal external ear exam Mouth exam: PRESENT: moist Respiratory exam: PRESENT: clear to auscultation vinnie, decreased breath sounds - at lungbases Cardiovascular exam: PRESENT: RRR, +S1, +S2. ABSENT: systolic murmur Vascular exam: ABSENT: pallor GI/Abdominal exam: PRESENT: normal bowel sounds, soft, tenderness - LQU and flank region. ABSENT: distended, guarding, mass, organolmegaly, rebound Extremities exam: ABSENT: pedal edema Musculoskeletal exam: PRESENT: normal inspection Neurological exam: PRESENT: alert, awake, oriented to person, oriented to place , oriented to time, oriented to situation, CN II-XII grossly intact. ABSENT: motor sensory deficit Psychiatric exam: PRESENT: appropriate affect, normal mood. ABSENT: homicidal ideation, suicidal ideation Skin exam: PRESENT: dry, intact, warm. ABSENT: cyanosis, rash Results Laboratory Results: 05/15/18 05:02 05/15/18 05:02 05/15/18 05/15/18 05:02 05:02 WBC 19.0 H RBC 3.22 L Hgb 11.0 L Hct 31.5 L MCV 98 H MCH 34.3 H MCHC 35.0 RDW 15.5 H Plt Count 265 Seg Neutrophils % 79.2 H Lymphocytes % 8.1 L Monocytes % 12.2 Eosinophils % 0.1 Basophils % 0.4 Absolute Neutrophils 15.0 H Absolute Lymphocytes 1.5 Absolute Monocytes 2.3 H Absolute Eosinophils 0.0 Absolute Basophils 0.1 Sodium 135.3 L Potassium 4.6 Chloride 108 H Carbon Dioxide 22 Anion Gap 5 BUN 12 Creatinine 0.37 L Est GFR ( Amer) > 60 Est GFR (Non-Af Amer) > 60 Glucose 118 H Calcium 7.3 L Total Bilirubin 1.1 AST 50 ALT 17 L Alkaline Phosphatase 228 H Total Protein 5.4 L Albumin 2.4 L 05/13/18 05/13/18 05/13/18 15:47 15:47 22:23 Creatine Kinase < 20 L < 20 L CK-MB (CK-2) < 0.22 Troponin I 0.019 05/13/18 05/14/18 05/14/18 22:23 04:44 04:44 Creatine Kinase < 20 L CK-MB (CK-2) < 0.22 < 0.22 Troponin I < 0.012 < 0.012 Impressions: Abdomen/Pelvis CT 05/13/18 00:00 IMPRESSION: 1. Partially calcified necrotic mass extending from the uncinate process into the head of the pancreas worrisome for carcinoma. There is biliary dilatation, vessel encasement, possible portal vein thrombosis, and regional adenopathy. 2. Follow up ERCP is recommended. Chest CT 05/13/18 10:42 IMPRESSION: COPD. Right basilar atelectasis. Assessment & Plan - Diagnosis (1) Abdominal pain, LUQ (left upper quadrant) Is this a current diagnosis for this admission?: Yes Plan: Probably related to his pancreatic mass which is probably cancer. (2) Alcohol abuse Is this a current diagnosis for this admission?: Yes (3) Pancreatic mass Is this a current diagnosis for this admission?: Yes Plan: Probably cancer. Patient does not want any further testing or intervention. We will honor his wish and pursue hospice placement and maintain on comfort care while on admission. (4) Hypokalemia Is this a current diagnosis for this admission?: Yes Plan: Improved. D/C IV fluid potassium supplementation. (5) Hypomagnesemia Is this a current diagnosis for this admission?: Yes Plan: IV 2 grams magnesium sulfate rider. Obtain BMP and magnesium in am. - Time Time Spent with patient: 25-34 minutes Medications reviewed and adjusted accordingly: Yes Anticipated discharge: Hospice Within: Other - Inpatient Certification Based on my medical assessment, after consideration of the patient's comorbidities, presenting symptoms, or acuity I expect that the services needed warrant INPATIENT care.: Yes I certify that my determination is in accordance with my understanding of Medicare's requirements for reasonable and necessary INPATIENT services [42 CFR 412.3e].: Yes Medical Necessity: Need Close Monitoring Due to Risk of Patient Decompensation, Need For IV Fluids, Need For Continuous Telemetry Monitoring, Need for Pain Control, Risk of Complication if Not Cared For in Hospital Post Hospital Care: D/C Car Whacker Documentation - Plan Summary Plan Summary: See covering attending physician orders as per above outlined care plan.
[2018-05-15] MEDS: MAGNESIUM SULFATE/D5W 1 GM/100 ML RTUPB IV SCH ×2 (19:25→22:26)
[2018-05-15] MEDS: THIAMINE HCL 100 MG, FOLIC ACID 1 MG in NORMAL SALINE 250 ML IV SCH (19:27)
[2018-05-15] MEDS: NORMAL SALINE 1000 ML 1,000 ML IV PRN (19:29)
[2018-05-15] MEDS ORDERED: MAGNESIUM SULFATE/D5W 1 GM/100 ML RTUPB IV ONE (22:25)
[2018-05-16] MEDS: NORMAL SALINE 1000 ML 1,000 ML IV PRN ×3 (00:24→22:28)
[2018-05-16] MEDS: HYDROMORPHONE HCL INJ/PF 2 MG/ML AMPULE IV PRN ×10 (00:28→19:28)
[2018-05-16] MEDS: LORAZEPAM INJ 2 MG/1 ML VIAL IV SCH ×3 (06:21→22:28)
[2018-05-16 07:11] LABS: ABSOLUTE BASOPHILS # (AUTO) 0.1 10^3/uL (0.0-0.2); ABSOLUTE EOSINOPHILS # (AUTO) 0.1 10^3/uL (0.0-0.6); ABSOLUTE LYMPHOCYTES (AUTO) 1.1 10^3/uL (0.5-4.7); ABSOLUTE MONOCYTES (AUTO) 1.6 10^3/uL (0.1-1.4); ABSOLUTE NEUT (AUTO) 13.6 10^3/uL (1.7-8.2); BASOPHILS % (AUTO) 0.7 % (0-2); EOSINOPHILS % (AUTO) 0.6 % (0-6); HEMATOCRIT 31.3 % (37.9-51.0); HEMOGLOBIN 10.9 g/dL (13.5-17.0); LYMPHOCYTES % (AUTO) 6.5 % (13-45); MEAN CORPUSCULAR HEMOGLOBIN 33.9 pg (27.0-33.4); MEAN CORPUSCULAR HGB CONC 34.7 g/dL (32.0-36.0); MEAN CORPUSCULAR VOLUME 98 fl (80-97); MONOCYTES % (AUTO) 9.7 % (3-13); PLATELET COUNT 308 10^3/uL (150-450); RED CELL DISTRIBUTION WIDTH 15.5 % (11.5-14.0); SEGMENTED NEUTROPHILS % (AUTO) 82.5 % (42-78); TOTAL CELLS COUNTED % (AUTO) 100 %; WHITE BLOOD COUNT 16.5 10^3/uL (4.0-10.5)
[2018-05-16 07:24] LABS: ALANINE AMINOTRANSFERASE 45 U/L (21-72); ALBUMIN 2.2 g/dL (3.5-5.0); ALKALINE PHOSPHATASE 241 U/L (38-126); ANION GAP 5 (5-19); ASPARTATE AMINO TRANSFERASE 127 U/L (17-59); BILIRUBIN,DIRECT 1.1 mg/dL (0.0-0.4); BILIRUBIN,TOTAL 1.5 mg/dL (0.2-1.3); BLOOD UREA NITROGEN 10 mg/dL (7-20); CALCIUM 7.4 mg/dL (8.4-10.2); CARBON DIOXIDE 23 mmol/L (22-30); CHLORIDE 108 mmol/L (98-107); GLUCOSE 117 mg/dL (75-110); POTASSIUM 4.2 mmol/L (3.6-5.0); SODIUM 135.5 mmol/L (137-145); TOTAL PROTEIN 5.4 g/dL (6.3-8.2)
[2018-05-16] MEDS: PHENYTOIN SODIUM EXTENDED 100 MG CAPSULE PO SCH (12:28)
[2018-05-16] MEDS: CHLORPROMAZINE HCL 50 MG TABLET PO PRN (12:28)
[2018-05-16] MEDS: NICOTINE 21 MG/24 HR PATCH.TD24 TD SCH (12:31)
--- NOTE | 2018-05-16 14:45 | PDOC PROGRESS REPORT ---
Subjective Progress Note for:: 05/16/18 Subjective:: Patient reported adequate pain control. Awaiting arrangement for home hospice program. Reason For Visit: HYPERTENSION, ABDOMINAL PAIN, WEIGHT LOSS, Physical Exam Vital Signs: Temp Pulse Resp BP Pulse Ox 97.6 F 98 20 118/72 85 L 05/16/18 11:15 05/16/18 11:15 05/16/18 11:15 05/16/18 11:15 05/16/18 11:15 Intake & Output 05/15/18 05/16/18 05/17/18 06:59 06:59 06:59 Intake Total 4218.2 2303.2 1000 Output Total 601 Balance 4218.2 1702.2 1000 Weight 68.2 kg 73.2 kg Physical Exam: General appearance: PRESENT: mild distress - related to abdominal pain. Remain on supplemental oxygen via nasal cannula. Head exam: PRESENT: atraumatic, normocephalic Respiratory exam: PRESENT: clear to auscultation vinnie, decreased breath sounds - at lung bases Cardiovascular exam: PRESENT: RRR, +S1, +S2. ABSENT: systolic murmur GI/Abdominal exam: PRESENT: normal bowel sounds, soft, tenderness - LQU and flank region. ABSENT: distended, guarding, mass, organomegaly, rebound Extremities exam: ABSENT: pedal edema Musculoskeletal exam: PRESENT: normal inspection Neurological exam: PRESENT: alert, awake, oriented to person, oriented to place , oriented to time, oriented to situation, CN II-XII grossly intact. ABSENT: motor sensory deficit Psychiatric exam: PRESENT: appropriate affect, normal mood. ABSENT: homicidal ideation, suicidal ideation Skin exam: PRESENT: dry, intact, warm. ABSENT: cyanosis, rash Results Laboratory Results: 05/16/18 06:45 05/16/18 06:45 05/16/18 05/16/18 06:45 06:45 WBC 16.5 H RBC 3.20 L Hgb 10.9 L Hct 31.3 L MCV 98 H MCH 33.9 H MCHC 34.7 RDW 15.5 H Plt Count 308 Seg Neutrophils % 82.5 H Lymphocytes % 6.5 L Monocytes % 9.7 Eosinophils % 0.6 Basophils % 0.7 Absolute Neutrophils 13.6 H Absolute Lymphocytes 1.1 Absolute Monocytes 1.6 H Absolute Eosinophils 0.1 Absolute Basophils 0.1 Sodium 135.5 L Potassium 4.2 Chloride 108 H Carbon Dioxide 23 Anion Gap 5 BUN 10 Creatinine 0.39 L Est GFR ( Amer) > 60 Est GFR (Non-Af Amer) > 60 Glucose 117 H Calcium 7.4 L Total Bilirubin 1.5 H AST 127 H ALT 45 Alkaline Phosphatase 241 H Total Protein 5.4 L Albumin 2.2 L 05/13/18 19:00 Clean Catch Midstream Urine Culture - Final Mixed Urogenital Micheline 05/13/18 05/13/18 05/13/18 15:47 15:47 22:23 Creatine Kinase < 20 L < 20 L CK-MB (CK-2) < 0.22 Troponin I 0.019 05/13/18 05/14/18 05/14/18 22:23 04:44 04:44 Creatine Kinase < 20 L CK-MB (CK-2) < 0.22 < 0.22 Troponin I < 0.012 < 0.012 Impressions: Abdomen/Pelvis CT 05/13/18 00:00 IMPRESSION: 1. Partially calcified necrotic mass extending from the uncinate process into the head of the pancreas worrisome for carcinoma. There is biliary dilatation, vessel encasement, possible portal vein thrombosis, and regional adenopathy. 2. Follow up ERCP is recommended. Chest CT 05/13/18 10:42 IMPRESSION: COPD. Right basilar atelectasis. Assessment & Plan - Diagnosis (1) Abdominal pain, LUQ (left upper quadrant) Is this a current diagnosis for this admission?: Yes (2) Pancreatic mass Is this a current diagnosis for this admission?: Yes (3) Alcohol abuse Is this a current diagnosis for this admission?: Yes (4) Hypokalemia Is this a current diagnosis for this admission?: Yes (5) Hypomagnesemia Is this a current diagnosis for this admission?: Yes - Time Time Spent with patient: 25-34 minutes Medications reviewed and adjusted accordingly: Yes Anticipated discharge: Hospice Within: Other - Inpatient Certification Based on my medical assessment, after consideration of the patient's comorbidities, presenting symptoms, or acuity I expect that the services needed warrant INPATIENT care.: Yes I certify that my determination is in accordance with my understanding of Medicare's requirements for reasonable and necessary INPATIENT services [42 CFR 412.3e].: Yes Medical Necessity: Need Close Monitoring Due to Risk of Patient Decompensation, Need For Continuous Telemetry Monitoring, Need for Pain Control, Risk of Complication if Not Cared For in Hospital Post Hospital Care: D/C Business Process 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
[2018-05-16] MEDS ORDERED: PROMETHAZINE HCL INJ 25 MG/1 ML VIAL IV PRN (15:24)
[2018-05-16] MEDS: THIAMINE HCL 100 MG, FOLIC ACID 1 MG in NORMAL SALINE 250 ML IV SCH (18:14)
[2018-05-16] MEDS ORDERED: DIPHENHYDRAMINE HCL 50 MG/ML VIAL IV PRN (18:32)
[2018-05-17] MEDS: HYDROMORPHONE HCL INJ/PF 2 MG/ML AMPULE IV PRN ×5 (04:18→20:38)
[2018-05-17] MEDS: LORAZEPAM INJ 2 MG/1 ML VIAL IV SCH ×3 (05:35→21:49)
[2018-05-17] MEDS: PHENYTOIN SODIUM EXTENDED 100 MG CAPSULE PO SCH (09:38)
[2018-05-17] MEDS: NICOTINE 21 MG/24 HR PATCH.TD24 TD SCH (09:39)
--- NOTE | 2018-05-17 20:10 | PDOC PROGRESS REPORT ---
Subjective Progress Note for:: 05/17/18 Subjective:: Patient's condition continues to deteriorate very rapidly, the oxygen saturation was in the low 70s, familyand patient opted for comfort care Reason For Visit: HYPERTENSION, ABDOMINAL PAIN, WEIGHT LOSS, Physical Exam Vital Signs: Temp Pulse Resp BP Pulse Ox 99.1 F 130 H 15 89/54 L 93 05/17/18 15:33 05/17/18 15:33 05/17/18 15:33 05/17/18 15:33 05/17/18 15:33 Intake & Output 05/16/18 05/17/18 05/18/18 06:59 06:59 06:59 Intake Total 2303.2 2249.2 1000 Output Total 601 160 Balance 1702.2 2249.2 840 Weight 73.2 kg 76.9 kg Respiratory exam: PRESENT: decreased breath sounds Cardiovascular exam: PRESENT: +S1, +S2 GI/Abdominal exam: PRESENT: soft Neurological exam: PRESENT: alert Results Laboratory Results: 05/16/18 06:45 05/16/18 06:45 05/13/18 05/13/18 05/13/18 15:47 15:47 22:23 Creatine Kinase < 20 L < 20 L CK-MB (CK-2) < 0.22 Troponin I 0.019 05/13/18 05/14/18 05/14/18 22:23 04:44 04:44 Creatine Kinase < 20 L CK-MB (CK-2) < 0.22 < 0.22 Troponin I < 0.012 < 0.012 Impressions: Abdomen/Pelvis CT 05/13/18 00:00 IMPRESSION: 1. Partially calcified necrotic mass extending from the uncinate process into the head of the pancreas worrisome for carcinoma. There is biliary dilatation, vessel encasement, possible portal vein thrombosis, and regional adenopathy. 2. Follow up ERCP is recommended. Chest CT 05/13/18 10:42 IMPRESSION: COPD. Right basilar atelectasis. Assessment & Plan - Diagnosis (1) Pancreatic mass Is this a current diagnosis for this admission?: Yes Plan: Patient's condition is very poor, she is transition to comfort care (2) Obstructive jaundice Is this a current diagnosis for this admission?: Yes (3) Acute pancreatitis Qualifiers: Pancreatitis type: alcohol induced Acute pancreatitis complication: unspecified Qualified Code(s): K85.20 - Alcohol induced acute pancreatitis without necrosis or infection Is this a current diagnosis for this admission?: Yes (4) Type 2 diabetes mellitus Qualifiers: Diabetes mellitus remote computer terminal operator insulin use: with fci use Diabetes mellitus complication status: with neurologic complications Diabetes mellitus complication detail: with polyneuropathy Qualified Code(s): E11.42 - Type 2 diabetes mellitus with diabetic polyneuropathy Is this a current diagnosis for this admission?: Yes (5) Alcohol abuse Is this a current diagnosis for this admission?: Yes
[2018-05-18] MEDS: HYDROMORPHONE HCL INJ/PF 2 MG/ML AMPULE IV PRN ×7 (00:27→23:13)
[2018-05-18] MEDS: LORAZEPAM INJ 2 MG/1 ML VIAL IV SCH ×3 (05:49→22:02)
--- NOTE | 2018-05-18 21:28 | PDOC PROGRESS REPORT ---
Subjective Progress Note for:: 05/18/18 Subjective:: patient's condition is about the same on comfort care Reason For Visit: HYPERTENSION, ABDOMINAL PAIN, WEIGHT LOSS, Physical Exam Vital Signs: Temp Pulse Resp BP Pulse Ox 99.3 F 125 H 20 115/80 86 L 05/18/18 19:46 05/18/18 19:46 05/18/18 19:46 05/18/18 19:46 05/18/18 19:46 Intake & Output 05/17/18 05/18/18 05/19/18 06:59 06:59 06:59 Intake Total 2249.2 1000 100 Output Total 985 400 Balance 2249.2 15 -300 Weight 76.9 kg 74.8 kg Results Laboratory Results: 05/16/18 06:45 05/16/18 06:45 05/13/18 14:21 Blood Blood Culture - Final NO GROWTH IN 5 DAYS 05/13/18 11:19 Blood Blood Culture - Final NO GROWTH IN 5 DAYS 05/13/18 05/13/18 05/13/18 15:47 15:47 22:23 Creatine Kinase < 20 L < 20 L CK-MB (CK-2) < 0.22 Troponin I 0.019 05/13/18 05/14/18 05/14/18 22:23 04:44 04:44 Creatine Kinase < 20 L CK-MB (CK-2) < 0.22 < 0.22 Troponin I < 0.012 < 0.012 Impressions: Abdomen/Pelvis CT 05/13/18 00:00 IMPRESSION: 1. Partially calcified necrotic mass extending from the uncinate process into the head of the pancreas worrisome for carcinoma. There is biliary dilatation, vessel encasement, possible portal vein thrombosis, and regional adenopathy. 2. Follow up ERCP is recommended. Chest CT 05/13/18 10:42 IMPRESSION: COPD. Right basilar atelectasis. Assessment & Plan - Diagnosis (1) Pancreatic mass Is this a current diagnosis for this admission?: Yes (2) Obstructive jaundice Is this a current diagnosis for this admission?: Yes (3) Acute pancreatitis Qualifiers: Pancreatitis type: alcohol induced Acute pancreatitis complication: unspecified Qualified Code(s): K85.20 - Alcohol induced acute pancreatitis without necrosis or infection Is this a current diagnosis for this admission?: Yes (4) Type 2 diabetes mellitus Qualifiers: Diabetes mellitus retirement insulin use: with retirement use Diabetes mellitus complication status: with neurologic complications Diabetes mellitus complication detail: with polyneuropathy Qualified Code(s): E11.42 - Type 2 diabetes mellitus with diabetic polyneuropathy Is this a current diagnosis for this admission?: Yes (5) Alcohol abuse Is this a current diagnosis for this admission?: Yes
[2018-05-19] MEDS: HYDROMORPHONE HCL INJ/PF 2 MG/ML AMPULE IV PRN ×4 (02:44→23:26)
[2018-05-19] MEDS: LORAZEPAM INJ 2 MG/1 ML VIAL IV SCH ×3 (06:01→22:16)
--- NOTE | 2018-05-19 20:24 | PDOC PROGRESS REPORT ---
Subjective Progress Note for:: 05/19/18 Subjective:: patient's condition is about the same on comfort care Reason For Visit: HYPERTENSION, ABDOMINAL PAIN, WEIGHT LOSS, Physical Exam Vital Signs: Temp Pulse Resp BP Pulse Ox 98.6 F 120 H 16 109/79 90 L 05/19/18 19:29 05/19/18 19:29 05/19/18 19:29 05/19/18 07:48 05/19/18 19:29 Intake & Output 05/18/18 05/19/18 05/20/18 06:59 06:59 06:59 Intake Total 1000 100 100 Output Total 985 400 Balance 15 -300 100 Weight 74.8 kg 73.6 kg Results Laboratory Results: 05/16/18 06:45 05/16/18 06:45 05/13/18 05/13/18 05/13/18 15:47 15:47 22:23 Creatine Kinase < 20 L < 20 L CK-MB (CK-2) < 0.22 Troponin I 0.019 05/13/18 05/14/18 05/14/18 22:23 04:44 04:44 Creatine Kinase < 20 L CK-MB (CK-2) < 0.22 < 0.22 Troponin I < 0.012 < 0.012 Impressions: Abdomen/Pelvis CT 05/13/18 00:00 IMPRESSION: 1. Partially calcified necrotic mass extending from the uncinate process into the head of the pancreas worrisome for carcinoma. There is biliary dilatation, vessel encasement, possible portal vein thrombosis, and regional adenopathy. 2. Follow up ERCP is recommended. Chest CT 05/13/18 10:42 IMPRESSION: COPD. Right basilar atelectasis. Assessment & Plan - Diagnosis (1) Pancreatic mass Is this a current diagnosis for this admission?: Yes (2) Obstructive jaundice Is this a current diagnosis for this admission?: Yes (3) Acute pancreatitis Qualifiers: Pancreatitis type: alcohol induced Acute pancreatitis complication: unspecified Qualified Code(s): K85.20 - Alcohol induced acute pancreatitis without necrosis or infection Is this a current diagnosis for this admission?: Yes (4) Type 2 diabetes mellitus Qualifiers: Diabetes mellitus termite renewal inspector insulin use: with termite renewal inspector use Diabetes sajan curtis complication status: with neurologic complications Diabetes mellitus complication detail: with polyneuropathy Qualified Code(s): E11.42 - Type 2 diabetes mellitus with diabetic polyneuropathy Is this a current diagnosis for this admission?: Yes (5) Alcohol abuse Is this a current diagnosis for this admission?: Yes
[2018-05-20] MEDS: HYDROMORPHONE HCL INJ/PF 2 MG/ML AMPULE IV PRN ×5 (03:52→23:45)
[2018-05-20] MEDS: LORAZEPAM INJ 2 MG/1 ML VIAL IV SCH ×3 (05:55→22:00)
--- NOTE | 2018-05-20 21:16 | PDOC PROGRESS REPORT ---
Subjective Progress Note for:: 05/20/18 Subjective:: Patient's condition is about the same, he is comfort care Reason For Visit: HYPERTENSION, ABDOMINAL PAIN, WEIGHT LOSS, Physical Exam Vital Signs: Temp Pulse Resp BP Pulse Ox 97.8 F 117 H 16 115/62 84 L 05/20/18 19:53 05/20/18 19:53 05/20/18 19:53 05/20/18 19:53 05/20/18 19:53 Intake & Output 05/19/18 05/20/18 05/21/18 06:59 06:59 06:59 Intake Total 100 400 350 Output Total 400 Balance -300 400 350 Weight 73.6 kg Results Laboratory Results: 05/16/18 06:45 05/16/18 06:45 05/13/18 05/13/18 05/13/18 15:47 15:47 22:23 Creatine Kinase < 20 L < 20 L CK-MB (CK-2) < 0.22 Troponin I 0.019 05/13/18 05/14/18 05/14/18 22:23 04:44 04:44 Creatine Kinase < 20 L CK-MB (CK-2) < 0.22 < 0.22 Troponin I < 0.012 < 0.012 Impressions: Abdomen/Pelvis CT 05/13/18 00:00 IMPRESSION: 1. Partially calcified necrotic mass extending from the uncinate process into the head of the pancreas worrisome for carcinoma. There is biliary dilatation, vessel encasement, possible portal vein thrombosis, and regional adenopathy. 2. Follow up ERCP is recommended. Chest CT 05/13/18 10:42 IMPRESSION: COPD. Right basilar atelectasis. Assessment & Plan - Diagnosis (1) Pancreatic mass Is this a current diagnosis for this admission?: Yes (2) Obstructive jaundice Is this a current diagnosis for this admission?: Yes (3) Acute pancreatitis Qualifiers: Pancreatitis type: alcohol induced Acute pancreatitis complication: unspecified Qualified Code(s): K85.20 - Alcohol induced acute pancreatitis without necrosis or infection Is this a current diagnosis for this admission?: Yes (4) Type 2 diabetes mellitus Qualifiers: Diabetes mellitus mcfp insulin use: with laborer marine terminal use Diabetes mellitus complication status: with neurologic complications Diabetes mellitus complication detail: with polyneuropathy Qualified Code(s): E11.42 - Type 2 diabetes mellitus with diabetic polyneuropathy Is this a current diagnosis for this admission?: Yes (5) Alcohol abuse Is this a current diagnosis for this admission?: Yes
[2018-05-21] MEDS: HYDROMORPHONE HCL INJ/PF 2 MG/ML AMPULE IV PRN ×6 (02:28→21:50)
[2018-05-21] MEDS: LORAZEPAM INJ 2 MG/1 ML VIAL IV SCH ×3 (06:36→21:51)
--- NOTE | 2018-05-21 21:34 | PDOC PROGRESS REPORT ---
Subjective Progress Note for:: 05/21/18 Subjective:: Patient's son was in the room today, he came from [facility], he wants to take his father with hospice to [place] Reason For Visit: HYPERTENSION, ABDOMINAL PAIN, WEIGHT LOSS, Physical Exam Vital Signs: Temp Pulse Resp BP Pulse Ox 97.9 F 119 H 18 101/64 94 05/21/18 07:19 05/21/18 14:00 05/21/18 07:19 05/21/18 07:19 05/21/18 07:19 Intake & Output 05/20/18 05/21/18 05/22/18 06:59 06:59 06:59 Intake Total 400 350 200 Output Total 300 Balance 400 50 200 Weight 73.1 kg Results Laboratory Results: 05/16/18 06:45 05/16/18 06:45 05/13/18 05/13/18 05/13/18 15:47 15:47 22:23 Creatine Kinase < 20 L < 20 L CK-MB (CK-2) < 0.22 Troponin I 0.019 05/13/18 05/14/18 05/14/18 22:23 04:44 04:44 Creatine Kinase < 20 L CK-MB (CK-2) < 0.22 < 0.22 Troponin I < 0.012 < 0.012 Impressions: Abdomen/Pelvis CT 05/13/18 00:00 IMPRESSION: 1. Partially calcified necrotic mass extending from the uncinate process into the head of the pancreas worrisome for carcinoma. There is biliary dilatation, vessel encasement, possible portal vein thrombosis, and regional adenopathy. 2. Follow up ERCP is recommended. Chest CT 05/13/18 10:42 IMPRESSION: COPD. Right basilar atelectasis. Assessment & Plan - Diagnosis (1) Pancreatic mass Is this a current diagnosis for this admission?: Yes (2) Obstructive jaundice Is this a current diagnosis for this admission?: Yes (3) Acute pancreatitis Qualifiers: Pancreatitis type: alcohol induced Acute pancreatitis complication: unspecified Qualified Code(s): K85.20 - Alcohol induced acute pancreatitis without necrosis or infection Is this a current diagnosis for this admission?: Yes (4) Type 2 diabetes mellitus Qualifiers: Diabetes mellitus middle or intermediate school principal insulin use: with usp use Diabetes mellitus complication status: with neurologic complications Diabetes mellitus complication detail: with polyneuropathy Qualified Code(s): E11.42 - Type 2 diabetes mellitus with diabetic polyneuropathy Is this a current diagnosis for this admission?: Yes (5) Alcohol abuse Is this a current diagnosis for this admission?: Yes
[2018-05-22] MEDS: HYDROMORPHONE HCL INJ/PF 2 MG/ML AMPULE IV PRN ×6 (03:33→20:41)
[2018-05-22] MEDS: LORAZEPAM INJ 2 MG/1 ML VIAL IV SCH ×3 (05:26→22:06)
--- NOTE | 2018-05-22 19:02 | PDOC PROGRESS REPORT ---
Subjective Progress Note for:: 05/22/18 Subjective:: Patient's son was in the room today, he came from [facility], he wants to take his father with hospice to [place] Reason For Visit: HYPERTENSION, ABDOMINAL PAIN, WEIGHT LOSS, Physical Exam Vital Signs: Temp Pulse Resp BP Pulse Ox 97.9 F 119 H 18 101/64 94 05/21/18 07:19 05/21/18 14:00 05/21/18 07:19 05/21/18 07:19 05/21/18 07:19 Intake & Output 05/21/18 05/22/18 05/23/18 06:59 06:59 06:59 Intake Total 350 200 600 Output Total 300 Balance 50 200 600 Weight 73.1 kg 72.9 kg General appearance: PRESENT: no acute distress Eye exam: PRESENT: PERRLA Cardiovascular exam: PRESENT: +S1, +S2 Results Laboratory Results: 05/16/18 06:45 05/16/18 06:45 05/13/18 05/13/18 05/13/18 15:47 15:47 22:23 Creatine Kinase < 20 L < 20 L CK-MB (CK-2) < 0.22 Troponin I 0.019 05/13/18 05/14/18 05/14/18 22:23 04:44 04:44 Creatine Kinase < 20 L CK-MB (CK-2) < 0.22 < 0.22 Troponin I < 0.012 < 0.012 Impressions: Abdomen/Pelvis CT 05/13/18 00:00 IMPRESSION: 1. Partially calcified necrotic mass extending from the uncinate process into the head of the pancreas worrisome for carcinoma. There is biliary dilatation, vessel encasement, possible portal vein thrombosis, and regional adenopathy. 2. Follow up ERCP is recommended. Chest CT 05/13/18 10:42 IMPRESSION: COPD. Right basilar atelectasis. Assessment & Plan - Diagnosis (1) Pancreatic mass Is this a current diagnosis for this admission?: Yes (2) Obstructive jaundice Is this a current diagnosis for this admission?: Yes (3) Acute pancreatitis Qualifiers: Pancreatitis type: alcohol induced Acute pancreatitis complication: unspecified Qualified Code(s): K85.20 - Alcohol induced acute pancreatitis without necrosis or infection Is this a current diagnosis for this admission?: Yes (4) Type 2 diabetes mellitus Qualifiers: Diabetes mellitus intermediate insulin use: with intermediate use Diabetes mellitus complication status: with neurologic complications Diabetes mellitus complication detail: with polyneuropathy Qualified Code(s): E11.42 - Type 2 diabetes mellitus with diabetic polyneuropathy Is this a current diagnosis for this admission?: Yes (5) Alcohol abuse Is this a current diagnosis for this admission?: Yes - Plan Summary Plan Summary: Consult discharge planning to arrange for hospice in [facility]
[2018-05-23] MEDS: HYDROMORPHONE HCL INJ/PF 2 MG/ML AMPULE IV PRN ×6 (01:24→22:03)
[2018-05-23] MEDS: LORAZEPAM INJ 2 MG/1 ML VIAL IV SCH ×3 (05:50→22:04)
--- NOTE | 2018-05-23 14:06 | PDOC PROGRESS REPORT ---
Subjective Progress Note for:: 05/23/18 Subjective:: Patient seen by the bedside no new complaints Reason For Visit: HYPERTENSION, ABDOMINAL PAIN, WEIGHT LOSS, Physical Exam Vital Signs: Temp Pulse Resp BP Pulse Ox 97.9 F 119 H 18 101/64 94 05/21/18 07:19 05/21/18 14:00 05/21/18 07:19 05/21/18 07:19 05/21/18 07:19 Intake & Output 05/22/18 05/23/18 05/24/18 06:59 06:59 06:59 Intake Total 200 840 Balance 200 840 Weight 72.9 kg Results Laboratory Results: 05/16/18 06:45 05/16/18 06:45 05/13/18 05/13/18 05/13/18 15:47 15:47 22:23 Creatine Kinase < 20 L < 20 L CK-MB (CK-2) < 0.22 Troponin I 0.019 05/13/18 05/14/18 05/14/18 22:23 04:44 04:44 Creatine Kinase < 20 L CK-MB (CK-2) < 0.22 < 0.22 Troponin I < 0.012 < 0.012 Impressions: Abdomen/Pelvis CT 05/13/18 00:00 IMPRESSION: 1. Partially calcified necrotic mass extending from the uncinate process into the head of the pancreas worrisome for carcinoma. There is biliary dilatation, vessel encasement, possible portal vein thrombosis, and regional adenopathy. 2. Follow up ERCP is recommended. Chest CT 05/13/18 10:42 IMPRESSION: COPD. Right basilar atelectasis. Assessment & Plan - Diagnosis (1) Pancreatic mass Is this a current diagnosis for this admission?: Yes (2) Obstructive jaundice Is this a current diagnosis for this admission?: Yes (3) Acute pancreatitis Qualifiers: Pancreatitis type: alcohol induced Acute pancreatitis complication: unspecified Qualified Code(s): K85.20 - Alcohol induced acute pancreatitis without necrosis or infection Is this a current diagnosis for this admission?: Yes (4) Type 2 diabetes mellitus Qualifiers: Diabetes mellitus custodial insulin use: with custodial use Diabetes mellitus complication status: with neurologic complications Diabetes mellitus complication detail: with polyneuropathy Qualified Code(s): E11.42 - Type 2 diabetes mellitus with diabetic polyneuropathy Is this a current diagnosis for this admission?: Yes (5) Alcohol abuse Is this a current diagnosis for this admission?: Yes
[2018-05-24] MEDS: HYDROMORPHONE HCL INJ/PF 2 MG/ML AMPULE IV PRN ×5 (04:17→21:47)
[2018-05-24] MEDS: LORAZEPAM INJ 2 MG/1 ML VIAL IV SCH ×3 (06:26→21:47)
--- NOTE | 2018-05-24 16:35 | PDOC PROGRESS REPORT ---
Subjective Progress Note for:: 05/24/18 Subjective:: Awaiting disposition for this patient, patient's son is supposed to have him transferred to his home in [place] with hospice Reason For Visit: HYPERTENSION, ABDOMINAL PAIN, WEIGHT LOSS, Physical Exam Vital Signs: Temp Pulse Resp BP Pulse Ox 97.9 F 119 H 18 101/64 94 05/21/18 07:19 05/21/18 14:00 05/21/18 07:19 05/21/18 07:19 05/21/18 07:19 Intake & Output 05/23/18 05/24/18 05/25/18 06:59 06:59 06:59 Intake Total 840 1164 300 Output Total 200 400 Balance 840 964 -100 General appearance: PRESENT: no acute distress Eye exam: PRESENT: PERRLA Results Laboratory Results: 05/16/18 06:45 05/16/18 06:45 05/13/18 05/13/18 05/13/18 15:47 15:47 22:23 Creatine Kinase < 20 L < 20 L CK-MB (CK-2) < 0.22 Troponin I 0.019 05/13/18 05/14/18 05/14/18 22:23 04:44 04:44 Creatine Kinase < 20 L CK-MB (CK-2) < 0.22 < 0.22 Troponin I < 0.012 < 0.012 Impressions: Abdomen/Pelvis CT 05/13/18 00:00 IMPRESSION: 1. Partially calcified necrotic mass extending from the uncinate process into the head of the pancreas worrisome for carcinoma. There is biliary dilatation, vessel encasement, possible portal vein thrombosis, and regional adenopathy. 2. Follow up ERCP is recommended. Chest CT 05/13/18 10:42 IMPRESSION: COPD. Right basilar atelectasis. Assessment & Plan - Diagnosis (1) Pancreatic mass Is this a current diagnosis for this admission?: Yes (2) Obstructive jaundice Is this a current diagnosis for this admission?: Yes (3) Acute pancreatitis Qualifiers: Pancreatitis type: alcohol induced Acute pancreatitis complication: unspecified Qualified Code(s): K85.20 - Alcohol induced acute pancreatitis without necrosis or infection Is this a current diagnosis for this admission?: Yes (4) Type 2 diabetes mellitus Qualifiers: Diabetes mellitus buttermaker helper insulin use: with buttermaker helper use Diabetes mellitus complication status: with neurologic complications Diabetes mellitus complication detail: with polyneuropathy Qualified Code(s): E11.42 - Type 2 diabetes mellitus with diabetic polyneuropathy Is this a current diagnosis for this admission?: Yes (5) Alcohol abuse Is this a current diagnosis for this admission?: Yes
[2018-05-25] MEDS: HYDROMORPHONE HCL INJ/PF 2 MG/ML AMPULE IV PRN ×4 (02:55→16:12)
[2018-05-25] MEDS: LORAZEPAM INJ 2 MG/1 ML VIAL IV SCH ×3 (07:01→22:36)
--- NOTE | 2018-05-25 14:43 | PDOC PROGRESS REPORT ---
Subjective Progress Note for:: 05/25/18 Subjective:: Awaiting disposition for this patient, patient's son is supposed to have him transferred to his home in [place] with hospice Reason For Visit: HYPERTENSION, ABDOMINAL PAIN, WEIGHT LOSS, Physical Exam Vital Signs: Temp Pulse Resp BP Pulse Ox 97.9 F 119 H 18 101/64 94 05/21/18 07:19 05/21/18 14:00 05/21/18 07:19 05/21/18 07:19 05/21/18 07:19 Intake & Output 05/24/18 05/25/18 05/26/18 06:59 06:59 06:59 Intake Total 1164 418 Output Total 200 725 Balance 964 -307 Results Laboratory Results: 05/16/18 06:45 05/16/18 06:45 05/13/18 05/13/18 05/13/18 15:47 15:47 22:23 Creatine Kinase < 20 L < 20 L CK-MB (CK-2) < 0.22 Troponin I 0.019 05/13/18 05/14/18 05/14/18 22:23 04:44 04:44 Creatine Kinase < 20 L CK-MB (CK-2) < 0.22 < 0.22 Troponin I < 0.012 < 0.012 Impressions: Abdomen/Pelvis CT 05/13/18 00:00 IMPRESSION: 1. Partially calcified necrotic mass extending from the uncinate process into the head of the pancreas worrisome for carcinoma. There is biliary dilatation, vessel encasement, possible portal vein thrombosis, and regional adenopathy. 2. Follow up ERCP is recommended. Chest CT 05/13/18 10:42 IMPRESSION: COPD. Right basilar atelectasis. Assessment & Plan - Diagnosis (1) Pancreatic mass Is this a current diagnosis for this admission?: Yes (2) Obstructive jaundice Is this a current diagnosis for this admission?: Yes (3) Acute pancreatitis Qualifiers: Pancreatitis type: alcohol induced Acute pancreatitis complication: unspecified Qualified Code(s): K85.20 - Alcohol induced acute pancreatitis without necrosis or infection Is this a current diagnosis for this admission?: Yes (4) Type 2 diabetes mellitus Qualifiers: Diabetes mellitus atm technician insulin use: with jail use Diabetes mellitus complication status: with neurologic complications Diabetes mellitus complication detail: with polyneuropathy Qualified Code(s): E11.42 - Type 2 diabetes mellitus with diabetic polyneuropathy Is this a current diagnosis for this admission?: Yes (5) Alcohol abuse Is this a current diagnosis for this admission?: Yes
[2018-05-26] MEDS: HYDROMORPHONE HCL INJ/PF 2 MG/ML AMPULE IV PRN ×3 (03:24→17:20)
[2018-05-26] MEDS: LORAZEPAM INJ 2 MG/1 ML VIAL IV SCH ×3 (05:35→21:55)
--- NOTE | 2018-05-26 15:05 | PDOC PROGRESS REPORT ---
Subjective Progress Note for:: 05/26/18 Subjective:: Patient condition about the same Reason For Visit: HYPERTENSION, ABDOMINAL PAIN, WEIGHT LOSS, Physical Exam Vital Signs: Temp Pulse Resp BP Pulse Ox 97.9 F 119 H 18 101/64 94 05/21/18 07:19 05/21/18 14:00 05/21/18 07:19 05/21/18 07:19 05/21/18 07:19 Intake & Output 05/25/18 05/26/18 05/27/18 06:59 06:59 06:59 Intake Total 418 237 Output Total 725 Balance -307 237 Weight 72 kg General appearance: PRESENT: no acute distress Eye exam: PRESENT: PERRLA Respiratory exam: PRESENT: clear to auscultation vinnie Cardiovascular exam: PRESENT: +S1, +S2 Results Laboratory Results: 05/16/18 06:45 05/16/18 06:45 05/13/18 05/13/18 05/13/18 15:47 15:47 22:23 Creatine Kinase < 20 L < 20 L CK-MB (CK-2) < 0.22 Troponin I 0.019 05/13/18 05/14/18 05/14/18 22:23 04:44 04:44 Creatine Kinase < 20 L CK-MB (CK-2) < 0.22 < 0.22 Troponin I < 0.012 < 0.012 Impressions: Abdomen/Pelvis CT 05/13/18 00:00 IMPRESSION: 1. Partially calcified necrotic mass extending from the uncinate process into the head of the pancreas worrisome for carcinoma. There is biliary dilatation, vessel encasement, possible portal vein thrombosis, and regional adenopathy. 2. Follow up ERCP is recommended. Chest CT 05/13/18 10:42 IMPRESSION: COPD. Right basilar atelectasis. Assessment & Plan - Diagnosis (1) Pancreatic mass Is this a current diagnosis for this admission?: Yes (2) Obstructive jaundice Is this a current diagnosis for this admission?: Yes (3) Acute pancreatitis Qualifiers: Pancreatitis type: alcohol induced Acute pancreatitis complication: unspecified Qualified Code(s): K85.20 - Alcohol induced acute pancreatitis without necrosis or infection Is this a current diagnosis for this admission?: Yes (4) Type 2 diabetes mellitus Qualifiers: Diabetes mellitus terminal block assembler insulin use: with terminal block assembler use Diabetes mellitus complication status: with neurologic complications Diabetes mellitus complication detail: with polyneuropathy Qualified Code(s): E11.42 - Type 2 diabetes mellitus with diabetic polyneuropathy Is this a current diagnosis for this admission?: Yes (5) Alcohol abuse Is this a current diagnosis for this admission?: Yes
[2018-05-27] MEDS: LORAZEPAM INJ 2 MG/1 ML VIAL IV SCH ×3 (05:15→22:47)
[2018-05-27] MEDS: HYDROMORPHONE HCL INJ/PF 2 MG/ML AMPULE IV PRN ×3 (11:49→19:49)
[2018-05-27 20:06] VITALS: BP 134/75
--- NOTE | 2018-05-27 20:34 | PDOC TRANSFER SUMMARY ---
General - Admit/Disc Date/PCP Admission Date/Primary Care Provider: 05/13/18 10:15 SANTIAGO SEGUNDO MD Discharge Date: 05/28/18 - Discharge Diagnosis (1) Pancreatic mass Is this a current diagnosis for this admission?: Yes (2) Obstructive jaundice Is this a current diagnosis for this admission?: Yes (3) Acute pancreatitis Is this a current diagnosis for this admission?: Yes (4) Type 2 diabetes mellitus Is this a current diagnosis for this admission?: Yes (5) Alcohol abuse Is this a current diagnosis for this admission?: Yes - Additional Information Resuscitation Status: Do Not Resuscitate Home Medications: Alendronate Sodium 70 mg PO WE 10/27/16 Atenolol 100 mg PO DAILY 10/27/16 Cholecalciferol (Vitamin D3) [Vitamin D3] 2,000 unit PO DAILY 10/27/16 Duloxetine HCl 60 mg PO DAILY 10/27/16 Lorazepam 1 mg PO BID 10/27/16 Metformin HCl [Metformin HCl ER] 500 mg PO WSUPPER 10/27/16 Phenytoin Sodium Extended 300 mg PO DAILY 10/27/16 Potassium Chloride 10 meq PO DAILY 10/27/16 Tamsulosin HCl [Flomax 0.4 mg Cap.sr] 0.4 mg PO DAILY 10/27/16 Thiamine HCl [Vitamin B-1] 100 mg PO DAILY 10/27/16 Vitamin E 400 unit PO DAILY 10/27/16 Multivit-Min/FA/Lycopen/Lutein [Centrum Silver Men Tablet] 1 tab PO DAILY 11/09/16 Omeprazole 40 mg PO DAILY 05/13/18 Pravastatin Sodium [Pravachol] 40 mg PO DAILY 05/13/18 Telmisartan/Hydrochlorothiazid [Micardis HCT 80-25 mg Tablet] 1 each PO DAILY 05/13/18 Umeclidinium Brm/Vilanterol Tr [Anoro Ellipta 62.5-25 Mcg INH] 1 puff IH DAILY 05/13/18 History of Present Illness Admission Date/PCP: 05/13/18 10:15 SANTIAGO SEGUNDO MD History of Present Illness: MATEO ROCK is a 68 year old male Patient came to the office today for routine annual wellness visit, I noticed that he has lost roughly 10 pounds in a span of a month, he also complained of abdominal pain, on examination in the office there is tenderness of the abdomen , the conjunctiva was pale and slightly icterus.He was admitted directly from the office into the hospital for further evaluation of his symptoms, the hemogram demonstrated severe leuk ocytosis predominantly neutrophils, CT scan of chest abdomen and pelvis with IV contrast was obtained, it demonstrated intra-and extrahepatic biliary dilatation, periportal edema also found was a partially calcified mass in the uncinate process of the pancreas with small superior low-density margins, it measures 5.8 x 7.2 cm in craniocaudal by transverse diameter. Necrotic part of the mass encases the celiac artery, SMA and SMV there is regional adenopathy, gallstones. This mass is suspicious for malignancy. There is evidence of obstructive jaundice with hyperbilirubinemia, elevated alkaline phosphataseHe has a history of alcohol abuse he drinks 6 beers every day he also smokes cigarettes for many years Hospital Course Hospital Course: Patient was diagnosed with pancreatic mass, he declined further diagnostic evaluation, he opted for comfort care and hospice care. He has been comfort care since admission, a bed is now available for him to be transferred to hospice on Physical Exam Vital Signs: Temp Pulse Resp BP Pulse Ox 97.4 F 95 16 134/75 H 95 05/27/18 19:44 05/27/18 19:44 05/27/18 19:44 05/27/18 19:44 05/27/18 19:44 Intake & Output 05/26/18 05/27/18 05/28/18 06:59 06:59 06:59 Intake Total 237 0 10 Output Total 120 Balance 237 0 -110 Weight 72 kg Results Laboratory Results: 05/16/18 06:45 05/16/18 06:45 05/13/18 05/13/18 05/13/18 15:47 15:47 22:23 Creatine Kinase < 20 L < 20 L CK-MB (CK-2) < 0.22 Troponin I 0.019 05/13/18 05/14/18 05/14/18 22:23 04:44 04:44 Creatine Kinase < 20 L CK-MB (CK-2) < 0.22 < 0.22 Troponin I < 0.012 < 0.012 Impressions: Abdomen/Pelvis CT 05/13/18 00:00 IMPRESSION: 1. Partially calcified necrotic mass extending from the uncinate process into the head of the pancreas worrisome for carcinoma. There is biliary dilatation, vessel encasement, possible portal vein thrombosis, and regional adenopathy. 2. Follow up ERCP is recommended. Chest CT 05/13/18 10:42 IMPRESSION: COPD. Right basilar atelectasis. Qualifiers - * PATIENT BEING DISCHARGED WITH ANY OF THE FOLLOWING DIAGNOSIS: No
[2018-05-28] MEDS: HYDROMORPHONE HCL INJ/PF 2 MG/ML AMPULE IV PRN ×3 (02:51→14:35)
[2018-05-28] MEDS: LORAZEPAM INJ 2 MG/1 ML VIAL IV SCH ×2 (05:58→13:22)
== END 2018-05-28 15:30 | disposition hospice, inpatient (51) | DRG 435 ==
LOC: 3W 10:15 → 4S 05-19 17:55 → 3W 05-19 18:04 → 4S 05-21 20:04
PROVIDERS: ADMIT Internal Medicine; ATTEND Internal Medicine
DX: C25.0 Malignant neoplasm of head of pancreas (principal); K85.20 Alcohol induced acute pancreatitis without necrosis or infection; K83.1 Obstruction of bile duct; F10.10 Alcohol abuse, uncomplicated; E87.6 Hypokalemia; E83.42 Hypomagnesemia; E11.42 Type 2 diabetes mellitus with diabetic polyneuropathy; R63.4 Abnormal weight loss; F17.210 Nicotine dependence, cigarettes, uncomplicated; Z51.5 Encounter for palliative care; E78.5 Hyperlipidemia, unspecified; I10 Essential (primary) hypertension; J44.9 Chronic obstructive pulmonary disease, unspecified; F32.9 Major depressive disorder, single episode, unspecified; Z80.0 Family history of malignant neoplasm of digestive organs; Z79.84 Long term (current) use of oral hypoglycemic drugs
CPT/HCPCS: 36415; 71260; 74177; 80048; 80076; 80307; 82150; 82550; 82553; 82803; 82962; 83036; 83690; 83735; 84100; 84439; 84443; 84484; 85025; 85610; 85730; 87040; 87086; J1170; J1200; J2060; J3411; J3475; J3480; J3490; J7030; J7050